=== PATIENT | female | born 1945 | race Caucasian/White ===

== ENCOUNTER 2018-09-18 13:49 | Inpatient (IN) | payer MEDICARE, MEDICAID ==
[2018-09-18 14:53] LABS: Hemoglobin 9.6 g/dL (12.0-16.0); Mean Corpuscular HGB CONC 29.7 g/dL (32.0-36.0); Mean Corpuscular Hemoglobin 28.9 pg (27.0-31.0); Mean Corpuscular Volume 97.3 fL (78.0-98.0); Mean Platelet Volume 7.2 fL (7.4-10.4); Platelet Count 307 thou/uL (130-400); RBC Distribution Width 18.1 % (11.5-14.5); White Blood Cell (WBC) Count 3.8 thou/uL (4.8-10.8)
[2018-09-18 14:58] LABS: Bilirubin Negative (Negative); Blood, Urine Negative (Negative); Clarity CLOUDY (Clear); Glucose, Urine (Dipstick) Negative (Negative); Leukocyte Moderate (Negative); Nitrite Negative (Negative); Protein, Urine (Dipstick) Negative (Neg-Trace); Specific Gravity, Urine 1.012 (1.002-1.036); Urobilinogen 0.2 mg/dL (0.2-1.0)
[2018-09-18 15:03] LABS: Bacteria/HPF 3+ HPF (None Seen); Hyaline Casts/LPF 7-10 HYALINE CAST LPF (0-3 Hyaline); Pathc Cast-AUWi Flag 0.95 (0-2.49); RBC/HPF None Seen HPF (0-3); Squamous Epithelial 0-3 HPF (0-3); WBC/HPF 21-50 HPF (0-3)
[2018-09-18 15:08] LABS: ALT (SGPT) Less than 7 U/L (8-55); AST (SGOT) 11 U/L (5-34); Albumin 3.6 g/dL (3.4-4.8); Alkaline Phosphatase 63 U/L (40-150); Anion Gap 12 mmol/L (10-20); BUN (Urea Nitrogen) 16 mg/dL (9.8-20.1); Bilirubin, Total 0.2 mg/dL (0.2-1.2); Calc. Creatinine Clearance 0 mL/min (70-130); Calcium 8.7 mg/dL (7.8-10.44); Carbon Dioxide 34 mmol/L (23-31); Chloride 101 mmol/L (98-107); Estimated GFR-MDRD 60; Globulin 3.2 g/dL (2.4-3.5); Glucose 93 mg/dL (83-110); Lipase 54 U/L (8-78); Potassium 5.3 mmol/L (3.5-5.1); Protein, Total 6.8 g/dL (6.0-8.3); Sodium 142 mmol/L (136-145)
[2018-09-18 15:10] LABS: Acetaminophen Less than 6.0 mcg/mL (10.0-30.0); Alcohol Less than 10 mg/dL (Less than 10); Salicylate Less than 8.0 mg/dL (15.0-30.0)
[2018-09-18 15:14] LABS: Amphetamine Not Detected (NotDetected); Barbiturates Screen Not Detected (NotDetected); Benzodiazepine Screen Not Detected (NotDetected); Cocaine Metabolite Screen Not Detected (NotDetected); Medtox Control Line Valid? VALID (VALID); Medtox Reader # READER 4; Methadone Not Detected (NotDetected); Methamphetamine Not Detected (NotDetected); Opiate Screen Not Detected (NotDetected); Oxycodone Screen Not Detected (NotDetected); Phencyclidine (PCP) Not Detected (NotDetected); THC/Cannabinoid Screen Not Detected (NotDetected); Tricyclic Screen Not Detected (NotDetected)
[2018-09-18 15:18] LABS: Anisocytosis MODERATE=16-30 cells (100X) (0-5/hpf); Band 5 % (5-11); Elliptocytes SLIGHT = 2-5 cells (100X) (0-1/hpf); Eosinophils 1 % (0-10); Hypochromia SLIGHT = 6-15 cells (100X) (0-5/hpf); Lymphocytes 32 % (21-51); MDiff Complete? YES; Monocytes 14 % (0-10); Neutrophil 47 % (42-75); Ovalocytes SLIGHT = 2-5 cells (100X) (0-1/hpf); Platelet Morphology Comment Appears Adequate; Poikilocytosis SLIGHT = 6-15 cells (100X) (0-5/hpf); Polychromasia SLIGHT = 2-3 cells (100X) (0-2/hpf); Reactive Lymphocytes 1 % (0-10)
--- NOTE | 2018-09-18 15:22 | RAD ---
PORTABLE CHEST: History: Hypoxia. Fatigue. Generalized weakness. Comparison: 01-03-16 FINDINGS: Heart size is enlarged. Increased retrocardiac density is felt to be on the basis of a hiatal hernia as well as what appears to be some increased parenchymal lung changes. There is now some blunting to the left costophrenic angle suggesting some associated effusion. There is also parenchymal change in the left base, probably related to atelectasis or scarring. Right lung is clear. Pulmonary vessels ar e not overtly engorged and no interstitial edema. IMPRESSION: 1. Marked cardiomegaly. 2. Increased retrocardiac density seen which appears to be a combination of some element of left side d effusion and hiatal hernia. POS: [facility]
--- NOTE | 2018-09-18 15:23 | CT ---
CT BRAIN: History: Increasing agitation, fatigue, generalized weakness, hypoxia. Date: 09-18-18 Comparison: 01-03-16 FINDINGS: Noncontrast enhanced CT images of the brain obtained and demonstrate some mild cortical atrophy and d eep white matter ischemic changes. No evidence of acute intracranial masses, hemorrhages, strokes or contusions seen. Ventricles are of normal size. IMPRESSION: No evidence of acute intracranial abnormalities seen. POS: [facility]
[2018-09-18] MEDS ORDERED: cefTRIAXone\\ROCEPHIN 1 GM VIAL ONE (16:14)
[2018-09-18] MEDS ORDERED: Ondansetron PF 4 MG/2 ML Vial IVP PRN ×2 (20:24→20:26)
[2018-09-18] MEDS ORDERED: Ondansetron ODT 4 MG TAB SL PRN (20:24)
[2018-09-18] MEDS ORDERED: Acetaminophen 325 MG TAB PO PRN ×2 (20:24→20:26)
[2018-09-18] MEDS ORDERED: Milk Of Magnesia 30 ML UDCUP PO PRN (20:26)
[2018-09-18] MEDS ORDERED: Ondansetron ODT 4 MG TAB PO PRN (20:26)
[2018-09-18] MEDS ORDERED: Lorazepam 1 MG TAB PO PRN (20:26)
[2018-09-18] MEDS ORDERED: Senokot S 8.6-50 MG TAB PO PRN (20:26)
[2018-09-18] MEDS ORDERED: Guaifenesin DM 100-10/5 ML UDCUP PO PRN (20:26)
[2018-09-18] MEDS ORDERED: Acetaminophen 650 MG Suppository PR PRN (20:26)
[2018-09-18] MEDS: Famotidine 20 MG TAB PO SCH (21:42)
[2018-09-18] MEDS: OLANZapine 5 MG TAB PO SCH (21:42)
[2018-09-18] MEDS: traZODone HCl 50 MG TAB PO SCH (21:43)
[2018-09-18] MEDS: Docusate 100 MG CAP PO SCH (21:43)
[2018-09-18] MEDS: clonazePAM 0.5 MG TAB PO SCH (21:43)
[2018-09-18] MEDS: Sodium Chloride 0.9% 1,000 ML IV SCH (21:47)
--- NOTE | 2018-09-18 23:23 | HP ---
PRIMARY CARE PHYSICIAN: Tracey Queen MD at [facility]. CHIEF COMPLAINT: Altered mental status. HISTORY OF PRESENT ILLNESS: This is a 73-year-old white female with a known history of schizophrenia who is often altered, per mcc report was more altered than normal. As a result, she was sent into the emergency room. She also has reportedly had agitation, fatigue and generalized weakness and some hypoxia per the mcc, though she is normally on 2 L of oxygen and has been saturating well on that in the emergency room. The patient was noted to have a moderate leukocyte esterase, 21-50 white blood cells and 3+ bacteria on her urinalysis and so is being admitted for UTI. Of note, her son and medical power of baccarat manager, Jose Lara reported that she had gained about 14 pounds in 14 days, though he believes it is because the nursing has been giving her some of her money to go buy Cokes and candy whenever she wanted to and so, he thinks that is the source of her weight gain. She has no known history of congestive heart failure as far as I can find from history of the chart. PAST MEDICAL HISTORY: All history taken from the patient's signed mcc chart and previous medical record as the patient is not able to give medical history due to her schizophrenia, as well as her current altered mental status. 1. History of schizophrenia. 2. Hypertension. 3. Dementia. 4. Chronic anemia. 5. Recurrent urinary tract infections with previous E coli sepsis in 2015. 6. Anxiety disorder. PAST SURGICAL HISTORY: Unknown. SOCIAL HISTORY: No known tobacco, alcohol, or illicit drug use. She has been in the [facility] for about 7 years now. Her brother is her medical power of baccarat manager. His name is Jose Lara. He reports that the patient is a do not attempt resuscitation. The patient is listed as full code on mcc chart. We will have Palliative Care confirm this with him to see about if he needs to sign any sort of [id number] DNR. FAMILY HISTORY: Father in his 80s with heart valve problems. Mother in her 80s and had infected bedsore and pulmonary embolism. She has three brothers and three sisters. One brother has of lung cancer. ALLERGIES: 1. PENICILLIN. 2. POPCORN. CURRENT MEDICATIONS: Per mcc chart: 1. Klonopin 0.5 mg at night. 2. Trazodone 50 mg at night. 3. Zyprexa 25 mg at bedtime. 4. Vitamin C 500 mg daily. 5. Colace 100 mg daily. 6. Vitamin B12 of 1000 mcg daily. 7. Depakote delayed release 750 mg twice a day. 8. Furosemide 20 mg daily. 9. Lisinopril 20 mg daily. 10. Norvasc 5 mg daily. 11. Multivitamin 1 tablet twice a day. 12. Synthroid 75 mcg daily. 13. Zantac 150 mg daily. 14. Zyprexa 25 mg at bedtime. 15. Tylenol as needed. 16. Robitussin DM as needed. 17. Maalox as needed. 18. Milk of magnesia as needed. 19. Zofran as needed. REVIEW OF SYSTEMS: Unable to obtain secondary to patient's schizophrenia and altered mental status. She does report pain in the bilateral hips, but was not able to give me any further history. PHYSICAL EXAMINATION: VITAL SIGNS: Blood pressure 128/46, pulse 85, respirations 18, temperature 98.1 , and O2 saturation 94% on 2 L. GENERAL: This is a well-developed obese white female, in no acute distress. Sleepy but arousable, was difficult to get her to stay awake enough to talk to me until I mentioned that we will be moving her to a different room and then, she woke up, was wide awake and was saying that she wanted to stay in the ER room and she did not want to be moved to another hospital and did not want to be moved to another room. HEENT: Pupils are equal, round, and reactive to light. Oropharynx clear without lesions, erythema, or exudate. NECK: Supple. No lymphadenopathy. No thyroid nodules or enlargement. HEART: Regular rate and rhythm. No murmurs, rubs, or gallops. LUNGS: Clear to auscultation bilaterally. No wheezes, crackles, or rhonchi. ABDOMEN: Soft, obese, nontender to palpation. Normoactive bowel sounds. No hepatosplenomegaly or other masses. It was difficult to get exam because when I would be about to start examining her belly, she would curl up into a ball and tense up her tummy. She did deny any pain while pressing on it though. EXTREMITIES: No clubbing, cyanosis, or edema. She did report some pain in bilateral hips with any sort of manipulation of her ankles. SKIN: The patient has some mild erythema of her bilateral legs and ankles, does not look like cellulitis, but does look like secondary to edema. She does have 1+ pitting edema in bilateral lower extremities. NEUROLOGIC: The patient is moving all extremities, has no facial droop. PSYCHIATRIC: She is alert. She was eventually alert once I said we are going to move her to a different room. She was oriented to person. She is in the hospital but does not know which hospital, does not know which town she is in and does not know the year. LABORATORY DATA: White blood cell count 3.8, hemoglobin 9.6, hematocrit 32.2, platelet count 307, normal differential. Complete metabolic panel is notable for potassium of 5.3, carbon dioxide of 34. Rest is normal. Lipase was negative. Ammonia was negative. Urinalysis had moderate leukocyte esterase, 21-50 white blood cells, 3+ bacteria, and some hyaline casts. Urine drug screen was negative. Serum toxicology screen was negative. CT of the brain was without any acute abnormalities. The patient's chest x-ray, we did review the chest x-ray done in the emergency room along with the radiologist's report. There was marked cardiomegaly and effusion in the left base, also may have little bit of a hiatal hernia. IMAGING: EKG: I did review the EKG done in the emergency room, which shows normal sinus rhythm with no ST-segment changes and no peaked T-waves. ASSESSMENT: 1. Altered mental status, uncertain what patient's baseline is, but it sounds that she gets altered easily and last time we had her in for altered mental status, she ended up not having a urinary tract infection or any other medical complaints. Her medical problems this time, it does look like she does have urinary tract infection. It does not look severe. She got a dose of Rocephin in the emergency room. We are culturing and we will continue Rocephin in the hospital. We will also continue patient's psychiatric medications. 2. Cardiomegaly with lower extremity edema and new effusion in the left lung base concerned for possibility of congestive heart failure from her chronic hypertension. She also has weight gain recently. I will check brain natriuretic peptide on her, get an echocardiogram, and we will start her on a low dose of Lasix. This will also help with her mild hyperkalemia. She does not appear to have cellulitis given her lower extremities, just some mild redness, but we will need to keep a close eye on that and treat if she develops anything more severe. We will put her on a low- salt, fluid-restricted diet. 3. Hyperkalemia, mild with no EKG changes. We will give a dose of Lasix and will monitor this closely. 4. Gastrointestinal prophylaxis. Continue patient's acid medication. 5. Deep venous thrombosis prophylaxis. We will put the patient on Lovenox and SCDs while in bed. I would like to keep a close eye on her H and H, because she has had a history of anemia in the past. 6. Hypertension. Resume patient's antihypertensives. 7. Schizophrenia. We will resume patient's psychiatric medications. 8. Code status. I did discuss this with the patient's medical power of baccarat manager , her brother, who stated that she is a do not attempt resuscitation. His name is Jose Lara. Job ID: [id number] MTDD
[2018-09-19 00:25] VITALS: BMI 34.4
[2018-09-19] MEDS: Sodium Chloride 0.9% 1,000 ML IV SCH (04:01)
[2018-09-19] MEDS: Furosemide 40 MG/4 ML VIAL SLOW IVP SCH ×2 (05:24→13:19)
[2018-09-19] MEDS: Levothyroxine Sodium 75 MCG TAB PO SCH (05:24)
[2018-09-19 08:02] LABS: Anion Gap 12 mmol/L (10-20); BUN (Urea Nitrogen) 15 mg/dL (9.8-20.1); Calc. Creatinine Clearance 96 mL/min (70-130); Calcium 8.3 mg/dL (7.8-10.44); Carbon Dioxide 32 mmol/L (23-31); Chloride 101 mmol/L (98-107); Estimated GFR-MDRD 63; Glucose 84 mg/dL (83-110); Potassium 4.9 mmol/L (3.5-5.1); Sodium 140 mmol/L (136-145)
[2018-09-19 08:19] LABS: Anisocytosis SLIGHT = 6-15 cells (100X) (0-5/hpf); Band 10 % (5-11); Eosinophils 2 % (0-10); Hemoglobin 8.9 g/dL (12.0-16.0); Hypochromia SLIGHT = 6-15 cells (100X) (0-5/hpf); Lymphocytes 29 % (21-51); MDiff Complete? YES; Mean Corpuscular HGB CONC 29.6 g/dL (32.0-36.0); Mean Corpuscular Hemoglobin 27.9 pg (27.0-31.0); Mean Corpuscular Volume 94.1 fL (78.0-98.0); Mean Platelet Volume 7.4 fL (7.4-10.4); Monocytes 5 % (0-10); Myelocyte 2 % (0-0); Neutrophil 50 % (42-75); Ovalocytes SLIGHT = 2-5 cells (100X) (0-1/hpf); Platelet Count 285 thou/uL (130-400); Poikilocytosis SLIGHT = 6-15 cells (100X) (0-5/hpf); RBC Distribution Width 17.9 % (11.5-14.5); Reactive Lymphocytes 2 % (0-10); White Blood Cell (WBC) Count 3.9 thou/uL (4.8-10.8)
[2018-09-19] MEDS ORDERED: Prevnar 13-Val Conj/PF 0.5 ML SYRINGE IM ONE (09:00)
[2018-09-19] MEDS: Cyanocobalamin (Vitamin B-12) 1,000 MCG TAB PO SCH (10:09)
[2018-09-19] MEDS: Ascorbic Acid 500 mg Chewable Tablet PO SCH (10:09)
[2018-09-19] MEDS: Multivit, Therapeutic 1 TAB PO SCH (10:09)
[2018-09-19] MEDS: Amlodipine 5 MG TAB PO SCH (10:10)
[2018-09-19] MEDS: Lisinopril 20 MG TAB PO SCH (10:10)
[2018-09-19] MEDS: Docusate 100 MG CAP PO SCH ×2 (10:10→22:06)
[2018-09-19] MEDS: Famotidine 20 MG TAB PO SCH ×2 (10:10→22:06)
[2018-09-19] MEDS: Enoxaparin Sodium 40 MG/0.4 ML SYRINGE SC SCH (10:11)
--- NOTE | 2018-09-19 12:10 | PDOC.PN ---
- Subjective Encounter Start Date: 09/19/18 Encounter Start Time: 08:40 -: old records requested/rev Patient seen and examined. No new complaints. No overnight events - Objective Resuscitation Status - Order Detail: 09/19/18 12:08 Resuscitation Status Routine Resuscitation Status: FULL: Full Resuscitation MAR Reviewed: Yes Vital Signs & Weight: Vital Signs (12 hours) Temp Pulse Pulse Resp BP BP BP 09/19/18 10:10 75 118/74 09/19/18 09:32 79 118/74 09/19/18 08:33 98.7 F 75 20 108/67 09/19/18 08:00 09/19/18 05:16 98.9 F 77 18 109/55 L 09/19/18 00:26 98.1 F 85 21 H 116/73 Pulse Ox Pulse Ox 09/19/18 10:10 09/19/18 09:32 96 09/19/18 08:33 97 09/19/18 08:00 97 09/19/18 05:16 97 09/19/18 00:26 91 L Weight Weight 233 lb I&O: 09/18/18 09/19/18 09/20/18 06:59 06:59 06:59 Intake Total 360 Balance 360 Result Diagrams: 09/19/18 07:25 09/19/18 07:25 Phys Exam - Physical Examination Constitutional: NAD HEENT: PERRLA, moist MMs, sclera anicteric Neck: no JVD, supple Respiratory: no wheezing, no rales, no rhonchi Cardiovascular: RRR, no significant murmur, no rub Gastrointestinal: soft, non-tender, no distention, positive bowel sounds Musculoskeletal: no edema, pulses present Neurological: moves all 4 limbs Lymphatic: no nodes Psychiatric: normal affect Skin: no rash, normal turgor Dx/Plan (1) Acute metabolic encephalopathy Code(s): G93.41 - METABOLIC ENCEPHALOPATHY Status: Acute (2) UTI (urinary tract infection) Status: Acute Comment: (3) Anemia, normocytic normochromic Code(s): D64.9 - ANEMIA, UNSPECIFIED Status: Chronic (4) Hypertension Code(s): I10 - ESSENTIAL (PRIMARY) HYPERTENSION Status: Chronic (5) Hypothyroidism Code(s): E03.9 - HYPOTHYROIDISM, UNSPECIFIED Status: Chronic (6) Obesity (BMI 30.0-34.9) Code(s): E66.9 - OBESITY, UNSPECIFIED Status: Chronic (7) Schizophrenia Code(s): F20.9 - SCHIZOPHRENIA, UNSPECIFIED Status: Chronic - Plan cont current plan of care, continue antibiotics * continue rocephin * home meds reconciled * follow up on culture * medication reviewed as below * symptomatic treatment. Review of Systems - Review of Systems Other: not reliable due to pt's level of cognitive status - Medications/Allergies Allergies/Adverse Reactions: Allergies Allergy/AdvReac Type Severity Reaction Status Date / Time Penicillins Allergy Verified 09/19/18 01:12 popcorn Allergy Uncoded 02/09/15 14:56 Medications: Current Medications Acetaminophen (Tylenol) 650 mg PO Q4H PRN PRN Reason: Headache/Fever/Mild Pain (1-3) Acetaminophen (Tylenol) 650 mg HI Q4H PRN PRN Reason: Headache/Fever/Mild Pain (1-3) Amlodipine Besylate (Norvasc) 5 mg PO DAILY [facility] Last Admin: 09/19/18 10:10 Dose: 5 mg Ascorbic Acid (Vitamin C) 500 mg PO DAILY [facility] Last Admin: 09/19/18 10:09 Dose: 500 mg Clonazepam (Klonopin) 0.5 mg PO [facility] Last Admin: 09/18/18 21:43 Dose: 0.5 mg Cyanocobalamin (Vitamin B-12) 1,000 mcg PO DAILY [facility] Last Admin: 09/19/18 10:09 Dose: 1,000 mcg Divalproex Sodium (Depakote Er) 1,000 mg PO HS [facility] Last Admin: 09/18/18 21:43 Dose: 1,000 mg Divalproex Sodium (Depakote) 750 mg PO BID [facility] Docusate Sodium (Colace) 100 mg PO BID [facility] Last Admin: 09/19/18 10:10 Dose: 100 mg Enoxaparin Sodium (Lovenox) 40 mg SC 0900 [facility] Last Admin: 09/19/18 10:11 Dose: 40 mg Famotidine (Pepcid) 20 mg PO BID [facility] Last Admin: 09/19/18 10:10 Dose: 20 mg Furosemide (Lasix) 40 mg SLOW IVP 0600,1400 [facility] Last Admin: 09/19/18 05:24 Dose: 40 mg Guaifenesin/Dextromethorphan (Robitussin Dm) 15 ml PO Q4H PRN PRN Reason: Cough Ceftriaxone Sodium 1 gm/ (Sodium Chloride) 100 mls @ 200 mls/hr IVPB Q24HR [facility] Levothyroxine Sodium (Synthroid) 75 mcg PO 0600 [facility] Last Admin: 09/19/18 05:24 Dose: 75 mcg Lisinopril (Zestril) 20 mg PO DAILY [facility] Last Admin: 09/19/18 10:10 Dose: 20 mg Lorazepam (Ativan) 2 mg PO Q6HR PRN PRN Reason: Anxiety Magnesium Hydroxide (Milk Of Magnesium) 10 ml PO Q4HR PRN PRN Reason: Constipation Multivitamins (Theragran) 1 tab PO DAILY [facility] Last Admin: 09/19/18 10:09 Dose: 1 tab Olanzapine (Zyprexa) 20 mg PO [facility] Last Admin: 09/18/18 21:42 Dose: 20 mg Ondansetron HCl (Zofran Odt) 4 mg PO Q6H PRN PRN Reason: Nausea/Vomiting Ondansetron HCl (Zofran) 4 mg IVP Q6H PRN PRN Reason: Nausea/Vomiting Pantoprazole Sodium (Protonix) 40 mg PO DAILY [facility] Last Admin: 09/19/18 10:09 Dose: 40 mg Rivastigmine (Exelon) 3 mg PO BID[facility] Senna/Docusate Sodium (Senokot S) 2 tab PO BID PRN PRN Reason: Constipation Trazodone HCl (Desyrel) 50 mg PO HS [facility] Last Admin: 09/18/18 21:43 Dose: 50 mg
[2018-09-19] MEDS: Rivastigmine 1.5 MG CAP PO SCH ×2 (13:16→17:53)
[2018-09-19] MEDS: cefTRIAXone\\ROCEPHIN 1 GM in Sodium Chloride 0.9% 100 ML IVPB SCH (17:39)
[2018-09-19] MEDS: Divalproex Sodium 250 MG (DR) TAB PO SCH (22:05)
[2018-09-19] MEDS: OLANZapine 5 MG TAB PO SCH (22:05)
[2018-09-19] MEDS: clonazePAM 0.5 MG TAB PO SCH (22:05)
[2018-09-19] MEDS: traZODone HCl 50 MG TAB PO SCH (22:06)
[2018-09-20] MEDS: Levothyroxine Sodium 75 MCG TAB PO SCH (05:23)
[2018-09-20] MEDS: Furosemide 40 MG/4 ML VIAL SLOW IVP SCH ×2 (05:24→14:29)
[2018-09-20] MEDS: Amlodipine 5 MG TAB PO SCH (08:17)
[2018-09-20] MEDS: Cyanocobalamin (Vitamin B-12) 1,000 MCG TAB PO SCH (08:18)
[2018-09-20] MEDS: Famotidine 20 MG TAB PO SCH ×2 (08:18→19:59)
[2018-09-20] MEDS: Lisinopril 20 MG TAB PO SCH (08:18)
[2018-09-20] MEDS: Divalproex Sodium 250 MG (DR) TAB PO SCH ×2 (08:18→19:59)
[2018-09-20] MEDS: Rivastigmine 1.5 MG CAP PO SCH ×2 (08:18→17:22)
[2018-09-20] MEDS: Ascorbic Acid 500 mg Chewable Tablet PO SCH (08:18)
[2018-09-20] MEDS: Enoxaparin Sodium 40 MG/0.4 ML SYRINGE SC SCH (08:19)
[2018-09-20] MEDS: Docusate 100 MG CAP PO SCH ×2 (08:19→19:59)
[2018-09-20] MEDS: Multivit, Therapeutic 1 TAB PO SCH (08:19)
[2018-09-20] MEDS ORDERED: Furosemide 20 MG TAB PO SCH (09:00)
--- NOTE | 2018-09-20 10:18 | PDOC.PN ---
- Subjective Encounter Start Date: 09/20/18 Encounter Start Time: 08:45 Patient seen and examined. No new complaints. No overnight events - Objective Resuscitation Status - Order Detail: 09/19/18 12:08 Resuscitation Status Routine Resuscitation Status: FULL: Full Resuscitation MAR Reviewed: Yes Vital Signs & Weight: Vital Signs (12 hours) Temp Pulse Resp BP BP Pulse Ox 09/20/18 08:18 100/69 09/20/18 08:17 78 100/69 09/20/18 08:13 98.9 F 74 20 100/69 96 09/20/18 08:00 96 09/20/18 04:15 98.1 F 78 18 100/51 L 93 L Weight Weight 233 lb I&O: 09/19/18 09/20/18 09/21/18 06:59 06:59 07:59 Intake Total 360 480 Balance 360 480 Result Diagrams: 09/19/18 07:25 09/19/18 07:25 Phys Exam - Physical Examination Constitutional: NAD HEENT: PERRLA, moist MMs, sclera anicteric Neck: no JVD, supple Respiratory: no wheezing, no rales, no rhonchi Cardiovascular: RRR, no significant murmur, no rub Gastrointestinal: soft, non-tender, no distention, positive bowel sounds Musculoskeletal: no edema, pulses present Neurological: moves all 4 limbs Lymphatic: no nodes Psychiatric: normal affect Skin: no rash, normal turgor Dx/Plan (1) Acute metabolic encephalopathy Code(s): G93.41 - METABOLIC ENCEPHALOPATHY Status: Acute (2) UTI (urinary tract infection) Status: Acute Comment: (3) Anemia, normocytic normochromic Code(s): D64.9 - ANEMIA, UNSPECIFIED Status: Chronic (4) Hypertension Code(s): I10 - ESSENTIAL (PRIMARY) HYPERTENSION Status: Chronic (5) Hypothyroidism Code(s): E03.9 - HYPOTHYROIDISM, UNSPECIFIED Status: Chronic (6) Obesity (BMI 30.0-34.9) Code(s): E66.9 - OBESITY, UNSPECIFIED Status: Chronic (7) Schizophrenia Code(s): F20.9 - SCHIZOPHRENIA, UNSPECIFIED Status: Chronic - Plan cont current plan of care, continue antibiotics, PT/OT * continue rocephin * medication reviewed as below * symptomatic treatment * follow culture. Review of Systems - Review of Systems ENT: negative: Ear Pain, Ear Discharge, Nose Pain, Nose Discharge, Nose Congestion, Mouth Pain, Mouth Swelling, Throat Pain, Throat Swelling, Other Respiratory: negative: Cough, Dry, Shortness of Breath, Hemoptysis, SOB with Excertion, Pleuritic Pain, Sputum, Wheezing Cardiovascular: negative: chest pain, palpitations, orthopnea, paroxysmal nocturnal dyspnea, edema, light headedness, other Gastrointestinal: negative: Nausea, Vomiting, Abdominal Pain, Diarrhea, Constipation, Melena, Hematochezia, Other Genitourinary: negative: Dysuria, Frequency, Incontinence, Hematuria, Retention , Other Musculoskeletal: negative: Neck Pain, Shoulder Pain, Arm Pain, Back Pain, Hand Pain, Leg Pain, Foot Pain, Other Skin: negative: Rash, Lesions, Maxime, Bruising, Other Other: not reliable due to level of cognitive status - Medications/Allergies Allergies/Adverse Reactions: Allergies Allergy/AdvReac Type Severity Reaction Status Date / Time Penicillins Allergy Verified 09/19/18 01:12 popcorn Allergy Uncoded 02/09/15 14:56 Medications: Current Medications Acetaminophen (Tylenol) 650 mg PO Q4H PRN PRN Reason: Headache/Fever/Mild Pain (1-3) Acetaminophen (Tylenol) 650 mg UT Q4H PRN PRN Reason: Headache/Fever/Mild Pain (1-3) Amlodipine Besylate (Norvasc) 5 mg PO DAILY [facility] Last Admin: 09/20/18 08:17 Dose: Not Given Ascorbic Acid (Vitamin C) 500 mg PO DAILY [facility] Last Admin: 09/20/18 08:18 Dose: 500 mg Clonazepam (Klonopin) 0.5 mg PO [facility] Last Admin: 09/19/18 22:05 Dose: 0.5 mg Cyanocobalamin (Vitamin B-12) 1,000 mcg PO DAILY [facility] Last Admin: 09/20/18 08:18 Dose: 1,000 mcg Divalproex Sodium (Depakote) 750 mg PO BID [facility] Last Admin: 09/20/18 08:18 Dose: 750 mg Docusate Sodium (Colace) 100 mg PO BID [facility] Last Admin: 09/20/18 08:19 Dose: 100 mg Enoxaparin Sodium (Lovenox) 40 mg SC 0900 [facility] Last Admin: 09/20/18 08:19 Dose: 40 mg Famotidine (Pepcid) 20 mg PO BID [facility] Last Admin: 09/20/18 08:18 Dose: 20 mg Furosemide (Lasix) 40 mg SLOW IVP 0600,1400 [facility] Last Admin: 09/20/18 05:24 Dose: 40 mg Guaifenesin/Dextromethorphan (Robitussin Dm) 15 ml PO Q4H PRN PRN Reason: Cough Ceftriaxone Sodium 1 gm/ (Sodium Chloride) 100 mls @ 200 mls/hr IVPB Q24HR [facility] Last Admin: 09/19/18 17:39 Dose: 100 mls Levothyroxine Sodium (Synthroid) 75 mcg PO 0600 [facility] Last Admin: 09/20/18 05:23 Dose: 75 mcg Lisinopril (Zestril) 20 mg PO DAILY [facility] Last Admin: 09/20/18 08:18 Dose: Not Given Lorazepam (Ativan) 2 mg PO Q6HR PRN PRN Reason: Anxiety Magnesium Hydroxide (Milk Of Magnesium) 10 ml PO Q4HR PRN PRN Reason: Constipation Multivitamins (Theragran) 1 tab PO DAILY [facility] Last Admin: 09/20/18 08:19 Dose: 1 tab Olanzapine (Zyprexa) 20 mg PO [facility] Last Admin: 09/19/18 22:05 Dose: 20 mg Ondansetron HCl (Zofran Odt) 4 mg PO Q6H PRN PRN Reason: Nausea/Vomiting Ondansetron HCl (Zofran) 4 mg IVP Q6H PRN PRN Reason: Nausea/Vomiting Pantoprazole Sodium (Protonix) 40 mg PO DAILY [facility] Last Admin: 09/20/18 08:17 Dose: 40 mg Rivastigmine (Exelon) 3 mg PO BID[facility] Last Admin: 09/20/18 08:18 Dose: 3 mg Senna/Docusate Sodium (Senokot S) 2 tab PO BID PRN PRN Reason: Constipation Trazodone HCl (Desyrel) 50 mg PO [facility] Last Admin: 09/19/18 22:06 Dose: 50 mg
[2018-09-20] MEDS: cefTRIAXone\\ROCEPHIN 1 GM in Sodium Chloride 0.9% 100 ML IVPB SCH (14:29)
--- NOTE | 2018-09-20 19:29 | EKG ---
Test Reason : Blood Pressure : / mmHG Vent. Rate : 084 BPM Atrial Rate : 084 BPM P-R Int : 142 ms QRS Dur : 068 ms QT Int : 376 ms P-R-T Axes : 053 -09 010 degrees QTc Int : 444 ms Normal sinus rhythm Low voltage QRS Borderline ECG Confirmed by MILO RAMSEY D.O. ([id number]), technical editor MOE PRINCE ([id number] on 09/20/2018 7:29:27 PM Referred By: Confirmed By:MILO RAMSEY D.O.
[2018-09-20] MEDS: clonazePAM 0.5 MG TAB PO SCH (19:58)
[2018-09-20] MEDS: traZODone HCl 50 MG TAB PO SCH (19:59)
[2018-09-20] MEDS: OLANZapine 5 MG TAB PO SCH (19:59)
[2018-09-21] MEDS: Furosemide 40 MG/4 ML VIAL SLOW IVP SCH (06:13)
[2018-09-21] MEDS: Levothyroxine Sodium 75 MCG TAB PO SCH (06:13)
[2018-09-21] MEDS: Ascorbic Acid 500 mg Chewable Tablet PO SCH (07:47)
[2018-09-21] MEDS: Cyanocobalamin (Vitamin B-12) 1,000 MCG TAB PO SCH (07:47)
[2018-09-21] MEDS: Multivit, Therapeutic 1 TAB PO SCH (07:47)
[2018-09-21] MEDS: Divalproex Sodium 250 MG (DR) TAB PO SCH ×2 (07:47→19:55)
[2018-09-21] MEDS: Famotidine 20 MG TAB PO SCH ×2 (07:48→19:56)
[2018-09-21] MEDS: Amlodipine 5 MG TAB PO SCH (07:48)
[2018-09-21] MEDS: Docusate 100 MG CAP PO SCH ×2 (07:48→19:55)
[2018-09-21] MEDS: Rivastigmine 1.5 MG CAP PO SCH ×2 (07:48→16:42)
[2018-09-21] MEDS: Enoxaparin Sodium 40 MG/0.4 ML SYRINGE SC SCH (07:48)
[2018-09-21] MEDS: Lisinopril 20 MG TAB PO SCH (07:49)
[2018-09-21 08:01] LABS: Anion Gap 14 mmol/L (10-20); BUN (Urea Nitrogen) 19 mg/dL (9.8-20.1); Calc. Creatinine Clearance 76 mL/min (70-130); Carbon Dioxide 30 mmol/L (23-31); Chloride 99 mmol/L (98-107); Estimated GFR-MDRD 48; Glucose 76 mg/dL (83-110); Potassium 4.6 mmol/L (3.5-5.1); Sodium 138 mmol/L (136-145)
[2018-09-21 08:29] LABS: Hemoglobin 9.1 g/dL (12.0-16.0); Mean Corpuscular HGB CONC 28.5 g/dL (32.0-36.0); Mean Corpuscular Hemoglobin 27.7 pg (27.0-31.0); Mean Corpuscular Volume 97.4 fL (78.0-98.0); Mean Platelet Volume 7.5 fL (7.4-10.4); Platelet Count 253 thou/uL (130-400); RBC Distribution Width 17.7 % (11.5-14.5); Red Blood Cell (RBC) Count 3.29 mill/uL (4.20-5.40); White Blood Cell (WBC) Count 3.5 thou/uL (4.8-10.8)
--- NOTE | 2018-09-21 09:50 | PDOC.PN ---
- Subjective Encounter Start Date: 09/21/18 Encounter Start Time: 08:15 Patient seen and examined. No new complaints. No overnight events pt is subjectively not feeling good, hurting all over - Objective Resuscitation Status - Order Detail: 09/19/18 12:08 Resuscitation Status Routine Resuscitation Status: FULL: Full Resuscitation MAR Reviewed: Yes Vital Signs & Weight: Vital Signs (12 hours) Temp Pulse Resp BP Pulse Ox 09/21/18 07:27 98.8 F 74 20 94/58 L 97 09/21/18 04:30 97.7 F 75 18 118/73 94 L 09/21/18 00:00 93 L 09/20/18 21:31 93 L Weight Weight 233 lb I&O: 09/20/18 09/21/18 09/22/18 05:59 06:59 06:59 Intake Total 270 Balance 270 Result Diagrams: 09/21/18 07:06 09/21/18 07:06 Radiology Reviewed by me: Yes (echo noted) Phys Exam - Physical Examination Constitutional: NAD HEENT: PERRLA, moist MMs, sclera anicteric Neck: no JVD, supple Respiratory: no wheezing, no rales, no rhonchi Cardiovascular: RRR, no significant murmur, no rub Gastrointestinal: soft, non-tender, no distention, positive bowel sounds Musculoskeletal: no edema, pulses present Neurological: non-focal, normal sensation Lymphatic: no nodes Psychiatric: normal affect Skin: no rash, normal turgor Dx/Plan (1) Acute on chronic diastolic ACC/AHA stage C congestive heart failure Code(s): I50.33 - ACUTE ON CHRONIC DIASTOLIC (CONGESTIVE) HEART FAILURE Status : Acute (2) Acute metabolic encephalopathy Code(s): G93.41 - METABOLIC ENCEPHALOPATHY Status: Resolved (3) UTI (urinary tract infection) Status: Acute Comment: (4) Anemia, normocytic normochromic Code(s): D64.9 - ANEMIA, UNSPECIFIED Status: Chronic (5) Hypertension Code(s): I10 - ESSENTIAL (PRIMARY) HYPERTENSION Status: Chronic (6) Hypothyroidism Code(s): E03.9 - HYPOTHYROIDISM, UNSPECIFIED Status: Chronic (7) Obesity (BMI 30.0-34.9) Code(s): E66.9 - OBESITY, UNSPECIFIED Status: Chronic (8) Schizophrenia Code(s): F20.9 - SCHIZOPHRENIA, UNSPECIFIED Status: Chronic - Plan cont current plan of care, continue antibiotics, PT/OT * today will change to PO lasix * medication reviewed as below * symptomatic treatment * continue rocephin * continue PT * expecting discharge tomorrow. * repeat labs tomorrow Review of Systems - Review of Systems Constitutional: malaise. negative: fever, chills, sweats, weakness, other ENT: negative: Ear Pain, Ear Discharge, Nose Pain, Nose Discharge, Nose Congestion, Mouth Pain, Mouth Swelling, Throat Pain, Throat Swelling, Other Respiratory: negative: Cough, Dry, Shortness of Breath, Hemoptysis, SOB with Excertion, Pleuritic Pain, Sputum, Wheezing Cardiovascular: negative: chest pain, palpitations, orthopnea, paroxysmal nocturnal dyspnea, edema, light headedness, other Gastrointestinal: negative: Nausea, Vomiting, Abdominal Pain, Diarrhea, Constipation, Melena, Hematochezia, Other Genitourinary: negative: Dysuria, Frequency, Incontinence, Hematuria, Retention , Other Musculoskeletal: negative: Neck Pain, Shoulder Pain, Arm Pain, Back Pain, Hand Pain, Leg Pain, Foot Pain, Other - Medications/Allergies Allergies/Adverse Reactions: Allergies Allergy/AdvReac Type Severity Reaction Status Date / Time Penicillins Allergy Verified 09/19/18 01:12 popcorn Allergy Uncoded 02/09/15 14:56 Medications: Current Medications Acetaminophen (Tylenol) 650 mg PO Q4H PRN PRN Reason: Headache/Fever/Mild Pain (1-3) Acetaminophen (Tylenol) 650 mg MO Q4H PRN PRN Reason: Headache/Fever/Mild Pain (1-3) Amlodipine Besylate (Norvasc) 5 mg PO DAILY [facility] Last Admin: 09/21/18 07:48 Dose: Not Given Ascorbic Acid (Vitamin C) 500 mg PO DAILY [facility] Last Admin: 09/21/18 07:47 Dose: 500 mg Clonazepam (Klonopin) 0.5 mg PO HS [facility] Last Admin: 09/20/18 19:58 Dose: 0.5 mg Cyanocobalamin (Vitamin B-12) 1,000 mcg PO DAILY [facility] Last Admin: 09/21/18 07:47 Dose: 1,000 mcg Divalproex Sodium (Depakote) 750 mg PO BID [facility] Last Admin: 03/10/19 07:47 Dose: 750 mg Docusate Sodium (Colace) 100 mg PO BID [facility] Last Admin: 09/21/18 07:48 Dose: 100 mg Enoxaparin Sodium (Lovenox) 40 mg SC 0900 [facility] Last Admin: 09/21/18 07:48 Dose: 40 mg Famotidine (Pepcid) 20 mg PO BID [facility] Last Admin: 09/21/18 07:48 Dose: 20 mg Furosemide (Lasix) 20 mg PO DAILY [facility] Guaifenesin/Dextromethorphan (Robitussin Dm) 15 ml PO Q4H PRN PRN Reason: Cough Ceftriaxone Sodium 1 gm/ (Sodium Chloride) 100 mls @ 200 mls/hr IVPB Q24HR [facility] Last Admin: 09/20/18 14:29 Dose: 100 mls Levothyroxine Sodium (Synthroid) 75 mcg PO 0600 [facility] Last Admin: 09/21/18 06:13 Dose: 75 mcg Lisinopril (Zestril) 20 mg PO DAILY [facility] Last Admin: 09/21/18 07:49 Dose: Not Given Lorazepam (Ativan) 2 mg PO Q6HR PRN PRN Reason: Anxiety Last Admin: 09/20/18 11:34 Dose: 2 mg Magnesium Hydroxide (Milk Of Magnesium) 10 ml PO Q4HR PRN PRN Reason: Constipation Multivitamins (Theragran) 1 tab PO DAILY [facility] Last Admin: 09/21/18 07:47 Dose: 1 tab Olanzapine (Zyprexa) 20 mg PO [facility] Last Admin: 09/20/18 19:59 Dose: 20 mg Ondansetron HCl (Zofran Odt) 4 mg PO Q6H PRN PRN Reason: Nausea/Vomiting Ondansetron HCl (Zofran) 4 mg IVP Q6H PRN PRN Reason: Nausea/Vomiting Pantoprazole Sodium (Protonix) 40 mg PO DAILY [facility] Last Admin: 09/21/18 07:48 Dose: 40 mg Rivastigmine (Exelon) 3 mg PO BID[facility] Last Admin: 09/21/18 07:48 Dose: 3 mg Senna/Docusate Sodium (Senokot S) 2 tab PO BID PRN PRN Reason: Constipation Trazodone HCl (Desyrel) 50 mg PO [facility] Last Admin: 09/20/18 19:59 Dose: 50 mg
[2018-09-21 10:08] LABS: Anisocytosis SLIGHT = 6-15 cells (100X) (0-5/hpf); Band 3 % (5-11); Elliptocytes SLIGHT = 2-5 cells (100X) (0-1/hpf); Eosinophils 2 % (0-10); Hypochromia SLIGHT = 6-15 cells (100X) (0-5/hpf); Lymphocytes 12 % (21-51); MDiff Complete? YES; Monocytes 16 % (0-10); Neutrophil 63 % (42-75); Platelet Morphology Comment Appears Adequate; Polychromasia SLIGHT = 2-3 cells (100X) (0-2/hpf); Reactive Lymphocytes 4 % (0-10)
[2018-09-21] MEDS: Furosemide 20 MG TAB PO SCH (10:48)
[2018-09-21] MEDS: cefTRIAXone\\ROCEPHIN 1 GM in Sodium Chloride 0.9% 100 ML IVPB SCH (16:41)
[2018-09-21] MEDS: clonazePAM 0.5 MG TAB PO SCH (19:55)
[2018-09-21] MEDS: traZODone HCl 50 MG TAB PO SCH (19:55)
[2018-09-21] MEDS: OLANZapine 5 MG TAB PO SCH (19:57)
[2018-09-22] MEDS: Levothyroxine Sodium 75 MCG TAB PO SCH (05:29)
[2018-09-22 07:52] LABS: Hemoglobin 8.4 g/dL (12.0-16.0); Mean Corpuscular HGB CONC 29.8 g/dL (32.0-36.0); Mean Corpuscular Hemoglobin 27.9 pg (27.0-31.0); Mean Corpuscular Volume 93.9 fL (78.0-98.0); Mean Platelet Volume 7.5 fL (7.4-10.4); Platelet Count 246 thou/uL (130-400); RBC Distribution Width 17.4 % (11.5-14.5); White Blood Cell (WBC) Count 2.9 thou/uL (4.8-10.8)
[2018-09-22 08:04] LABS: Anion Gap 13 mmol/L (10-20); BUN (Urea Nitrogen) 19 mg/dL (9.8-20.1); Calc. Creatinine Clearance 100 mL/min (70-130); Calcium 7.9 mg/dL (7.8-10.44); Carbon Dioxide 30 mmol/L (23-31); Chloride 101 mmol/L (98-107); Estimated GFR-MDRD 66; Glucose 86 mg/dL (83-110); Potassium 4.8 mmol/L (3.5-5.1); Sodium 139 mmol/L (136-145)
[2018-09-22] MEDS: Famotidine 20 MG TAB PO SCH (08:09)
[2018-09-22] MEDS: Divalproex Sodium 250 MG (DR) TAB PO SCH (08:09)
[2018-09-22] MEDS: Docusate 100 MG CAP PO SCH (08:09)
[2018-09-22] MEDS: Cyanocobalamin (Vitamin B-12) 1,000 MCG TAB PO SCH (08:09)
[2018-09-22] MEDS: Rivastigmine 1.5 MG CAP PO SCH ×2 (08:09→16:57)
[2018-09-22] MEDS: Ascorbic Acid 500 mg Chewable Tablet PO SCH (08:09)
[2018-09-22] MEDS: Furosemide 20 MG TAB PO SCH (08:10)
[2018-09-22] MEDS: Enoxaparin Sodium 40 MG/0.4 ML SYRINGE SC SCH (08:10)
[2018-09-22] MEDS: Multivit, Therapeutic 1 TAB PO SCH (08:10)
[2018-09-22] MEDS: Amlodipine 5 MG TAB PO SCH (08:10)
[2018-09-22] MEDS: Lisinopril 20 MG TAB PO SCH (08:11)
[2018-09-22 09:17] LABS: Band 9 % (5-11); Hypochromia SLIGHT = 6-15 cells (100X) (0-5/hpf); Lymphocytes 27 % (21-51); MDiff Complete? YES; Monocytes 7 % (0-10); Neutrophil 56 % (42-75); Platelet Morphology Comment Appears Adequate; Polychromasia SLIGHT = 2-3 cells (100X) (0-2/hpf); Reactive Lymphocytes 1 % (0-10)
--- NOTE | 2018-09-22 11:18 | DIS ---
DATE OF ADMISSION: 09/18/2018 DATE OF DISCHARGE: 09/22/2018 PRIMARY CARE PHYSICIAN: [facility] Call admission. DISCHARGE DISPOSITION: correction home. PRIMARY DISCHARGE DIAGNOSES: 1. Acute on chronic diastolic congestive heart failure, stage C. 2. Urinary tract infection. 3. Acute metabolic encephalopathy, improved. SECONDARY DISCHARGE DIAGNOSES: Schizophrenia, obesity, hypothyroidism, hypertension, and normocytic normochromic anemia. PRIMARY PROCEDURE/OPERATION: None. RADIOLOGICAL INVESTIGATION: Chest x-ray showed cardiomegaly. CT brain negative for any acute intracranial process. Echocardiography showed diastolic dysfunction. SIGNIFICANT LABORATORY DATA: WBC 2.9, hemoglobin 8.4, and platelet 246. Sodium 139, potassium 4.8, BUN 19, creatinine 0.85, and calcium 7.9. LFT normal. BNP 42.2. Lipase 54. Urinalysis suggestive of UTI. Urine drug screen negative. Serum drug screen negative. Urine culture was not obtained. DISCHARGE MEDICATIONS: 1. Tylenol 650 mg q.4 hourly p.r.n. 2. Maalox 30 mL p.o. q.4 hourly p.r.n. 3. Milk of magnesia 10 mL q.4 hourly p.r.n. 4. Norvasc 5 mg daily. 5. Vitamin C 500 mg daily. 6. Vitamin B12 of 1000 mcg p.o. daily. 7. Depakote 750 mg p.o. b.i.d. 8. Colace 100 mg daily. 9. Lasix 20 mg p.o. daily. 10. Robitussin with DM 10 mL q.4 hourly p.r.n. 11. Levothyroxine 75 mcg p.o. daily. 12. Lisinopril 20 mg daily. 13. Zyprexa 25 mg p.o. at bedtime. 14. Trazodone 50 mg p.o. at bedtime. 15. Ocuvite 1 capsule p.o. b.i.d. 16. Zantac 150 mg p.o. daily. 17. Omnicef 300 mg p.o. b.i.d. for 5 more days. CONTRAINDICATION: None. CODE STATUS: Full code. INPATIENT BAR GAUGER AND LUBRICATOR TENDER: None. ALLERGIES: PENICILLIN. DISCHARGE PLAN: Posthospital, the patient will follow up with primary care physician at [facility]. HOSPITAL COURSE: A 73-year-old female with above-mentioned medical problem, who lives at [facility], who was admitted by Dr. Flavio Acosta, please see his H and P for further details. On admission, the patient was confused. She was having metabolic encephalopathy. Her CT brain was negative for any acute intracranial process. She was also having congestion as well as lower extremity edema. Her BNP was normal because of morbid obesity, but clinically, she was having congestive heart failure. We obtain echocardiography, which showed diastolic dysfunction. The patient was treated with Lasix while in hospital to euvolemic status. Her urinary tract infection was treated with Rocephin while in hospital. On discharge, we changed to Omnicef. The patient has full code status as per the patient and family member. The patient will be discharged to half-way home with the help of disease case manager rn. The patient is seen and examined at bedside today. All review of systems reviewed with her are negative. Please see my progress note from today for further detail. Paperwork for discharge done and discharge medication reconciliation done. Total time spent on discharge day, 31 minutes. Job ID: [id number]
[2018-09-22 12:48] VITALS: BP 120/71; TEMP 98.2
[2018-09-22] MEDS: cefTRIAXone\\ROCEPHIN 1 GM in Sodium Chloride 0.9% 100 ML IVPB SCH (16:56)
== END 2018-09-22 18:10 | DRG 291 ==
LOC: ERS 13:49 → ERHOLD 16:58 → T4-A 20:17
PROVIDERS: ADMIT Emergency Medicine; ATTEND Emergency Medicine
DX: I11.0 Hypertensive heart disease with heart failure (principal); G93.41 Metabolic encephalopathy; N39.0 Urinary tract infection, site not specified; I50.33 Acute on chronic diastolic (congestive) heart failure; E87.5 Hyperkalemia; F20.9 Schizophrenia, unspecified; E03.9 Hypothyroidism, unspecified; E66.9 Obesity, unspecified; Z68.34 Body mass index [BMI] 34.0-34.9, adult; D64.9 Anemia, unspecified
CPT/HCPCS: 36415; 51701; 70450; 71045; 80048; 80053; 80306; 80307; 81003; 81015; 82140; 83690; 83880; 85025; 90471; 90670; 93005; 93306; 96365; G0009; J0696; J1650; J1940; J7050

== ENCOUNTER 2019-08-27 09:44 | Inpatient (IN) | payer MEDICARE, MEDICAID ==
[2019-08-27 10:28] LABS: Actual Bicarbonate (HCO3a) 32.6 mEq/L (22-28); Analyzer IN Cardio ER; Base Excess (BEa) 4.5 mEq/L (-2.0 to +3.0); Calcium, Ionized 1.13 mmol/L (1.12-1.30); Carboxyhemoglobin (COHb) 0.2 gm% (0.0-3.0); Hemoglobin (Hb) 8.9 g/dL (12.0-16.0); O2 Tension (PaO2) 75.8 mmHg (> 70.0); Potassium - ABG Lab 4.99 mmol/L (3.70-5.30); pH, Arterial 7.27 (7.35-7.45)
[2019-08-27] MEDS ORDERED: Azithromycin 500 MG VIAL ONE (10:38)
[2019-08-27 10:43] LABS: Band 19 % (5-11); Hemoglobin 8.1 g/dL (12.0-16.0); Lymphocytes 12 % (21-51); MDiff Complete? YES; Mean Corpuscular HGB CONC 29.5 g/dL (32.0-36.0); Mean Corpuscular Hemoglobin 28.9 pg (27.0-31.0); Mean Corpuscular Volume 97.8 fL (78.0-98.0); Mean Platelet Volume 6.7 fL (7.4-10.4); Metamyelocyte 2 % (0-0); Monocytes 13 % (0-10); Myelocyte 8 % (0-0); Neutrophil 45 % (42-75); Platelet Count 425 thou/uL (130-400); Platelet Morphology Comment Appears Increased; RBC Distribution Width 14.8 % (11.5-14.5); RBC Morphology 1; Toxic Granulation SLIGHT; White Blood Cell (WBC) Count 11.6 thou/uL (4.8-10.8)
[2019-08-27 10:49] LABS: CO2 Tension 72.2 mmHg (35.0-45.0); Puncture Site LRA
[2019-08-27 10:52] LABS: ALT (SGPT) 58 U/L (8-55); AST (SGOT) 70 U/L (5-34); Albumin 3.5 g/dL (3.4-4.8); Alkaline Phosphatase 109 U/L (40-110); Anion Gap 11 mmol/L (10-20); BUN (Urea Nitrogen) 18 mg/dL (9.8-20.1); Bilirubin, Total 0.3 mg/dL (0.2-1.2); Calc. Creatinine Clearance 0 mL/min (70-130); Calcium 8.3 mg/dL (7.8-10.44); Carbon Dioxide 33 mmol/L (23-31); Chloride 101 mmol/L (98-107); Estimated GFR-MDRD 58; Globulin 3.2 g/dL (2.4-3.5); Glucose 138 mg/dL (83-110); Potassium 5.2 mmol/L (3.5-5.1); Protein, Total 6.7 g/dL (6.0-8.3); Sodium 140 mmol/L (136-145)
--- NOTE | 2019-08-27 10:59 | RAD ---
PORTABLE CHEST 1 VIEW: Date: 08/27/2019 Time: 1039 hours HISTORY: Cough. FINDINGS/IMPRESSION: Comparison made with exam of 09/18/2018. The heart size is borderline. There are infiltrates in the right infrahilar, left mid, and left basil ar lung regions. No pneumothoraces or large pleural effusions are seen. Findings are suspicious for p neumonia. POS: OFF
[2019-08-27 11:05] LABS: Bacteria/HPF 4+ HPF (None Seen); Bilirubin Negative (Negative); Blood, Urine Negative (Negative); Clarity Turbid (Clear); Glucose, Urine (Dipstick) Normal (Negative); Leukocyte 75 Leu/uL (Negative); Nitrite Negative (Negative); Protein, Urine (Dipstick) 70 mg/dL (Neg-Trace); RBC/HPF 0-3 HPF (0-3); Squamous Epithelial 0-3 HPF (0-3)
[2019-08-27 11:32] LABS: Analyzer IN Cardio ER; Base Excess (BEa) 1.2 mEq/L (-2.0 to +3.0); Calcium, Ionized 1.12 mmol/L (1.12-1.30); Carboxyhemoglobin (COHb) 0.4 gm% (0.0-3.0); Hemoglobin (Hb) 8.5 g/dL (12.0-16.0); O2 Tension (PaO2) 107.2 mmHg (> 70.0); Potassium - ABG Lab 4.91 mmol/L (3.70-5.30)
[2019-08-27] MEDS ORDERED: cefTRIAXone\\ROCEPHIN 2 GM VIAL ONE (11:35)
[2019-08-27] MEDS ORDERED: Rocuronium Bromide 10 MG/ML (10ML VIAL) ONE (11:36)
[2019-08-27] MEDS ORDERED: Ketamine 50 MG/ML (10ML VIAL) ONE (11:36)
--- NOTE | 2019-08-27 12:04 | RAD ---
Exam: Chest one view HISTORY:Cough. Respiratory distress. Status post intubation Comparison: 08/27/2019 at 10:39 AM FINDINGS: Cardiac silhouette:Upper normal cardiac silhouette Aorta: Unremarkable Pulmonary vessels: Normal Costophrenic angles: Clear Lines and tubes: Interval placement of endotracheal tube. Distal tip is 3.9 cm above the uzair. LUNGS: Scattered interstitial opacities, unchanged. Pneumothorax: None Osseous abnormalities: None IMPRESSION: Interval placement of endotracheal tube. Otherwise, no significant interval change.
[2019-08-27] MEDS ORDERED: Guaifenesin DM 100-10/5 ML UDCUP PO PRN (12:11)
--- NOTE | 2019-08-27 13:38 | CT ---
CT PULMONARY ANGIOGRAM WITH IV CONTRAST AND 3D POSTPROCESSING: HISTORY: Respiratory failure, dyspnea. FINDINGS: There is good contrast opacification of the pulmonary arterial vasculature without filling defects to suggest pulmonary embolism. No thoracic aortic aneurysm is seen and no pericardial or right pleural effusion is identified. There is trace left pleural effusion. There are bibasilar infiltrates, left greater than right. Infiltrates are also seen in the left perihilar region of the perihilar region of the left upper lobe and the superior segment of the right lower lobe. A hiatal hernia is present. There are degenerative changes in the spine. Endotracheal and nasogastric tubes are present. IMPRESSION: No CT evidence of pulmonary embolism. POS: OFF
[2019-08-27 13:55] LABS: CO2 Tension 77.4 mmHg (35.0-45.0); Puncture Site RRA; pH, Arterial 7.21 (7.35-7.45)
[2019-08-27 15:11] LABS: Base Excess (BEa) -0.3 mEq/L (-2.0 to +3.0); CO2 Tension 43.5 mmHg (35.0-45.0); Calcium, Ionized 1.05 mmol/L (1.12-1.30); O2 Tension (PaO2) 69.9 mmHg (> 70.0); Potassium - ABG Lab 3.87 mmol/L (3.70-5.30); Puncture Site RB; pH, Arterial 7.38 (7.35-7.45)
[2019-08-27 15:12] LABS: ALV-art Gradient 160.925 (0-20)
--- NOTE | 2019-08-27 15:25 | CON ---
DATE OF CONSULTATION: HISTORY OF PRESENT ILLNESS: Noy Lara is a 74-year-old female from a [facility], who is intubated on the vent. I spoke to her brother from [place], Jose Lara, says he is power of patent attorney. They have discussed before with the siblings that they wanted to make her a full code. However, I told him that she was on a breathing machine and apparently, the patient has very poor quality of life. She has schizophrenia and bipolar disorder, wheelchair for most of her life, bedridden, did not walk much. She was brought into the hospital with mental status change. She is now intubated. It is unclear whether she was able to give any history, but medical records revealed the past medical history, 1. CHF. 2. Hypothyroidism. 3. Anemia. 4. Hypertension. 5. Bipolar. 6. COPD, though she has never smoked. 7. Schizophrenia and dementia, wheelchair ridden. SOCIAL HISTORY: Tobacco, none. Alcohol, none. MEDICATIONS: As outlined; 1. Trazodone 50. 2. Zantac. 3. Synthroid 75. 4. Lisinopril 20. 5. Lasix 20. 6. Omnicef 300. 7. Ascorbic acid 500. 8. Amlodipine 5. ALLERGIES: PENICILLIN. REVIEW OF SYSTEMS: Unobtainable on the vent. PHYSICAL EXAMINATION: GENERAL: Morbidly obese. VITAL SIGNS: Pulse 92, blood pressure 120/80, saturations are 95%, respiratory rate 17. CHEST: Bilateral wheezing or rhonchi. CARDIAC: Normal S1 and S2. No gallops. ABDOMEN: Massive. NEUROLOGIC: Sedated. EXTREMITIES: No edema. LABORATORY DATA: White count 11,000, H and H of 8 and 26, platelet count 425, 45 segs, 13 monocytes, 19 bands, 2 metamyelocytes. PO2 was 75, pCO2 was 72%, pH of 7.25 on BiPAP on 40%. PO2 post intubation showed 107, pCO2 of 77, pH of 7.21. Repeat blood gas showed much better oxygenation. Lytes are normal. Potassium is 5.2, bicarb is 33. Urine is negative. Influenza titer was negative. IMAGING DATA: Chest x-ray shows cardiomegaly. CT shows nonspecific bilateral chronic scarring. I doubt she got significant pneumonia. ASSESSMENT: 1. Chronic obstructive pulmonary disease, respiratory failure, superimposed pneumonia. 2. Bipolar disorder. 3. Hypothyroidism. 4. Severe deconditioning. PLAN: As discussed with the brother, she has little quality of life. We will try and get an additional information from rest of the brother and sisters when they arrive, see what the plan is. She had an echocardiogram done several months ago, which showed that she had normal EF of 50% to 55%. I will start on aggressive neb treatments and continue antibiotics, DVT prophylaxis and proton pump inhibitors. This is a 45 minutes of critical care time. Job ID: [id number]
[2019-08-27] MEDS ORDERED: Propofol BOLUS 1,000 MG/100 ML VIAL IV PRN (16:06)
[2019-08-27] MEDS ORDERED: Lorazepam 2 MG/ML VIAL SLOW IVP PRN (16:06)
[2019-08-27] MEDS ORDERED: DISCONTINUE PREVIOUS NARCOTIC PAIN MEDICATIONS AND BENZODIAZEPINES FS SCH (16:06)
[2019-08-27] MEDS ORDERED: Morphine 2 MG/ML SYRINGE SLOW IVP PRN (16:06)
[2019-08-27] MEDS ORDERED: Fentanyl BOLUS 250 ML IVPB PRN (16:06)
[2019-08-27] MEDS ORDERED: fentaNYL Citrate/PF 2,000 MCG in Sodium Chloride 0.9% 60 ML IV SCH (16:06)
[2019-08-27] MEDS: Sodium Chloride 0.9% 1,000 ML IV SCH (16:15)
[2019-08-27] MEDS ORDERED: Iopamidol-370 76% 500 ML 1 ML ONE (16:28)
[2019-08-27] MEDS: methylPREDNISolone Sod Succ 40 MG VIAL IVP SCH ×2 (17:33→23:44)
[2019-08-27] MEDS: Propofol 1,000 MG/100 ML VIAL IV PRN ×2 (17:33→23:44)
[2019-08-27] MEDS: Famotidine/PF 20 mg/2ml Vial SLOW IVP SCH (20:51)
[2019-08-27] MEDS: Enoxaparin Sodium 40 MG/0.4 ML SYRINGE SC SCH (20:51)
[2019-08-27] MEDS: Cefepime 2 GM in Sodium Chloride 0.9% 100 ML IVPB SCH (20:51)
[2019-08-27] MEDS: Divalproex Sodium DR 500 MG TAB PO SCH (20:57)
--- NOTE | 2019-08-27 23:37 | HP ---
CHIEF COMPLAINT: Hypoxic respiratory failure. HISTORY OF PRESENT ILLNESS: A 74-year-old female with a history of schizophrenia, bipolar disorder, and failure to thrive, mostly wheelchair and bedridden, presenting with hypoxia and multilobar pneumonia. Her sats varied in the 80s and temp of 99.5. Sepsis alert initiated in the ER. After a trial of BiPAP, she did not improve. She was intubated. Had mild hyperkalemia of 5.2. CT chest, no evidence of pulmonary embolism. No family member at bedside to gather further information. However, it has been noted that she is mostly wheelchair bound and failure to thrive. In the ER, blood cultures and urine cultures have been done. Flu test was negative. She was given ceftriaxone and Zithromax and then 30 mL/kg IV fluid resuscitation. REVIEW OF SYSTEMS: Not obtainable. ALLERGIES: SHE IS ALLERGIC TO PENICILLIN. MEDICAL HISTORY: Schizophrenia, bipolar disorder, hypothyroidism, wheelchair ambulation and bedridden. SOCIAL HISTORY: Not able to be obtained. FAMILY HISTORY: Not obtainable. PHYSICAL EXAMINATION: VITAL SIGNS: Her temp is 98.4, pulse is 86, blood pressure 114/85. She is intubated. HEENT: Pupils equal, round, and reactive to light. GENERAL: She is on the obese side. CARDIOVASCULAR: Regular rate and rhythm without murmurs, rubs, or gallops. LUNGS: Anterior auscultation. No adventitious lung sounds. ABDOMEN: Quite benign with bowel sounds positive. Nontender. EXTREMITIES: No obvious pitting edema or rash. There is a small macular papular soft tissue on her right leg. No ecchymosis or rash. No pitting edema. LABORATORY STUDIES: WBC 11.6, platelets 425, hemoglobin 8.1. Potassium 5.2. BNP 200. Her creatinine is 0.95. Rest of the panel are in the normal range. CT chest negative for pulmonary embolism. Chest x-ray infiltrate in the right, infrahilar in the left, as well as left basilar lung regions. IMPRESSION AND PLAN: This is a 74-year-old female with history of schizophrenia and bipolar hypothyroidism, presenting with: 1. Sepsis secondary to community-acquired pneumonia causing acute respiratory failure requiring intubation 2. Multilobar pneumonia. 3. Schizophrenia. 4. Bipolar disorder. 5. Hypothyroidism. 6. Failure to thrive with limited ambulation with a wheelchair and bedridden. 7. Mild hyperkalemia with K of 5.2. The patient will be in the ICU. Her blood pressure is holding up. she got 2.5 liters of fluid based on 30ml/kg sepsis protocol. Due to her significant comorbidities, I am starting her on cefepime, as well as Levaquin. I will follow up with the culture results. Code status has to be discussed with the family and/or brothers. Until then, she will be a full code. Rest of the management based on the clinical course. Job ID: [id number] MTDD
[2019-08-28 04:31] LABS: Anion Gap 15 mmol/L (10-20); BUN (Urea Nitrogen) 19 mg/dL (9.8-20.1); Calc. Creatinine Clearance 94 mL/min (70-130); Calcium 7.9 mg/dL (7.8-10.44); Carbon Dioxide 19 mmol/L (23-31); Chloride 107 mmol/L (98-107); Estimated GFR-MDRD 67; Glucose 172 mg/dL (83-110); Potassium 5.3 mmol/L (3.5-5.1); Sodium 136 mmol/L (136-145)
[2019-08-28] MEDS: Sodium Chloride 0.9% 1,000 ML IV SCH ×2 (04:41→13:57)
[2019-08-28] MEDS: Propofol 1,000 MG/100 ML VIAL IV PRN (04:42)
[2019-08-28 05:34] LABS: Band 30 % (5-11); Hemoglobin 8.9 g/dL (12.0-16.0); Lymphocytes 12 % (21-51); MDiff Complete? YES; Mean Corpuscular Hemoglobin 30.4 pg (27.0-31.0); Mean Platelet Volume 7.3 fL (7.4-10.4); Monocytes 3 % (0-10); Myelocyte 4 % (0-0); Neutrophil 51 % (42-75); Platelet Count 367 thou/uL (130-400); RBC Distribution Width 14.8 % (11.5-14.5); Red Blood Cell (RBC) Count 2.94 mill/uL (4.20-5.40); White Blood Cell (WBC) Count 12.5 thou/uL (4.8-10.8)
[2019-08-28] MEDS: Levothyroxine Sodium 75 MCG TAB PO SCH (05:42)
[2019-08-28] MEDS: methylPREDNISolone Sod Succ 40 MG VIAL IVP SCH ×3 (05:42→16:57)
[2019-08-28 06:43] LABS: Actual Bicarbonate (HCO3a) 25.4 mEq/L (22-28); Base Excess (BEa) -0.1 mEq/L (-2.0 to +3.0); Calcium, Ionized 1.11 mmol/L (1.12-1.30); Carboxyhemoglobin (COHb) 0.3 gm% (0.0-3.0); Hemoglobin (Hb) 11.4 g/dL (12.0-16.0); Potassium - ABG Lab 4.66 mmol/L (3.70-5.30); pH, Arterial 7.37 (7.35-7.45)
[2019-08-28 06:45] LABS: Puncture Site RRAD
[2019-08-28] MEDS ORDERED: FLU VACC TS2019-20(65YR UP)/PF 180 MCG/0.5 ML SYRINGE IM ONE (09:00)
[2019-08-28] MEDS ORDERED: Furosemide 20 MG TAB PO SCH (09:00)
--- NOTE | 2019-08-28 09:22 | PRG ---
DATE OF SERVICE: 08/28/2019 SUBJECTIVE: Noy Lara this morning remains intubated in the vent and sedated. We are going to withhold sedation to see whether she has waken up . I discussed with the son at length. He thinks they should make her DNR, but his other brothers and sisters have not decided to do comfort care. OBJECTIVE: VITAL SIGNS: Otherwise, this morning, pulse 54, respiratory rate is 10, saturations 90%, blood pressure 140/79. I's and O's positive. CHEST: Decreased breath sounds. Bilateral rhonchi. CARDIAC: Normal S1 and S2. No gallops. No masses. LABORATORY DATA: White count 12,000, H and H of 9 and 28, platelet count is normal. PO2 is 98, pCO2 is 45, pH 7.37. Renal function is improved. ASSESSMENT: Morbid obesity, pneumonia, bipolar schizophrenia, hypothyroidism. PLAN: We will start nutrition. Hold all sedation. Hopefully, we can try and wean her off in the next 12 to 48 hours. Continue steroids and PT. One-half hour of critical time. Job ID: [id number]
[2019-08-28] MEDS ORDERED: DC Sedation Protocol FS ONE (09:37)
--- NOTE | 2019-08-28 09:47 | RAD ---
PORTABLE CHEST: History: Respiratory distress. Comparison: Prior day's exam. FINDINGS: The endotracheal tube is in satisfactory position. It is difficult to see the tip of the NG tube on t his examination. It may just be within the distal esophagus. Heart size appears enlarged. Parenchymal lung changes are similar to the prior exam. IMPRESSION: Interval placement of an NG tube. It is difficult to see the tip of the NG tube on this examination b ut the tube appears to be within the distal esophagus. Repeat film is recommended as the technique ma y be causing this not to be visualized more distally. POS: [facility]
[2019-08-28] MEDS: Cefepime 2 GM in Sodium Chloride 0.9% 100 ML IVPB SCH ×2 (10:39→21:31)
[2019-08-28] MEDS: Famotidine/PF 20 mg/2ml Vial SLOW IVP SCH ×2 (10:39→21:31)
[2019-08-28] MEDS: Lisinopril 20 MG TAB PO SCH (10:40)
[2019-08-28] MEDS: Divalproex Sodium DR 500 MG TAB PO SCH ×2 (10:40→21:32)
--- NOTE | 2019-08-28 13:11 | PDOC.HOSPP ---
- Subjective Encounter Date: 08/28/19 Encounter Time: 12:30 - Objective Vital Signs & Weight: Vital Signs (12 hours) Temp Pulse Resp BP Pulse Ox 08/28/19 10:40 135/70 08/28/19 10:13 75 23 H 96 08/28/19 08:00 97.6 F 18 100 08/28/19 07:22 54 L 10 L 95 08/28/19 07:00 97.6 F 08/28/19 06:00 19 08/28/19 04:00 97.8 F 10 L 08/28/19 02:35 55 L 135/70 08/28/19 02:00 10 L Weight Weight 218 lb 4.122 oz Most Recent Monitor Data Heart Rate from ECG 80 NIBP 134/60 NIBP BP-Mean 84 Respiration from ECG 25 SpO2 97 I&O: 08/27/19 08/28/19 08/29/19 06:59 06:59 06:59 Intake Total 2757 157.1 Output Total 539 132 Balance 2218 25.1 Result Diagrams: 08/28/19 03:52 08/28/19 03:52 Hospitalist ROS - Medication Medications: Active Medications Generic Name Dose Route Start Last Admin Trade Name Freq PRN Reason Stop Dose Admin Albuterol/Ipratropium 3 ml 08/27/19 18:30 08/28/19 10:13 Duoneb NEB 3 ml [id number] TONY Administration Divalproex Sodium 750 mg 08/27/19 21:00 08/28/19 10:40 Depakote PO 750 mg BID TONY Administration Enoxaparin Sodium 40 mg 08/27/19 21:00 08/27/19 20:51 Lovenox SC 40 mg 2100 TONY Administration Famotidine 20 mg 08/27/19 21:00 08/28/19 10:39 Pepcid SLOW IVP 20 mg BID TONY Administration Cefepime HCl 2 gm/ Sodium 100 mls @ 200 mls/hr 08/27/19 21:00 08/28/19 10:39 Chloride IVPB 100 mls Q12HR TONY Administration Levofloxacin 750 mg/ Device 150 mls @ 100 mls/hr 08/27/19 13:00 08/27/19 13: 31 IVPB 150 mls Q24HR TONY Administration Sodium Chloride 1,000 mls @ 100 mls/hr 08/27/19 16:15 08/28/19 04:41 Normal Saline 0.9% IV 1,000 mls .Q10H TONY Administration Levothyroxine Sodium 75 mcg 08/28/19 06:00 08/28/19 05:42 Synthroid PO 75 mcg 0600 TONY Administration Lisinopril 20 mg 08/28/19 09:00 08/28/19 10:40 Zestril PO 20 mg DAILY TONY Administration Methylprednisolone Sodium Succinate 40 mg 08/27/19 18:00 08/28/19 12:04 Solu-Medrol IVP 40 mg Q6HR TONY Administration - Exam General Appearance: ill appearing General - other findings: sig right hand tremor ENT: normocephalic atraumatic Neck: supple, symmetric Heart: RRR, no murmur Respiratory: normal chest expansion, no tachypnea, rales Gastrointestinal: soft, normal bowel sounds Extremities: no cyanosis Neurological: cranial nerve grossly intact, no focal deficits Hosp A/P - Plan Sepsis 2/2 Comm acq pneumonia b/l multilobar pneumonia Acute resp failure, requiring intubation -s/p extubation -on IV steroid --taper off Hypothyroidism --on suppl't. Elevated BNP with nl cr --echo ordered -fw on that hyperkalemia, mild, 5.3 - as not going down, will give a dose of kayexalate -am K level Bipoloar d/o Schizophrenia. cw cefepime and LQ wait another 24hrs and if bernard cont'd to be neg., deescalate the abx today [facility] count slightly higher than y'day Full code.
[2019-08-28] MEDS: Enoxaparin Sodium 40 MG/0.4 ML SYRINGE SC SCH (21:33)
[2019-08-28] MEDS ORDERED: Racepinephrine 2.25% 0.5 ML NEB NEB SCH (22:45)
[2019-08-28 22:59] LABS: Actual Bicarbonate (HCO3a) 26.7 mEq/L (22-28); Base Excess (BEa) -4.9 mEq/L (-2.0 to +3.0); Calcium, Ionized 1.21 mmol/L (1.12-1.30); Carboxyhemoglobin (COHb) 0.5 gm% (0.0-3.0); Hemoglobin (Hb) 9.3 g/dL (12.0-16.0); O2 Tension (PaO2) 77.7 mmHg (> 70.0)
[2019-08-28 23:06] LABS: ALV-art Gradient 510.675 (0-20); CO2 Tension 99.7 mmHg (35.0-45.0); pH, Arterial 7.05 (7.35-7.45)
[2019-08-28] MEDS ORDERED: Midazolam HCl 2 mg/2 ml Vial ONE (23:07)
[2019-08-28] MEDS ORDERED: Propofol 1,000 MG/100 ML VIAL IV ONE (23:21)
[2019-08-28] MEDS ORDERED: DISCONTINUE PREVIOUS NARCOTIC PAIN MEDICATIONS AND BENZODIAZEPINES FS SCH (23:22)
[2019-08-28] MEDS ORDERED: Propofol BOLUS 1,000 MG/100 ML VIAL IV PRN (23:22)
[2019-08-28] MEDS ORDERED: Fentanyl BOLUS 250 ML IVPB PRN (23:22)
[2019-08-28] MEDS ORDERED: Ventilator Sedation Protocol 1 EACH FS ONE (23:32)
[2019-08-29] MEDS: fentaNYL Citrate/PF 2,000 MCG in Sodium Chloride 0.9% 60 ML IV SCH ×2 (00:11→16:55)
[2019-08-29] MEDS: methylPREDNISolone Sod Succ 40 MG VIAL IVP SCH ×4 (00:25→17:27)
[2019-08-29 01:10] LABS: Actual Bicarbonate (HCO3a) 26.8 mEq/L (22-28); Base Excess (BEa) 0.9 mEq/L (-2.0 to +3.0); Calcium, Ionized 1.12 mmol/L (1.12-1.30); Carboxyhemoglobin (COHb) 0.6 gm% (0.0-3.0); Hemoglobin (Hb) 8.3 g/dL (12.0-16.0); Potassium - ABG Lab 4.59 mmol/L (3.70-5.30); pH, Arterial 7.36 (7.35-7.45)
[2019-08-29 01:16] LABS: O2 Tension (PaO2) 56.5 mmHg (> 70.0)
[2019-08-29 01:17] LABS: Puncture Site RR
[2019-08-29 04:43] LABS: Anion Gap 17 mmol/L (10-20); BUN (Urea Nitrogen) 27 mg/dL (9.8-20.1); Calc. Creatinine Clearance 99 mL/min (70-130); Carbon Dioxide 21 mmol/L (23-31); Chloride 110 mmol/L (98-107); Estimated GFR-MDRD 71; Potassium 4.4 mmol/L (3.5-5.1); Sodium 144 mmol/L (136-145)
[2019-08-29 04:44] LABS: Calcium 7.9 mg/dL (7.8-10.44); Glucose 158 mg/dL (83-110)
[2019-08-29 06:05] LABS: Hemoglobin 8.1 g/dL (12.0-16.0); Mean Corpuscular Hemoglobin 29.8 pg (27.0-31.0); Mean Corpuscular Volume 95.9 fL (78.0-98.0); Mean Platelet Volume 7.9 fL (7.4-10.4); Platelet Count 384 thou/uL (130-400); RBC Distribution Width 14.9 % (11.5-14.5); Red Blood Cell (RBC) Count 2.73 mill/uL (4.20-5.40); White Blood Cell (WBC) Count 14.2 thou/uL (4.8-10.8)
[2019-08-29 06:14] LABS: Band 28 % (5-11); Lymphocytes 8 % (21-51); MDiff Complete? YES; Metamyelocyte 1 % (0-0); Monocytes 7 % (0-10); Myelocyte 6 % (0-0); Neutrophil 50 % (42-75); Nucleated RBC 1 % (0); Platelet Morphology Comment Appears Adequate; Polychromasia SLIGHT = 2-3 cells (100X) (0-2/hpf); Toxic Granulation SLIGHT
[2019-08-29] MEDS: Levothyroxine Sodium 75 MCG TAB PO SCH (06:40)
[2019-08-29] MEDS: Sodium Chloride 0.9% 1,000 ML IV SCH ×3 (06:40→17:27)
[2019-08-29 07:12] LABS: Actual Bicarbonate (HCO3a) 24.5 mEq/L (22-28); Base Excess (BEa) 0.2 mEq/L (-2.0 to +3.0); CO2 Tension 37.7 mmHg (35.0-45.0); Calcium, Ionized 1.12 mmol/L (1.12-1.30); Carboxyhemoglobin (COHb) 1.3 gm% (0.0-3.0); Hemoglobin (Hb) 8.4 g/dL (12.0-16.0); Potassium - ABG Lab 3.99 mmol/L (3.70-5.30); pH, Arterial 7.43 (7.35-7.45)
[2019-08-29 07:14] LABS: ALV-art Gradient 274.675 (0-20); Puncture Site RRAD
[2019-08-29] MEDS: Lisinopril 20 MG TAB PO SCH (09:36)
[2019-08-29] MEDS: Divalproex Sodium DR 500 MG TAB PO SCH ×2 (09:36→22:32)
[2019-08-29] MEDS: Cefepime 2 GM in Sodium Chloride 0.9% 100 ML IVPB SCH ×2 (09:37→22:28)
[2019-08-29] MEDS: Propofol 1,000 MG/100 ML VIAL IV PRN ×5 (09:37→23:42)
[2019-08-29] MEDS: Famotidine/PF 20 mg/2ml Vial SLOW IVP SCH ×2 (09:38→22:34)
--- NOTE | 2019-08-29 10:48 | RAD ---
FRONTAL RADIOGRAPH CHEST: 08/29/2019 HISTORY: Ventilated patient. COMPARISON: 08/28/2019 FINDINGS: Stable endotracheal tube and nasogastric tube. The distal aspect of the nasogastric tube overlies the cardiac silhouette, likely within a hiatal hernia. There is pulmonary vascular congestion with hazy increased bibasilar pleural and parenchymal opacity. No pneumothorax is seen. IMPRESSION: There is significant bibasilar pleural and parenchymal opacity, which has worsened when compared to 0 08/28/2019 and 08/27/2019. Findings suggest interval development of interstitial and alveolar pulmonar y edema. Aspiration or bibasilar infectious pneumonitis cannot be excluded. Followup to resolution ad vised. POS: [facility]
--- NOTE | 2019-08-29 11:44 | PDOC.HOSPP ---
- Subjective Subjective: Intubated. Sedated. - Objective Vital Signs & Weight: Vital Signs (12 hours) Temp Pulse Resp BP Pulse Ox 08/29/19 11:00 98.4 F 08/29/19 10:50 52 L 08/29/19 10:49 49 L 14 96 08/29/19 10:00 14 08/29/19 09:36 135/70 08/29/19 08:03 45 L 14 97 08/29/19 08:00 98.6 F 14 98 08/29/19 06:00 14 08/29/19 04:00 14 08/29/19 03:54 58 L 08/29/19 02:22 53 L 08/29/19 02:20 54 L 14 100 08/29/19 02:00 14 08/29/19 00:00 24 H 98 Weight Weight 218 lb 4.122 oz Most Recent Monitor Data Heart Rate from ECG 58 NIBP 165/80 NIBP BP-Mean 108 Respiration from ECG 8 SpO2 99 I&O: 08/28/19 08/29/19 08/30/19 06:59 06:59 06:59 Intake Total 2757 1477.1 Output Total 539 1007 165 Balance 2218 470.1 -165 Result Diagrams: 08/29/19 04:05 08/29/19 04:05 Radiology Reviewed by me: Yes Hospitalist ROS - Review of Systems ROS unobtainable: due to endotracheal tube - Medication Medications: Active Medications Generic Name Dose Route Start Last Admin Trade Name Freq PRN Reason Stop Dose Admin Albuterol/Ipratropium 3 ml 08/27/19 18:30 08/29/19 10:49 Duoneb NEB 3 ml [id number] TONY Administration Divalproex Sodium 750 mg 08/27/19 21:00 08/29/19 09:36 Depakote PO 750 mg BID TONY Administration Enoxaparin Sodium 40 mg 08/27/19 21:00 08/28/19 21:33 Lovenox SC 40 mg 2100 TONY Administration Famotidine 20 mg 08/27/19 21:00 08/29/19 09:38 Pepcid SLOW IVP 20 mg BID TONY Administration Cefepime HCl 2 gm/ Sodium 100 mls @ 200 mls/hr 08/27/19 21:00 08/29/19 09:37 Chloride IVPB 100 mls Q12HR TONY Administration Levofloxacin 750 mg/ Device 150 mls @ 100 mls/hr 08/27/19 13:00 08/28/19 13: 56 IVPB 150 mls Q24HR TONY Administration Sodium Chloride 1,000 mls @ 100 mls/hr 08/27/19 16:15 08/29/19 09:37 Normal Saline 0.9% IV 1,000 mls .Q10H TONY Administration Fentanyl Citrate 2,000 mcg/ 100 mls @ 0 mls/hr 08/28/19 23:22 08/29/19 00:11 Sodium Chloride IV 09/27/19 23:22 100 mls INF TONY Administration Protocol Per Protocol Levothyroxine Sodium 75 mcg 08/28/19 06:00 08/29/19 06:40 Synthroid PO 75 mcg 0600 TONY Administration Lisinopril 20 mg 08/28/19 09:00 08/29/19 09:36 Zestril PO 20 mg DAILY TONY Administration Methylprednisolone Sodium Succinate 40 mg 08/27/19 18:00 08/29/19 11:40 Solu-Medrol IVP 40 mg Q6HR TONY Administration Propofol 1,000 mg 08/28/19 23:22 08/29/19 09:37 Diprivan IV 09/27/19 23:22 1,000 mg INF PRN Administration TO ACHIEVE GOAL RASS Protocol - Exam General Appearance: NAD Eye: PERRL, anicteric sclera ENT: normocephalic atraumatic, moist mucosa Neck: supple, symmetric, no lymphadenopathy Heart: no murmur, no gallops, no rubs Respiratory: no rales, normal chest expansion, no tachypnea, rhonchi, wheezes Gastrointestinal: soft, non-tender, non-distended, no guarding, no rigidity Extremities: no edema Skin: no lesions, no rashes Neurological: no focal deficits Musculoskeletal: normal tone Psychiatric: not oriented Hosp A/P (1) PNA (pneumonia) Code(s): J18.9 - PNEUMONIA, UNSPECIFIED ORGANISM Status: Acute (2) Acute respiratory failure Code(s): J96.00 - ACUTE RESPIRATORY FAILURE, UNSP W HYPOXIA OR HYPERCAPNIA Status: Acute (3) Acute on chronic diastolic ACC/AHA stage C congestive heart failure Code(s): I50.33 - ACUTE ON CHRONIC DIASTOLIC (CONGESTIVE) HEART FAILURE Status : Acute (4) Anemia, normocytic normochromic Code(s): D64.9 - ANEMIA, UNSPECIFIED Status: Chronic (5) Hypertension Code(s): I10 - ESSENTIAL (PRIMARY) HYPERTENSION Status: Chronic (6) Obesity (BMI 30.0-34.9) Code(s): E66.9 - OBESITY, UNSPECIFIED Status: Chronic (7) Acute metabolic encephalopathy Code(s): G93.41 - METABOLIC ENCEPHALOPATHY Status: Resolved - Plan Plan: Intensive care unit ventilator management breathing trial when able antibiotics steroids BNP normal continue other home medications is able blood pressure control blood sugar control pain control/sedation G.I. prophylaxis DVT prophylaxis
[2019-08-29] MEDS: Lorazepam 2 MG/ML VIAL SLOW IVP PRN (15:29)
--- NOTE | 2019-08-29 18:51 | PRG ---
DATE OF SERVICE: 08/29/2019 SUBJECTIVE: Noy Lara remains mechanically ventilated. For some reason, my dictation from right around midnight of my critical care note and my intubation/bronchoscopy are not in the medical records/computer system. At this point in time, she is stable. OBJECTIVE: VITAL SIGNS: This afternoon, blood pressure 169/70, heart rates in the 50s, respiratory rates in the teens. LUNGS: Clear. HEART: Regular rhythm. ABDOMEN: Soft. EXTREMITIES: Without asymmetry. LABORATORY DATA: White count 14.2, hemoglobin 8.1, platelets 384. Sodium 144, potassium 4.4, chloride 110, bicarb 21, BUN 27, creatinine 0.79. PH 7.43, pCO2 is 37, pO2 is 106. DIAGNOSTIC DATA: Chest radiograph shows bilateral pneumonias. IMPRESSION AND PLAN: 1. Respiratory failure. 2. Probable sleep apnea. 3. Obesity. 4. Mental illness, schizophrenia, and bipolar reportedly. 5. Status post emergent intubation last night. She will be ventilated for several days, if not several weeks, given her size and severity of her clinical condition. There is no family available today when I rounded on her. CRITICAL CARE TIME: 30 minutes. Job ID: [id number]
[2019-08-29] MEDS: Enoxaparin Sodium 40 MG/0.4 ML SYRINGE SC SCH (22:33)
[2019-08-30] MEDS: methylPREDNISolone Sod Succ 40 MG VIAL IVP SCH ×4 (00:06→17:39)
[2019-08-30] MEDS: Propofol 1,000 MG/100 ML VIAL IV PRN ×3 (04:00→17:35)
[2019-08-30 04:38] LABS: Band 19 % (5-11); Hemoglobin 8.8 g/dL (12.0-16.0); Lymphocytes 8 % (21-51); MDiff Complete? YES; Mean Corpuscular HGB CONC 33.2 g/dL (32.0-36.0); Mean Corpuscular Hemoglobin 30.7 pg (27.0-31.0); Mean Corpuscular Volume 92.4 fL (78.0-98.0); Mean Platelet Volume 7.2 fL (7.4-10.4); Metamyelocyte 2 % (0-0); Monocytes 6 % (0-10); Myelocyte 8 % (0-0); Neutrophil 57 % (42-75); Platelet Count 475 thou/uL (130-400); Platelet Morphology Comment Appears Increased; Polychromasia SLIGHT = 2-3 cells (100X) (0-2/hpf); Red Blood Cell (RBC) Count 2.87 mill/uL (4.20-5.40); Toxic Granulation SLIGHT; White Blood Cell (WBC) Count 14.9 thou/uL (4.8-10.8)
[2019-08-30] MEDS: Levothyroxine Sodium 75 MCG TAB PO SCH (06:02)
[2019-08-30 06:53] LABS: Actual Bicarbonate (HCO3a) 21.9 mEq/L (22-28); CO2 Tension 29.6 mmHg (35.0-45.0); Calcium, Ionized 1.13 mmol/L (1.12-1.30); Carboxyhemoglobin (COHb) 1.3 gm% (0.0-3.0); Hemoglobin (Hb) 8.7 g/dL (12.0-16.0); Potassium - ABG Lab 3.52 mmol/L (3.70-5.30); pH, Arterial 7.49 (7.35-7.45)
[2019-08-30 06:59] LABS: Puncture Site RRAD
[2019-08-30] MEDS: Famotidine/PF 20 mg/2ml Vial SLOW IVP SCH ×2 (07:38→20:15)
[2019-08-30] MEDS: Cefepime 2 GM in Sodium Chloride 0.9% 100 ML IVPB SCH ×2 (07:39→20:16)
[2019-08-30] MEDS: Lisinopril 20 MG TAB PO SCH (07:39)
--- NOTE | 2019-08-30 09:29 | RAD ---
SEMIUPRIGHT FRONTAL CHEST RADIOGRAPH: 08/30/2019 HISTORY: Ventilated patient. COMPARISON: 08/29/2019 FINDINGS: Stable endotracheal tube and nasogastric tube. The distal tip of the endotracheal tube is probably wi thin 1.6 cm of the uzair. There is stable bilateral lower lobe air space disease with bilateral pleu ral effusions, not significantly changed. IMPRESSION: No significant interval change. POS: [facility]
--- NOTE | 2019-08-30 10:41 | PDOC.HOSPP ---
- Subjective Encounter Date: 08/30/19 Encounter Time: 10:30 Subjective: f/u for acute resp failure with bilat PNA on Cefepime/Levaquin and Solumedrol. [facility] Propofol. - Objective Vital Signs & Weight: Vital Signs (12 hours) Temp Pulse Resp Pulse Ox 08/30/19 08:30 58 L 14 08/30/19 08:00 10 L 08/30/19 07:00 98.4 F 08/30/19 02:36 54 L 08/30/19 02:35 57 L 14 94 L 08/30/19 00:32 61 08/30/19 00:00 98.2 F Weight Weight 231 lb 4.238 oz Most Recent Monitor Data Heart Rate from ECG 66 NIBP 158/73 NIBP BP-Mean 101 Respiration from ECG 10 SpO2 94 I&O: 08/29/19 08/30/19 08/31/19 06:59 06:59 06:59 Intake Total 1477.1 3314 Output Total 1007 836 125 Balance 470.1 2478 -125 Result Diagrams: 08/30/19 03:39 08/29/19 04:05 Additional Labs: Microbiology 08/27/19 10:24 Urine canela catheter Urine Culture - Final Escherichia coli 08/27/19 09:53 Nasal swab Influenza Types A,B Direct EIA - Final 08/28/19 02:32 Sputum Respiratory Culture - Preliminary 08/27/19 10:14 Venous blood - Right Hand Blood Culture - Preliminary NO GROWTH AT 48 HOURS 08/27/19 10:14 Venous blood - Right Arm Blood Culture - Preliminary NO GROWTH AT 48 HOURS Laboratory Tests 09/18/18 08/27/19 08/27/19 14:40 09:56 09:56 WBC 11.6 H Hgb 8.1 L Band Neuts % (Manual) 19 H Potassium 5.2 H B-Natriuretic Peptide 42.2 08/27/19 08/28/19 08/28/19 09:56 03:52 03:52 WBC 12.5 H Hgb 8.9 L Band Neuts % (Manual) 30 H Potassium 5.3 H B-Natriuretic Peptide 200.1 H 08/29/19 08/30/19 04:05 03:39 WBC 14.2 H Hgb 8.1 L Band Neuts % (Manual) 28 H 19 H Potassium B-Natriuretic Peptide Radiology Reviewed by me: Yes (PCXR - bibasilar infiltrates with effusions, ETT in place) EKG Reviewed by me: Yes (Tele - SR) Hospitalist ROS - Medication Medications: Active Medications Generic Name Dose Route Start Last Admin Trade Name Freq PRN Reason Stop Dose Admin Albuterol/Ipratropium 3 ml 08/27/19 18:30 08/30/19 08:30 Duoneb NEB 3 ml [id number] TONY Administration Enoxaparin Sodium 40 mg 08/27/19 21:00 08/29/19 22:33 Lovenox SC 40 mg 2100 TONY Administration Famotidine 20 mg 08/27/19 21:00 08/30/19 07:38 Pepcid SLOW IVP 20 mg BID TONY Administration Cefepime HCl 2 gm/ Sodium 100 mls @ 200 mls/hr 08/27/19 21:00 08/30/19 07:39 Chloride IVPB 100 mls Q12HR TONY Administration Levofloxacin 750 mg/ Device 150 mls @ 100 mls/hr 08/27/19 13:00 08/29/19 12: 02 IVPB 150 mls Q24HR TONY Administration Sodium Chloride 1,000 mls @ 100 mls/hr 08/27/19 16:15 08/29/19 17:27 Normal Saline 0.9% IV 1,000 mls .Q10H TONY Administration Fentanyl Citrate 2,000 mcg/ 100 mls @ 0 mls/hr 08/28/19 23:22 08/29/19 16:55 Sodium Chloride IV 09/27/19 23:22 100 mls INF TONY Administration Protocol Per Protocol Levothyroxine Sodium 75 mcg 08/28/19 06:00 08/30/19 06:02 Synthroid PO 75 mcg 0600 TONY Administration Lisinopril 20 mg 08/28/19 09:00 08/30/19 07:39 Zestril PO 20 mg DAILY TONY Administration Lorazepam 2 mg 08/28/19 23:22 08/29/19 15:29 Ativan SLOW IVP 09/27/19 23:22 2 mg Q1H PRN Administration Breakthrough agitation Methylprednisolone Sodium Succinate 40 mg 08/27/19 18:00 08/30/19 06:02 Solu-Medrol IVP 40 mg Q6HR TONY Administration Propofol 1,000 mg 08/28/19 23:22 08/30/19 07:38 Diprivan IV 09/27/19 23:22 1,000 mg INF PRN Administration TO ACHIEVE GOAL RASS Protocol - Exam General - other findings: sedate on mech vent ENT: normocephalic atraumatic, no oropharyngeal lesions ENT - other findings: ETT in place, NGT in L nares Neck: supple, symmetric, no JVD, no thyromegaly Heart: RRR, no murmur, no gallops, no rubs, normal peripheral pulses Respiratory - other findings: diminished in bases, few scattered rhonchi Gastrointestinal: soft, non-tender, non-distended, normal bowel sounds Extremities: no cyanosis Extremities - other findings: mild edema peripherally Skin: normal turgor, no lesions Psychiatric: somnolent Psychiatric - other findings: sedate on mech ventilation Hosp A/P (1) Acute hypercapnic respiratory failure Code(s): J96.02 - ACUTE RESPIRATORY FAILURE WITH HYPERCAPNIA Status: Acute Plan: Continue SIMV, not weanable currently, FIO2 50% (2) PNA (pneumonia) Code(s): J18.9 - PNEUMONIA, UNSPECIFIED ORGANISM Status: Acute Plan: Suspected with bilateral infiltrates, likely gm + cocci, continue Cefepime/ Levaquin (3) UTI (urinary tract infection) Status: Acute Plan: E.coli isolated, continue Cefepime given sensitivities on cx (4) Acute on chronic diastolic ACC/AHA stage C congestive heart failure Code(s): I50.33 - ACUTE ON CHRONIC DIASTOLIC (CONGESTIVE) HEART FAILURE Status : Acute (5) Obesity (BMI 30.0-34.9) Code(s): E66.9 - OBESITY, UNSPECIFIED Status: Chronic (6) Schizophrenia Code(s): F20.9 - SCHIZOPHRENIA, UNSPECIFIED Status: Chronic Plan: Continue Zyprexa daily - Plan continue antibiotics, respiratory therapy, DVT proph w/SCDs Continue critical support with SIMV Sedation with Propofol Continue Cefepime/Levaquin Continue Solumedrol IV AM lab: BMP, CBC, ABG PCXR in am
[2019-08-30] MEDS: Sodium Chloride 0.9% 1,000 ML IV SCH (10:46)
[2019-08-30] MEDS: Divalproex Sodium 125 mg Sprinkle Capsule PO SCH ×2 (10:47→20:15)
[2019-08-30] MEDS: Divalproex Sodium DR 500 MG TAB PO SCH (10:47)
[2019-08-30] MEDS: Lorazepam 2 MG/ML VIAL SLOW IVP PRN (11:17)
[2019-08-30] MEDS ORDERED: Sodium Bicarbonate Tab 325 MG TAB PER TUBE PRN (12:08)
--- NOTE | 2019-08-30 16:16 | OP ---
DATE OF PROCEDURE: 08/28/2019 INDICATIONS FOR PROCEDURE: Ms. Lara was noted to have progressive respiratory distress throughout the day. BiPAP did not help. Racemic epinephrine did not help for what was felt to be stridor. Blood gas showed a severe respiratory acidosis with a pH of 7.05, CO2 of 99, PO2 of 77. DESCRIPTION OF OPERATION: Elected to reintubate her. A bronchoscope was brought to the bedside. We were able to place a bite block in her mouth. She was obtunded. The scope was passed in her posterior pharyngeal space. She did have some mild vocal cord edema. I was able to pass the scope through her cords and intubate her with a 7.5 tube. The tube was above the uzair at 23 cm. Clear secretions were suctioned out of her throat and her tracheobronchial tree. The remainder of her exam was unremarkable. She has been connected to mechanical ventilation. She is currently being sedated. This is a 45-minute critical care note, independent of procedure. Job ID: [id number]
--- NOTE | 2019-08-30 17:27 | PRG ---
DATE OF SERVICE: 08/30/2019 SUBJECTIVE: Ms. Lara remains mechanically ventilated. OBJECTIVE: VITAL SIGNS: She is afebrile. Respiratory rates in the teens. FiO2 is at 40%. Heart rate in the 60s, blood pressure 116/77. LUNGS: Remarkable for coarse equal breath sounds. HEART: Regular rhythm. ABDOMEN: Soft and nontender. EXTREMITIES: Without asymmetry or edema. Chest radiograph is reviewed and is unchanged. She still has patchy lower lobe infiltrates. LABORATORY DATA: White count 14.9, hemoglobin 8.8, platelets 475. There were no electrolytes today. Renal function was normal yesterday. IMPRESSION: 1. Respiratory failure. 2. Pneumonia. 3. Probable obesity hypoventilation. 4. Bipolar illness with schizophrenia reportedly. 5. She was emergently intubated just before midnight Saturday night and probably need to continue to be mechanically ventilated for several days unless some dramatic improvement. Critical care time is 35 minutes. Job ID: [id number] MTDD
[2019-08-30] MEDS: fentaNYL Citrate/PF 2,000 MCG in Sodium Chloride 0.9% 60 ML IV SCH (18:07)
[2019-08-30] MEDS: Enoxaparin Sodium 40 MG/0.4 ML SYRINGE SC SCH (20:15)
[2019-08-31] MEDS: methylPREDNISolone Sod Succ 40 MG VIAL IVP SCH ×4 (00:10→20:06)
[2019-08-31] MEDS: Sodium Chloride 0.9% 1,000 ML IV SCH ×3 (00:56→15:49)
[2019-08-31 04:42] LABS: Anion Gap 13 mmol/L (10-20); BUN (Urea Nitrogen) 30 mg/dL (9.8-20.1); Calc. Creatinine Clearance 98 mL/min (70-130); Carbon Dioxide 21 mmol/L (23-31); Chloride 109 mmol/L (98-107); Estimated GFR-MDRD 66; Glucose 167 mg/dL (83-110); Sodium 139 mmol/L (136-145)
[2019-08-31 05:36] LABS: Hemoglobin 8.7 g/dL (12.0-16.0); Mean Corpuscular HGB CONC 31.4 g/dL (32.0-36.0); Mean Corpuscular Hemoglobin 29.4 pg (27.0-31.0); Mean Corpuscular Volume 93.7 fL (78.0-98.0); Mean Platelet Volume 7.5 fL (7.4-10.4); Platelet Count 469 thou/uL (130-400); RBC Distribution Width 15.4 % (11.5-14.5); Red Blood Cell (RBC) Count 2.96 mill/uL (4.20-5.40)
[2019-08-31 05:55] LABS: Band 19 % (5-11); Lymphocytes 2 % (21-51); MDiff Complete? YES; Metamyelocyte 5 % (0-0); Myelocyte 20 % (0-0); Neutrophil 54 % (42-75); Platelet Morphology Comment Appears Increased
[2019-08-31] MEDS: Levothyroxine Sodium 75 MCG TAB PO SCH (06:18)
[2019-08-31 07:13] LABS: Actual Bicarbonate (HCO3a) 24.1 mEq/L (22-28); Base Excess (BEa) -0.8 mEq/L (-2.0 to +3.0); CO2 Tension 40.9 mmHg (35.0-45.0); Calcium, Ionized 1.15 mmol/L (1.12-1.30); Carboxyhemoglobin (COHb) 0.7 gm% (0.0-3.0); Hemoglobin (Hb) 8.8 g/dL (12.0-16.0); O2 Tension (PaO2) 91.7 mmHg (> 70.0); pH, Arterial 7.39 (7.35-7.45)
[2019-08-31 07:24] LABS: ALV-art Gradient 142.375 (0-20); Puncture Site L.R.
[2019-08-31] MEDS: Lisinopril 20 MG TAB PO SCH (08:46)
[2019-08-31] MEDS: Famotidine/PF 20 mg/2ml Vial SLOW IVP SCH ×2 (08:46→20:06)
[2019-08-31] MEDS: Propofol 1,000 MG/100 ML VIAL IV PRN ×2 (08:46→15:28)
[2019-08-31] MEDS: Cefepime 2 GM in Sodium Chloride 0.9% 100 ML IVPB SCH ×2 (09:05→20:05)
--- NOTE | 2019-08-31 09:16 | PRG ---
DATE OF SERVICE: 08/31/2019 SUBJECTIVE: This morning, she is intubated, vented and sedated. She was re-intubated with progressive respiratory failure. Now, x-ray shows bilateral diffuse infiltrates which is new. OBJECTIVE: VITAL SIGNS: Blood pressure 175/87, pulse 80, respiratory rate 18, sats afebrile. CHEST: Decreased breath sounds. No wheezing. CARDIAC: Normal S1 and S2. No gallops. ABDOMEN: Soft, massive. EXTREMITIES: Trace edema. LABORATORY DATA: White count 14,000, H and H 8 and 27, platelet count 469. PO2 is 91, pCO2 Lytes are normal. IMPRESSION: Respiratory failure, pneumonia, bipolar, severe deconditioning, severe hypothyroidism. PLAN: Start nutrition, PT. We will discuss with family on day care. Trach/PEG versus comfort care. One-half hour of critical time. Job ID: [id number]
[2019-08-31] MEDS: Divalproex Sodium 125 mg Sprinkle Capsule PO SCH ×2 (09:56→21:26)
[2019-08-31] MEDS: Furosemide 40 MG/4 ML VIAL SLOW IVP SCH (09:56)
--- NOTE | 2019-08-31 09:57 | RAD ---
AP CHEST: HISTORY: Ventilator. CCU followup. COMPARISON: 08/30/2019. FINDINGS: ET tube and NG tube remain in place. Bilateral perihilar infiltrates. Bilateral effusions and bibasilar atelectasis. IMPRESSION: No significant interval change. POS: [facility]
[2019-08-31] MEDS: hydrALAZINE 20 MG/ML VIAL SLOW IVP PRN (15:31)
[2019-08-31] MEDS: Lorazepam 2 MG/ML VIAL SLOW IVP PRN (16:12)
--- NOTE | 2019-08-31 17:57 | PDOC.HOSPP ---
- Subjective Encounter Date: 08/31/19 Encounter Time: 17:15 Subjective: [facility] not [facility] currently. BP trending upward per nursing. - Objective Vital Signs & Weight: Vital Signs (12 hours) Temp Pulse Resp BP Pulse Ox 08/31/19 16:00 16 08/31/19 15:31 79 185/94 H 08/31/19 14:49 65 192/94 H 08/31/19 14:47 62 10 L 99 08/31/19 14:00 13 08/31/19 12:00 10 L 08/31/19 10:57 76 10 L 188/85 H 99 08/31/19 10:00 10 L 08/31/19 08:46 175/89 H 08/31/19 08:00 13 08/31/19 07:50 99 08/31/19 07:00 98.5 F 08/31/19 06:33 68 175/89 H 08/31/19 06:31 68 17 100 08/31/19 06:00 14 Weight Admit Weight 218 lb Weight 231 lb 4.238 oz Most Recent Monitor Data Heart Rate from ECG 86 NIBP 158/65 NIBP BP-Mean 96 Respiration from ECG 24 SpO2 95 I&O: 08/30/19 08/31/19 09/01/19 06:59 06:59 06:59 Intake Total 3314 3141.1 2198.1 Output Total 836 1080 2090 Balance 2478 2061.1 108.1 Result Diagrams: 08/31/19 03:36 08/31/19 03:55 Radiology Reviewed by me: Yes (PCXR - bilat pulm edema/infiltrates) EKG Reviewed by me: Yes (Tele - SR) Hospitalist ROS - Medication Medications: Active Medications Generic Name Dose Route Start Last Admin Trade Name Freq PRN Reason Stop Dose Admin Albuterol/Ipratropium 3 ml 08/27/19 18:30 08/31/19 14:47 Duoneb NEB 3 ml [id number] TONY Administration Divalproex Sodium 750 mg 08/30/19 21:00 08/31/19 09:56 Depakote Sprinkle PO 750 mg BID TONY Administration Enoxaparin Sodium 40 mg 08/27/19 21:00 08/30/19 20:15 Lovenox SC 40 mg 2100 TONY Administration Famotidine 20 mg 02/13/20 21:00 08/31/19 08:46 Pepcid SLOW IVP 20 mg BID TONY Administration Furosemide 40 mg 08/31/19 09:00 08/31/19 09:56 Lasix SLOW IVP 40 mg DAILY TONY Administration Hydralazine HCl 20 mg 08/31/19 14:23 08/31/19 15:31 Apresoline SLOW IVP 20 mg Q4H PRN Administration SBP >170 Cefepime HCl 2 gm/ Sodium 100 mls @ 200 mls/hr 08/27/19 21:00 08/31/19 09:05 Chloride IVPB 100 mls Q12HR TONY Administration Levofloxacin 750 mg/ Device 150 mls @ 100 mls/hr 08/27/19 13:00 08/31/19 15: 29 IVPB 150 mls Q24HR TONY Administration Sodium Chloride 1,000 mls @ 100 mls/hr 08/27/19 16:15 08/31/19 15:49 Normal Saline 0.9% IV Not Given .Q10H TONY Fentanyl Citrate 2,000 mcg/ 100 mls @ 0 mls/hr 08/28/19 23:22 08/30/19 18:07 Sodium Chloride IV 09/27/19 23:22 100 mls INF TONY Administration Protocol Per Protocol Levothyroxine Sodium 75 mcg 08/28/19 06:00 08/31/19 06:18 Synthroid PO 75 mcg 0600 TONY Administration Lisinopril 20 mg 08/28/19 09:00 08/31/19 08:46 Zestril PO 20 mg DAILY TONY Administration Lorazepam 2 mg 08/28/19 23:22 08/31/19 16:12 Ativan SLOW IVP 09/27/19 23:22 2 mg Q1H PRN Administration Breakthrough agitation Methylprednisolone Sodium Succinate 40 mg 08/31/19 09:00 08/31/19 09:56 Solu-Medrol IVP 40 mg BID TONY Administration Propofol 1,000 mg 08/28/19 23:22 08/31/19 15:28 Diprivan IV 09/27/19 23:22 1,000 mg INF PRN Administration TO ACHIEVE GOAL RASS Protocol Sodium Bicarbonate 650 mg 08/30/19 12:08 08/30/19 12:14 Bicarbonate, Sodium PER TUBE 650 mg PRN PRN Administration TUBE OCCLUSION TX Sodium Chloride 10 ml 08/30/19 21:00 08/31/19 09:57 Flush - Normal Saline IVF 10 ml Q12HR TONY Administration - Exam General - other findings: sedate on mech vent ENT: normocephalic atraumatic, no oropharyngeal lesions ENT - other findings: ETT in place Neck: supple, symmetric Heart: RRR, no gallops, no rubs, normal peripheral pulses Respiratory - other findings: diminished in bases bilat Gastrointestinal: soft, non-tender, non-distended, normal bowel sounds Gastrointestinal - other findings: obese Extremities: no cyanosis, 1+ LE edema Skin: normal turgor Neurological - other findings: sedate on mech vent Psychiatric: somnolent, lethargic Hosp A/P (1) Acute hypercapnic respiratory failure Code(s): J96.02 - ACUTE RESPIRATORY FAILURE WITH HYPERCAPNIA Status: Acute Plan: Continue SIMV, not weanable currently (2) PNA (pneumonia) Code(s): J18.9 - PNEUMONIA, UNSPECIFIED ORGANISM Status: Acute Plan: Continue Cefepime/Levaquin, pulm support, mech ventilation (3) UTI (urinary tract infection) Status: Acute Plan: E. coli spp, continue Cefepime IV (4) Acute on chronic diastolic ACC/AHA stage C congestive heart failure Code(s): I50.33 - ACUTE ON CHRONIC DIASTOLIC (CONGESTIVE) HEART FAILURE Status : Acute Plan: Lasix 20mg IV BID, serial I/O's, daily weight (5) Obesity (BMI 30.0-34.9) Code(s): E66.9 - OBESITY, UNSPECIFIED Status: Chronic (6) Schizophrenia Code(s): F20.9 - SCHIZOPHRENIA, UNSPECIFIED Status: Chronic - Plan continue antibiotics, social services analyst, respiratory therapy, DVT proph w/SCDs Continue critical support with SIMV Sedation with Propofol Continue Cefepime/Levaquin Continue Solumedrol IV Lasix 40mg IV daily AM lab: BMP, CBC, ABG PCXR in am
[2019-08-31] MEDS: Enoxaparin Sodium 40 MG/0.4 ML SYRINGE SC SCH (20:06)
[2019-08-31] MEDS: fentaNYL Citrate/PF 2,000 MCG in Sodium Chloride 0.9% 60 ML IV SCH (20:07)
[2019-09-01] MEDS: Propofol 1,000 MG/100 ML VIAL IV PRN ×4 (00:16→20:07)
[2019-09-01] MEDS: Sodium Chloride 0.9% 1,000 ML IV SCH ×2 (01:40→13:13)
[2019-09-01 05:25] LABS: Anisocytosis SLIGHT = 6-15 cells (100X) (0-5/hpf); Band 19 % (5-11); Hemoglobin 8.8 g/dL (12.0-16.0); Lymphocytes 8 % (21-51); MDiff Complete? YES; Mean Corpuscular HGB CONC 32.1 g/dL (32.0-36.0); Mean Corpuscular Hemoglobin 29.8 pg (27.0-31.0); Mean Platelet Volume 7.3 fL (7.4-10.4); Metamyelocyte 1 % (0-0); Monocytes 1 % (0-10); Myelocyte 10 % (0-0); Neutrophil 61 % (42-75); Platelet Count 421 thou/uL (130-400); RBC Distribution Width 15.4 % (11.5-14.5); Red Blood Cell (RBC) Count 2.93 mill/uL (4.20-5.40); White Blood Cell (WBC) Count 14.2 thou/uL (4.8-10.8)
[2019-09-01] MEDS: Levothyroxine Sodium 75 MCG TAB PO SCH (05:29)
[2019-09-01 06:55] LABS: Actual Bicarbonate (HCO3a) 23.3 mEq/L (22-28); Base Excess (BEa) -2.2 mEq/L (-2.0 to +3.0); CO2 Tension 42.8 mmHg (35.0-45.0); Calcium, Ionized 1.18 mmol/L (1.12-1.30); Carboxyhemoglobin (COHb) 0.4 gm% (0.0-3.0); Potassium - ABG Lab 4.09 mmol/L (3.70-5.30); pH, Arterial 7.35 (7.35-7.45)
[2019-09-01 06:56] LABS: Puncture Site RRA
--- NOTE | 2019-09-01 08:50 | PRG ---
DATE OF SERVICE: 09/01/2019 SUBJECTIVE: This morning, the patient remains in the ICU on the vent, still is very agitated, biting the ET tube in spite of being on sedation. We started pretty much on her home medication. X-ray shows improvement in the bilateral pleural effusion. OBJECTIVE: VITAL SIGNS: Temperature 97, pulse 80, blood pressure 140/69, respirations 18. CHEST: Decreased breath sounds. No wheezing. CARDIAC: Normal S1 and S2. No gallops. ABDOMEN: No masses. LABORATORY DATA: White count 14,000, H and H 8 and 27, and platelet count is normal. PO2 is 108, pCO2 of 42, pH 7.35, on 40% of FiO2, rate of 10. X-ray showed improvement in the pleural effusion. IMPRESSION: Respiratory failure, morbid obesity, baseline underlying bipolar disorder, probably sleep apnea. PLAN: She is still not weanable. Hopefully, if encephalopathy improves, we will then able to wean. In the meantime, nutrition, PT. One-half hour of critical time. We will follow. Job ID: [id number]
[2019-09-01] MEDS ORDERED: Furosemide 40 MG TAB PO SCH (09:15)
[2019-09-01] MEDS: Famotidine 20 MG TAB PO SCH ×2 (09:51→20:07)
[2019-09-01] MEDS: Cefepime 2 GM in Sodium Chloride 0.9% 100 ML IVPB SCH ×2 (09:51→20:07)
[2019-09-01] MEDS: methylPREDNISolone Sod Succ 40 MG VIAL IVP SCH ×2 (09:51→20:07)
[2019-09-01] MEDS: Lisinopril 20 MG TAB PO SCH (09:52)
[2019-09-01] MEDS: Divalproex Sodium 125 mg Sprinkle Capsule PO SCH ×2 (09:53→20:06)
--- NOTE | 2019-09-01 10:26 | RAD ---
PORTABLE CHEST: Date: 09/01/2019 INDICATION: Ventilator and CCU follow-up. COMPARISON: 08/31/2019. FINDINGS/IMPRESSION: ET tube and NG tube are unchanged. Bilateral effusions and bibasilar atelectasis again noted. Perihil ar congestive changes appear improved. No other interval change. POS: [facility]
[2019-09-01] MEDS: Famotidine/PF 20 mg/2ml Vial SLOW IVP SCH (10:34)
[2019-09-01] MEDS: Furosemide 40 MG/4 ML VIAL SLOW IVP SCH (10:37)
[2019-09-01] MEDS: OLANZapine 5 MG TAB PO SCH ×4 (17:06→20:34)
[2019-09-01] MEDS: hydrALAZINE 20 MG/ML VIAL SLOW IVP PRN (17:07)
--- NOTE | 2019-09-01 18:16 | PDOC.HOSPP ---
- Subjective Encounter Date: 09/01/19 Encounter Time: 18:00 Subjective: f/u for resp failure on mech vent and unweanable currently. Intermittent agitation noted. - Objective Vital Signs & Weight: Vital Signs (12 hours) Temp Pulse Pulse Pulse Resp BP BP 09/01/19 18:00 21 H 09/01/19 17:07 87 183/72 H 09/01/19 16:00 98.9 F 22 H 09/01/19 15:00 98.9 F 09/01/19 14:57 87 09/01/19 14:56 88 09/01/19 14:00 12 09/01/19 12:40 96 09/01/19 12:00 19 09/01/19 11:34 91 90 160/67 H 09/01/19 10:30 87 09/01/19 10:00 21 H 09/01/19 09:52 145/67 H 09/01/19 08:00 19 09/01/19 07:44 09/01/19 07:00 97.9 F 09/01/19 06:43 70 BP Pulse Ox Pulse Ox Pulse Ox 09/01/19 18:00 09/01/19 17:07 09/01/19 16:00 09/01/19 15:00 09/01/19 14:57 09/01/19 14:56 09/01/19 14:00 09/01/19 12:40 09/01/19 12:00 09/01/19 11:34 155/75 H 97 95 09/01/19 10:30 09/01/19 10:00 09/01/19 09:52 09/01/19 08:00 09/01/19 07:44 98 09/01/19 07:00 09/01/19 06:43 Weight Admit Weight 218 lb Weight 231 lb 4.238 oz Most Recent Monitor Data Heart Rate from ECG 99 NIBP 124/48 NIBP BP-Mean 73 Respiration from ECG 0 SpO2 93 I&O: 08/31/19 09/01/19 09/02/19 06:59 06:59 06:59 Intake Total 3141.1 4196.2 1177 Output Total 1080 3110 2235 Balance 2061.1 1086.2 -2392 Result Diagrams: 09/01/19 03:30 02/17/20 03:55 Radiology Reviewed by me: Yes (PCXR - perihilar edema improved, lines/tubes in appropriate position) EKG Reviewed by me: Yes (Tele - SR) Hospitalist ROS - Medication Medications: Active Medications Generic Name Dose Route Start Last Admin Trade Name Freq PRN Reason Stop Dose Admin Albuterol/Ipratropium 3 ml 08/27/19 18:30 09/01/19 14:56 Duoneb NEB 3 ml [id number] TONY Administration Divalproex Sodium 750 mg 08/30/19 21:00 09/01/19 09:53 Depakote Sprinkle PO 750 mg BID TONY Administration Enoxaparin Sodium 40 mg 08/27/19 21:00 08/31/19 20:06 Lovenox SC 40 mg 2100 TONY Administration Famotidine 20 mg 09/01/19 09:00 09/01/19 09:51 Pepcid PO 20 mg BID TONY Administration Hydralazine HCl 20 mg 08/31/19 14:23 09/01/19 17:07 Apresoline SLOW IVP 20 mg Q4H PRN Administration SBP >170 Cefepime HCl 2 gm/ Sodium 100 mls @ 200 mls/hr 08/27/19 21:00 09/01/19 09:51 Chloride IVPB 100 mls Q12HR TONY Administration Levofloxacin 750 mg/ Device 150 mls @ 100 mls/hr 08/27/19 13:00 09/01/19 13: 12 IVPB 150 mls Q24HR TONY Administration Sodium Chloride 1,000 mls @ 0 mls/hr 08/27/19 16:15 09/01/19 13:13 Normal Saline 0.9% IV Not Given .Q0M TONY KVO Fentanyl Citrate 2,000 mcg/ 100 mls @ 0 mls/hr 08/28/19 23:22 08/31/19 20:07 Sodium Chloride IV 09/27/19 23:22 100 mls INF TONY Administration Protocol Per Protocol Levothyroxine Sodium 75 mcg 08/28/19 06:00 09/01/19 05:29 Synthroid PO 75 mcg 0600 TONY Administration Lisinopril 20 mg 08/28/19 09:00 09/01/19 09:52 Zestril PO 20 mg DAILY TONY Administration Lorazepam 2 mg 08/28/19 23:22 08/31/19 16:12 Ativan SLOW IVP 09/27/19 23:22 2 mg Q1H PRN Administration Breakthrough agitation Methylprednisolone Sodium Succinate 40 mg 08/31/19 09:00 09/01/19 09:51 Solu-Medrol IVP 40 mg BID TONY Administration Olanzapine 25 mg 08/27/19 21:00 09/01/19 17:07 Zyprexa PO Not Given HS TONY Propofol 1,000 mg 08/28/19 23:22 09/01/19 17:55 Diprivan IV 09/27/19 23:22 1,000 mg INF PRN Administration TO ACHIEVE GOAL RASS Protocol Sodium Bicarbonate 650 mg 08/30/19 12:08 08/30/19 12:14 Bicarbonate, Sodium PER TUBE 650 mg PRN PRN Administration TUBE OCCLUSION TX Sodium Chloride 10 ml 08/30/19 21:00 09/01/19 10:20 Flush - Normal Saline IVF Not Given Q12HR TONY - Exam General - other findings: sedate on mech ventilation ENT: normocephalic atraumatic, no oropharyngeal lesions Neck: supple, symmetric, no JVD, no thyromegaly Heart: RRR, no gallops, no rubs, normal peripheral pulses Respiratory - other findings: diminished bilat, basilar rhonchi Gastrointestinal: soft, non-tender, non-distended, normal bowel sounds Gastrointestinal - other findings: obese Extremities: 2+ LE edema Skin: normal turgor, no lesions Musculoskeletal: generalized weakness Psychiatric: somnolent, lethargic Hosp A/P (1) Acute hypercapnic respiratory failure Code(s): J96.02 - ACUTE RESPIRATORY FAILURE WITH HYPERCAPNIA Status: Acute Plan: Continue SIMV, not weanable currently, ? shelter mgmt with trach vs palliative measures (2) PNA (pneumonia) Code(s): J18.9 - PNEUMONIA, UNSPECIFIED ORGANISM Status: Acute Plan: Continue Cefepime/Levaquin/Solumedrol (3) UTI (urinary tract infection) Status: Acute (4) Acute on chronic diastolic ACC/AHA stage C congestive heart failure Code(s): I50.33 - ACUTE ON CHRONIC DIASTOLIC (CONGESTIVE) HEART FAILURE Status : Acute Plan: Continue Lasix 40mg daily (5) Obesity (BMI 30.0-34.9) Code(s): E66.9 - OBESITY, UNSPECIFIED Status: Chronic (6) Schizophrenia Code(s): F20.9 - SCHIZOPHRENIA, UNSPECIFIED Status: Chronic - Plan continue antibiotics, social professionals, respiratory therapy, DVT proph w/SCDs Continue critical support with SIMV Sedation with Propofol Continue Cefepime/Levaquin Continue Solumedrol IV Lasix 40mg IV daily AM lab: CBC, ABG PCXR in am
[2019-09-01] MEDS: traZODone HCl 50 MG TAB PO SCH (20:07)
[2019-09-01] MEDS: Enoxaparin Sodium 40 MG/0.4 ML SYRINGE SC SCH (20:07)
[2019-09-01] MEDS ORDERED: Famotidine 20 MG TAB PO SCH (21:00)
[2019-09-01] MEDS: Budesonide 0.5 MG/2 ML NEB NEB SCH (22:34)
[2019-09-02 04:42] LABS: Band 11 % (5-11); Hemoglobin 8.6 g/dL (12.0-16.0); Lymphocytes 7 % (21-51); MDiff Complete? YES; Mean Corpuscular HGB CONC 32.7 g/dL (32.0-36.0); Mean Corpuscular Hemoglobin 30.4 pg (27.0-31.0); Mean Corpuscular Volume 92.9 fL (78.0-98.0); Mean Platelet Volume 7.5 fL (7.4-10.4); Metamyelocyte 2 % (0-0); Monocytes 2 % (0-10); Myelocyte 8 % (0-0); Neutrophil 70 % (42-75); Nucleated RBC 1 % (0); Platelet Count 402 thou/uL (130-400); RBC Distribution Width 15.9 % (11.5-14.5); Red Blood Cell (RBC) Count 2.81 mill/uL (4.20-5.40)
[2019-09-02] MEDS: Levothyroxine Sodium 75 MCG TAB PO SCH (04:49)
[2019-09-02] MEDS: Budesonide 0.5 MG/2 ML NEB NEB SCH ×2 (06:55→18:23)
[2019-09-02 07:19] LABS: Actual Bicarbonate (HCO3a) 25.7 mEq/L (22-28); Base Excess (BEa) 1.4 mEq/L (-2.0 to +3.0); CO2 Tension 39.1 mmHg (35.0-45.0); Calcium, Ionized 1.17 mmol/L (1.12-1.30); Carboxyhemoglobin (COHb) 0.7 gm% (0.0-3.0); Hemoglobin (Hb) 8.6 g/dL (12.0-16.0); O2 Tension (PaO2) 91.3 mmHg (> 70.0); Potassium - ABG Lab 3.69 mmol/L (3.70-5.30); pH, Arterial 7.44 (7.35-7.45)
[2019-09-02 08:04] LABS: ALV-art Gradient 73.725 (0-20); Puncture Site L.R.
--- NOTE | 2019-09-02 08:14 | RAD ---
EXAM: CHEST ONE VIEW HISTORY: On ventilator. Follow-up evaluation. COMPARISON: 09/01/2019 FINDINGS: Endotracheal tube and nasogastric tubes remain in place. Bilateral pleural effusions are again seen g reater on the left. Pleural fluid on the left does appear mildly increased from prior study, but this may be related to positioning. Cardiac silhouette is stable in size. Prominent vasculature is mi ldly increased. No other interval change. IMPRESSION: Persistent bilateral pleural effusions and associated atelectasis greater on the left. Left pleural e ffusion does appear mildly increased from prior exam.
[2019-09-02] MEDS: Famotidine 20 MG TAB PO SCH ×2 (08:29→22:34)
[2019-09-02] MEDS: Lisinopril 20 MG TAB PO SCH (08:30)
[2019-09-02] MEDS: methylPREDNISolone Sod Succ 40 MG VIAL IVP SCH ×2 (08:30→22:30)
[2019-09-02] MEDS: Furosemide 40 MG TAB PO SCH (08:30)
[2019-09-02] MEDS: Cefepime 2 GM in Sodium Chloride 0.9% 100 ML IVPB SCH ×2 (08:31→22:27)
[2019-09-02] MEDS: Divalproex Sodium 125 mg Sprinkle Capsule PO SCH ×2 (08:55→22:39)
--- NOTE | 2019-09-02 09:23 | PRG ---
DATE OF SERVICE: 09/02/2019 SUBJECTIVE: Noy Lara is a 74-year-old female, remains intubated in the vent. She is very encephalopathic, according to the nursing staff, the minimal decrease in sedation caused her to become bradycardic, dropping her blood pressure. She is now on Diprivan. OBJECTIVE: VITAL SIGNS: Pulse 72, blood pressure 140/66, saturations 97%, respirations 16. I and O is ahead. CHEST: Bilateral rhonchi and crackles. CARDIAC: Normal S1 and S2. No gallops. ABDOMEN: No masses. LABORATORY DATA: White count 16,000, H and H 8 and 26, platelet count is 42. PO2 is 91, pCO2 is 39, pH 7.44, 30%, rate 8. Chest x-ray showed bilateral effusion. IMPRESSION: 1. Respiratory failure, morbid obesity, sleep apnea. 2. Bilateral pleural effusion. 3. Baseline bipolar. 4. Discussed with family members multiple times. They are unwilling to make any decision. Palliative care is involved extensively. The patient is sedated and on the vent. 5. If she is not weanable, she may need trach and a PEG long-term placement. 6. Once again today we are going to make a meaningful attempt to talk to the family members. 7. Can make long-term decision. PLAN: Otherwise, we will continue steroids, neb treatment, antibiotics. CRITICAL CARE TIME: One-half hour. Job ID: [id number] MTDD
[2019-09-02] MEDS: Propofol 1,000 MG/100 ML VIAL IV PRN ×2 (11:00→18:32)
--- NOTE | 2019-09-02 14:38 | PDOC.PALCO ---
Palliative Care Consult - Consult Details Requesting Physician: Dr Kelsey Reason for Consult: goals of care, family support, complex decision-making Family Members Present: None - Pertinent HPI 74 year old female who reportedly resides at a snf secondary to multiple morbidities including Schizophrenia, bi-polar disorder, dementia, deconditioning and requiring assistance for all ADL's. 08/27/2019 presented to the Emergency room for and subsequently admitted for hypoxic respiratory failure , failing a trail with BiPap and required subsequent intubation. Prior to this hospitalization family reports patient has had decline, primarily wheelchair bound. Continued decline through hospital stay, most recently records indicate that a trial to decrease sedation caused an episode of bradycardia. Patient siblings act as collaborative decision makers. - Pertinent PMH Schizophrenia, bipolar disorder, hypothyroid, physical deconditioning, obesity - Social History Living Situation: snf resident - Medications MAR Reviewed: Yes - Allergies Allergies/Adverse Reactions: Allergies Allergy/AdvReac Type Severity Reaction Status Date / Time Penicillins Allergy Verified 09/19/18 01:12 popcorn Allergy Uncoded 02/09/15 14:56 - Subjective Sedated, mechanical intubation. Opens eyes with stimulation - ROS Non Response: due to endotracheal tube, due to mental status - Objective Vital Signs: Vital Signs - Most Recent Temp Pulse Resp BP Pulse Ox 99.0 F 58 L 24 H 172/91 H 97 09/02/19 12:00 09/02/19 10:53 09/02/19 12:00 09/02/19 10:53 09/02/19 10:52 Palliative Performance Scale: 20 - Physical Exam Constitutional: encephalitic, ill appearing HEENT: moist MMs, sclera anicteric Deviation from normal: mechanical ventilation Cardiovascular: RRR Gastrointestinal: soft, non-tender, incontinent Genitourinary: canela catheter Musculoskeletal: no cyanosis, no clubbing, muscle wasting Skin: cap refill <2 seconds Deviation from normal: sedated - Problem List (1) Palliative care encounter Code(s): Z51.5 - ENCOUNTER FOR PALLIATIVE CARE Current Visit: Yes Status: Acute (2) Physical deconditioning Code(s): R53.81 - OTHER MALAISE Current Visit: Yes Status: Acute (3) Acute hypercapnic respiratory failure Code(s): J96.02 - ACUTE RESPIRATORY FAILURE WITH HYPERCAPNIA Current Visit: Yes Status: Acute (4) Acute on chronic diastolic ACC/AHA stage C congestive heart failure Code(s): I50.33 - ACUTE ON CHRONIC DIASTOLIC (CONGESTIVE) HEART FAILURE Current Visit: No Status: Acute (5) Obesity (BMI 30.0-34.9) Code(s): E66.9 - OBESITY, UNSPECIFIED Current Visit: No Status: Chronic (6) Schizophrenia Code(s): F20.9 - SCHIZOPHRENIA, UNSPECIFIED Current Visit: No Status: Chronic (7) Acute metabolic encephalopathy Code(s): G93.41 - METABOLIC ENCEPHALOPATHY Current Visit: No Status: Resolved - Plan/Recommendations Plan: Palliative care has had communication with patient family. Currently deciding if transition to comfort measures or Trach/PEG and LTAC. Dr Kelsey and Sherrie Crenshaw RN pallative care visited with family at length, family requesting to converse amongst themselves this evening and offer a decision tomorrow. Discussed option of follow up meeting 09/03/19 with family to discuss meaningful recovery in light of decline prior to admission. Please also refer to Palliative Care RN notes in note section. [40] minutes spent on this encounter with >50% of the time in counseling and coordination of care. Thank you for this very appropriate consult.
--- NOTE | 2019-09-02 15:22 | PDOC.HOSPP ---
- Subjective Encounter Date: 09/02/19 Encounter Time: 15:25 Subjective: f/u resp failure/PNA and [facility] Unsuccessful weaning and plan for family meeting to discuss goals of care 09/03/19. - Objective Vital Signs & Weight: Vital Signs (12 hours) Temp Pulse Resp BP Pulse Ox 09/02/19 14:58 71 157/78 H 09/02/19 14:57 72 16 99 09/02/19 14:00 11 L 09/02/19 12:00 99.0 F 24 H 09/02/19 10:53 58 L 172/91 H 09/02/19 10:52 67 16 97 09/02/19 10:00 13 09/02/19 08:00 28 H 98 09/02/19 07:00 99.0 F 09/02/19 06:55 67 13 119/56 L 98 09/02/19 06:54 66 13 98 09/02/19 06:00 16 09/02/19 04:00 13 Weight Admit Weight 218 lb Weight 231 lb 4.238 oz Most Recent Monitor Data Heart Rate from ECG 71 NIBP 157/78 NIBP BP-Mean 104 Respiration from ECG 2 SpO2 100 I&O: 09/01/19 09/02/19 09/03/19 06:59 06:59 06:59 Intake Total 4196.2 1397 Output Total 3110 3245 2090 Balance 1086.2 -1848 -2090 Result Diagrams: 09/02/19 03:30 08/31/19 03:55 Additional Labs: Microbiology 08/28/19 02:32 Sputum Respiratory Culture - Final 08/27/19 10:24 Urine canela catheter Urine Culture - Final Escherichia coli 08/27/19 10:14 Venous blood - Right Hand Blood Culture - Final NO GROWTH IN 5 DAYS 08/27/19 10:14 Venous blood - Right Arm Blood Culture - Final NO GROWTH IN 5 DAYS 08/27/19 09:53 Nasal swab Influenza Types A,B Direct EIA - Final Laboratory Tests 08/29/19 08/30/19 08/31/19 04:05 03:39 03:36 WBC 14.2 H 14.9 H 14.0 H Hgb 8.1 L 8.8 L 8.7 L Plt Count 384 475 H 469 H Band Neuts % (Manual) 28 H 19 H 19 H 09/01/19 03:30 WBC 14.2 H Hgb 8.8 L Plt Count 421 H Band Neuts % (Manual) 19 H Radiology Reviewed by me: Yes (PCXR - bilat effusions, parenchymal changes L>R) EKG Reviewed by me: Yes (Tele - SR) Hospitalist ROS - Medication Medications: Active Medications Generic Name Dose Route Start Last Admin Trade Name Freq PRN Reason Stop Dose Admin Albuterol/Ipratropium 3 ml 08/27/19 18:30 09/02/19 14:57 Duoneb NEB 3 ml [id number] TONY Administration Budesonide 0.5 mg 09/01/19 18:30 09/02/19 06:55 Pulmicort Neb Solution NEB 0.5 mg BID-RT TONY Administration Divalproex Sodium 750 mg 08/30/19 21:00 09/02/19 08:55 Depakote Sprinkle PO 750 mg BID TONY Administration Enoxaparin Sodium 40 mg 08/27/19 21:00 09/01/19 20:07 Lovenox SC 40 mg 2100 TONY Administration Famotidine 20 mg 09/01/19 09:00 09/02/19 08:29 Pepcid PO 20 mg BID TONY Administration Furosemide 40 mg 09/02/19 07:30 09/02/19 08:30 Lasix PO 40 mg DAILY-AC TONY Administration Hydralazine HCl 20 mg 08/31/19 14:23 09/01/19 17:07 Apresoline SLOW IVP 20 mg Q4H PRN Administration SBP >170 Cefepime HCl 2 gm/ Sodium 100 mls @ 200 mls/hr 08/27/19 21:00 09/02/19 08:31 Chloride IVPB 100 mls Q12HR TONY Administration Levofloxacin 750 mg/ Device 150 mls @ 100 mls/hr 08/27/19 13:00 09/02/19 13: 30 IVPB 150 mls Q24HR TONY Administration Sodium Chloride 1,000 mls @ 0 mls/hr 08/27/19 16:15 09/01/19 13:13 Normal Saline 0.9% IV Not Given .Q0M TONY KVO Fentanyl Citrate 2,000 mcg/ 100 mls @ 0 mls/hr 08/28/19 23:22 08/31/19 20:07 Sodium Chloride IV 09/27/19 23:22 100 mls INF TONY Administration Protocol Per Protocol Levothyroxine Sodium 75 mcg 08/28/19 06:00 09/02/19 04:49 Synthroid PO 75 mcg 0600 TONY Administration Lisinopril 20 mg 08/28/19 09:00 09/02/19 08:30 Zestril PO 20 mg DAILY TONY Administration Lorazepam 2 mg 08/28/19 23:22 08/31/19 16:12 Ativan SLOW IVP 09/27/19 23:22 2 mg Q1H PRN Administration Breakthrough agitation Methylprednisolone Sodium Succinate 40 mg 08/31/19 09:00 09/02/19 08:30 Solu-Medrol IVP 40 mg BID TONY Administration Olanzapine 25 mg 08/27/19 21:00 09/01/19 20:34 Zyprexa PO Not Given HS TONY Propofol 1,000 mg 08/28/19 23:22 09/02/19 11:00 Diprivan IV 09/27/19 23:22 1,000 mg INF PRN Administration TO ACHIEVE GOAL RASS Protocol Sodium Bicarbonate 650 mg 08/30/19 12:08 08/30/19 12:14 Bicarbonate, Sodium PER TUBE 650 mg PRN PRN Administration TUBE OCCLUSION TX Sodium Chloride 10 ml 08/30/19 21:00 09/02/19 08:30 Flush - Normal Saline IVF 10 ml Q12HR TONY Administration Trazodone HCl 50 mg 09/01/19 21:00 09/01/19 20:07 Desyrel PO 50 mg HS TONY Administration - Exam General - other findings: sedate on mech ventilation ENT: normocephalic atraumatic, no oropharyngeal lesions ENT - other findings: ETT in place Neck: supple, symmetric, no JVD, no thyromegaly Heart: RRR, no murmur, no gallops, no rubs, normal peripheral pulses Heart - other findings: diminished heart sounds Respiratory: no ronchi, no tachypnea Respiratory - other findings: diminished in bilat [place] Gastrointestinal: soft, non-distended, normal bowel sounds, no palpable masses Gastrointestinal - other findings: obese Extremities: no cyanosis, 1+ LE edema Skin: normal turgor, no lesions Psychiatric: somnolent, lethargic Psychiatric - other findings: sedate on mech ventilation Hosp A/P (1) Acute hypercapnic respiratory failure Code(s): J96.02 - ACUTE RESPIRATORY FAILURE WITH HYPERCAPNIA Status: Acute Plan: Persistent [facility], may not be weanable (2) PNA (pneumonia) Code(s): J18.9 - PNEUMONIA, UNSPECIFIED ORGANISM Status: Acute Plan: Bilateral involvement, continue Cefepime/Levaquin, Duonebs/Solumedrol (3) UTI (urinary tract infection) Status: Acute Plan: Continue Cefepime (4) Acute on chronic diastolic ACC/AHA stage C congestive heart failure Code(s): I50.33 - ACUTE ON CHRONIC DIASTOLIC (CONGESTIVE) HEART FAILURE Status : Acute Plan: Continue Lasix 40mg daily, daily weights, I/O's (5) Obesity (BMI 30.0-34.9) Code(s): E66.9 - OBESITY, UNSPECIFIED Status: Chronic (6) Schizophrenia Code(s): F20.9 - SCHIZOPHRENIA, UNSPECIFIED Status: Chronic - Plan continue antibiotics, social work job titles, respiratory therapy, DVT proph w/SCDs Continue critical support with SIMV Sedation with Propofol Continue Cefepime/Levaquin Continue Solumedrol IV Lasix 40mg po daily AM lab: BMP, CBC, ABG PCXR in am Plan for family meeting to discuss goals of care in am
[2019-09-02] MEDS ORDERED: Bisacodyl 10 MG SUPP PR PRN (15:38)
[2019-09-02] MEDS ORDERED: Metoclopramide 10 MG/10 ML UDCUP PER TUBE SCH (17:00)
[2019-09-02] MEDS: Enoxaparin Sodium 40 MG/0.4 ML SYRINGE SC SCH (22:31)
[2019-09-02] MEDS: OLANZapine 5 MG TAB PO SCH (22:35)
[2019-09-02] MEDS: traZODone HCl 50 MG TAB PO SCH (22:35)
[2019-09-02] MEDS: fentaNYL Citrate/PF 2,000 MCG in Sodium Chloride 0.9% 60 ML IV SCH (23:35)
[2019-09-03] MEDS: Propofol 1,000 MG/100 ML VIAL IV PRN (02:44)
[2019-09-03 05:27] LABS: Anion Gap 11 mmol/L (10-20); BUN (Urea Nitrogen) 32 mg/dL (9.8-20.1); Calc. Creatinine Clearance 112 mL/min (70-130); Carbon Dioxide 29 mmol/L (23-31); Chloride 105 mmol/L (98-107); Estimated GFR-MDRD 77; Glucose 210 mg/dL (83-110); Potassium 4.6 mmol/L (3.5-5.1); Sodium 140 mmol/L (136-145)
[2019-09-03] MEDS: Levothyroxine Sodium 75 MCG TAB PO SCH (05:55)
[2019-09-03 06:47] LABS: Hemoglobin 7.8 g/dL (12.0-16.0); Mean Corpuscular HGB CONC 32.1 g/dL (32.0-36.0); Mean Corpuscular Hemoglobin 30.1 pg (27.0-31.0); Mean Corpuscular Volume 93.7 fL (78.0-98.0); Mean Platelet Volume 7.7 fL (7.4-10.4); Platelet Count 305 thou/uL (130-400); RBC Distribution Width 16.1 % (11.5-14.5); Red Blood Cell (RBC) Count 2.59 mill/uL (4.20-5.40); White Blood Cell (WBC) Count 12.4 thou/uL (4.8-10.8)
[2019-09-03 06:53] LABS: Band 18 % (5-11); Lymphocytes 8 % (21-51); MDiff Complete? YES; Monocytes 1 % (0-10); Myelocyte 3 % (0-0); Neutrophil 70 % (42-75)
[2019-09-03] MEDS: Budesonide 0.5 MG/2 ML NEB NEB SCH ×2 (07:42→18:15)
[2019-09-03 07:51] LABS: Actual Bicarbonate (HCO3a) 28.4 mEq/L (22-28); Base Excess (BEa) 4.3 mEq/L (-2.0 to +3.0); CO2 Tension 40.5 mmHg (35.0-45.0); Calcium, Ionized 1.14 mmol/L (1.12-1.30); Carboxyhemoglobin (COHb) 0.8 gm% (0.0-3.0); Hemoglobin (Hb) 8.8 g/dL (12.0-16.0); Potassium - ABG Lab 4.57 mmol/L (3.70-5.30); pH, Arterial 7.46 (7.35-7.45)
[2019-09-03 07:52] LABS: ALV-art Gradient 81.275 (0-20); Puncture Site RRA
--- NOTE | 2019-09-03 09:00 | RAD ---
CHEST 1 VIEW PORTABLE: Date: 09/03/2019 HISTORY: Respiratory insufficiency. Ventilated patient. COMPARISON: 09/02/2019. FINDINGS: NG tube remains in place. Endotracheal tube is in place but appears to be in a somewhat more caudal l ocation than on the most recent prior study, now within 1.0 cm of the uzair. Bilateral pleural effus ions. Stable vascular congestion. IMPRESSION: Endotracheal tube has descended slightly and now is within 1.0 cm of the uzair. Stable vascular haritha estion and small pleural effusions. Continue short-term follow-up. POS: [facility]
--- NOTE | 2019-09-03 09:09 | PRG ---
DATE OF SERVICE: 09/03/2019 SUBJECTIVE: Noy Lara this morning, remains intubated in the vent, minimized sedation. She is still quite encephalopathic. OBJECTIVE: VITAL SIGNS: Pulse 68, blood pressure 173/79, saturations 100%, respiratory rate 18, and afebrile. CHEST: Bilateral rhonchi. CARDIAC: Normal S1 and S2. No gallops. ABDOMEN: No masses. LABORATORY DATA: White count 12,000, H and H are 7 and 24, platelet count is normal. P02 is 82, pCO2 is 40, pH 7.46. Lytes are normal. IMPRESSION: Respiratory failure, bipolar, schizophrenic, morbid obesity, probably sleep apnea, baseline chronic obstructive pulmonary disease, hypoventilation syndrome, probably diastolic dysfunction. PLAN: Hold sedation. Continue aggressive PT, supportive care, and nutrition. We had a very lengthy discussion with the patient's several family members yesterday. There is no uniform consensus, but for the time being, they want everything to be done including trach and a PEG if it needs to. Once again, we will try minimize sedation. Hopefully, we can try and wean if possible. Otherwise, she is going to need a trach and PEG and long-term placement. One-half hour critical care time. Job ID: [id number]
[2019-09-03] MEDS: Furosemide 40 MG TAB PO SCH (09:10)
[2019-09-03] MEDS: Cefepime 2 GM in Sodium Chloride 0.9% 100 ML IVPB SCH ×2 (09:11→20:57)
[2019-09-03] MEDS: Lisinopril 20 MG TAB PO SCH (09:11)
[2019-09-03] MEDS: Famotidine 20 MG TAB PO SCH ×2 (09:11→20:57)
[2019-09-03] MEDS: Divalproex Sodium 125 mg Sprinkle Capsule PO SCH ×2 (09:42→20:57)
[2019-09-03] MEDS: methylPREDNISolone Sod Succ 40 MG VIAL IVP SCH (09:44)
[2019-09-03] MEDS: hydrALAZINE 20 MG/ML VIAL SLOW IVP PRN ×2 (11:43→15:10)
--- NOTE | 2019-09-03 15:17 | PDOC.PALPN ---
Palliative Progress Note - Subjective Remains intubated. Attempts to decrease sedation and hopefully extubate eventually. Weakness and encephalopathy. - Objective Vital Signs: Vital Signs - Most Recent Temp Pulse Resp BP Pulse Ox 98.8 F 99 14 192/73 H 97 09/03/19 11:00 09/03/19 15:10 09/03/19 14:00 09/03/19 15:10 09/03/19 08:00 - Physical Exam Constitutional: encephalitic, ill appearing, mild distress HEENT: sclera anicteric Respiratory: diminished lung sound Deviation from normal: Intubated, adventicious lung sounds. Cardiovascular: RRR Gastrointestinal: non-tender Genitourinary: canela catheter Musculoskeletal: diffuse muscle atrophy Skin: bruising, fragile Deviation from normal: encephalopathy - Assessment (1) Palliative care encounter Code(s): Z51.5 - ENCOUNTER FOR PALLIATIVE CARE Current Visit: Yes Status: Acute (2) Physical deconditioning Code(s): R53.81 - OTHER MALAISE Current Visit: Yes Status: Acute (3) Acute hypercapnic respiratory failure Code(s): J96.02 - ACUTE RESPIRATORY FAILURE WITH HYPERCAPNIA Current Visit: Yes Status: Acute (4) Acute on chronic diastolic ACC/AHA stage C congestive heart failure Code(s): I50.33 - ACUTE ON CHRONIC DIASTOLIC (CONGESTIVE) HEART FAILURE Current Visit: No Status: Acute (5) Obesity (BMI 30.0-34.9) Code(s): E66.9 - OBESITY, UNSPECIFIED Current Visit: No Status: Chronic (6) Schizophrenia Code(s): F20.9 - SCHIZOPHRENIA, UNSPECIFIED Current Visit: No Status: Chronic - Plan Plan: Lengthy conversation with patient two sisters and one brother via phone conference, Sherrie Crenshaw RNfieldwork coordinator facilitated. Family revisited options and talked through decisions. Therapeutic listening and emotional support. Discussed poor meaningful recovery and revisited patient decline prior to hospital stay. *Family continues to be unable to make a decision in relation to Trach/PEG or comfort *Family will come to the hospital Saturday to see Ms Lara and hope to make a decision then. *Palliative care will continue to support patient and family [60] minutes spent on this encounter with >50% of the time in counseling and coordination of care. - ROS Non Response: due to endotracheal tube, due to mental status
[2019-09-03] MEDS ORDERED: Amlodipine 5 MG TAB PER TUBE SCH (15:30)
[2019-09-03] MEDS ORDERED: hydrALAZINE 20 MG/ML VIAL SLOW IVP SCH (15:45)
[2019-09-03] MEDS: Guaifenesin DM 100-10/5 ML UDCUP PO PRN ×2 (18:02→23:38)
--- NOTE | 2019-09-03 20:32 | PDOC.HOSPP ---
- Subjective Encounter Date: 09/03/19 Encounter Time: 21:00 Subjective: f/u for resp failure on current SIMV with FIO2 30%. Sedation held but BP trending upward. Family undecided on retirement care but pt may need trach/PEG in interim. - Objective Vital Signs & Weight: Vital Signs (12 hours) Temp Pulse Pulse Pulse Resp BP BP 09/03/19 18:17 90 126/64 09/03/19 18:00 18 09/03/19 16:26 108 H 147/62 H 09/03/19 16:25 108 H 147/62 H 09/03/19 16:00 99.3 F 22 H 09/03/19 15:14 102 H 192/73 H 09/03/19 15:10 99 192/73 H 09/03/19 14:00 14 09/03/19 13:58 91 91 176/91 H 09/03/19 13:19 77 09/03/19 12:00 22 H 09/03/19 11:43 84 185/79 H 09/03/19 11:08 64 09/03/19 11:00 98.8 F 09/03/19 10:00 10 L 09/03/19 09:11 179/82 H BP Pulse Ox Pulse Ox 09/03/19 18:17 09/03/19 18:00 09/03/19 16:26 09/03/19 16:25 09/03/19 16:00 09/03/19 15:14 09/03/19 15:10 09/03/19 14:00 09/03/19 13:58 189/81 H 92 L 95 09/03/19 13:19 09/03/19 12:00 09/03/19 11:43 09/03/19 11:08 09/03/19 11:00 09/03/19 10:00 09/03/19 09:11 Weight Admit Weight 218 lb Weight 222 lb 10.67 oz Most Recent Monitor Data Heart Rate from ECG 80 NIBP 130/58 NIBP BP-Mean 82 Respiration from ECG 7 SpO2 98 I&O: 09/02/19 09/03/19 09/04/19 06:59 06:59 06:59 Intake Total 1397 3991 839 Output Total 8777 9320 8870 Balance -3467 -614 -2611 Result Diagrams: 09/04/19 03:35 09/04/19 03:35 Additional Labs: Microbiology 08/28/19 02:32 Sputum Respiratory Culture - Final 08/27/19 10:24 Urine canela catheter Urine Culture - Final Escherichia coli 08/27/19 10:14 Venous blood - Right Hand Blood Culture - Final NO GROWTH IN 5 DAYS 08/27/19 10:14 Venous blood - Right Arm Blood Culture - Final NO GROWTH IN 5 DAYS 08/27/19 09:53 Nasal swab Influenza Types A,B Direct EIA - Final Laboratory Tests 08/29/19 08/30/19 08/31/19 04:05 03:39 03:36 WBC 14.2 H 14.9 H 14.0 H Hgb 8.1 L 8.8 L 8.7 L Plt Count 384 475 H 469 H Band Neuts % (Manual) 28 H 19 H 19 H 09/01/19 09/02/19 03:30 03:30 WBC 14.2 H 16.0 H Hgb 8.8 L 8.6 L Plt Count 421 H 402 H Band Neuts % (Manual) 19 H Radiology Reviewed by me: Yes (PCXR - ETT in place, vasc congestion noted) EKG Reviewed by me: Yes (Tele - SR) Hospitalist ROS - Medication Medications: Active Medications Generic Name Dose Route Start Last Admin Trade Name Freq PRN Reason Stop Dose Admin Albuterol/Ipratropium 3 ml 08/27/19 18:30 09/03/19 18:15 Duoneb NEB 3 ml [id number] TONY Administration Budesonide 0.5 mg 09/01/19 18:30 09/03/19 18:15 Pulmicort Neb Solution NEB 0.5 mg BID-RT TONY Administration Divalproex Sodium 750 mg 08/30/19 21:00 09/03/19 09:42 Depakote Sprinkle PO 750 mg BID TONY Administration Enoxaparin Sodium 40 mg 08/27/19 21:00 09/02/19 22:31 Lovenox SC 40 mg 2100 TONY Administration Famotidine 20 mg 09/01/19 09:00 09/03/19 09:11 Pepcid PO 20 mg BID TONY Administration Furosemide 40 mg 09/02/19 07:30 09/03/19 09:10 Lasix PO 40 mg DAILY-AC TONY Administration Guaifenesin/Dextromethorphan 10 ml 09/03/19 15:31 09/03/19 18:02 Robitussin Dm PO 10 ml Q4H PRN Administration Cough Hydralazine HCl 20 mg 08/31/19 14:23 09/03/19 15:10 Apresoline SLOW IVP 20 mg Q4H PRN Administration SBP >160 Cefepime HCl 2 gm/ Sodium 100 mls @ 200 mls/hr 08/27/19 21:00 09/03/19 09:11 Chloride IVPB 100 mls Q12HR TONY Administration Levofloxacin 750 mg/ Device 150 mls @ 100 mls/hr 08/27/19 13:00 09/03/19 13: 50 IVPB 150 mls Q24HR TONY Administration Sodium Chloride 1,000 mls @ 0 mls/hr 08/27/19 16:15 09/01/19 13:13 Normal Saline 0.9% IV Not Given .Q0M TONY KVO Fentanyl Citrate 2,000 mcg/ 100 mls @ 0 mls/hr 08/28/19 23:22 09/02/19 23:35 Sodium Chloride IV 09/27/19 23:22 100 mls INF TONY Administration Protocol Per Protocol Levothyroxine Sodium 75 mcg 08/28/19 06:00 09/03/19 05:55 Synthroid PO 75 mcg 0600 TONY Administration Lisinopril 20 mg 08/28/19 09:00 09/03/19 09:11 Zestril PO 20 mg DAILY TONY Administration Lorazepam 2 mg 08/28/19 23:22 08/31/19 16:12 Ativan SLOW IVP 09/27/19 23:22 2 mg Q1H PRN Administration Breakthrough agitation Olanzapine 25 mg 08/27/19 21:00 09/02/19 22:35 Zyprexa PO 25 mg HS TONY Administration Propofol 1,000 mg 08/28/19 23:22 09/03/19 02:44 Diprivan IV 09/27/19 23:22 1,000 mg INF PRN Administration TO ACHIEVE GOAL RASS Protocol Sodium Bicarbonate 650 mg 08/30/19 12:08 08/30/19 12:14 Bicarbonate, Sodium PER TUBE 650 mg PRN PRN Administration TUBE OCCLUSION TX Sodium Chloride 10 ml 08/30/19 21:00 09/03/19 09:45 Flush - Normal Saline IVF 10 ml Q12HR TONY Administration Trazodone HCl 50 mg 09/01/19 21:00 09/02/19 22:35 Desyrel PO 50 mg HS TONY Administration - Exam General - other findings: sedate on mech ventilation ENT: normocephalic atraumatic, no oropharyngeal lesions Neck: supple, symmetric, no JVD, no thyromegaly, no lymphadenopathy Heart: RRR, no murmur, no gallops, no rubs, normal peripheral pulses Heart - other findings: distant hear sounds Respiratory: no ronchi, rales, tachypneic Respiratory - other findings: diminished in bases Gastrointestinal: soft, non-tender, non-distended, normal bowel sounds Gastrointestinal - other findings: obese Extremities: no cyanosis, 1+ LE edema Skin: normal turgor, no lesions Neurological: no new deficit Musculoskeletal: generalized weakness Psychiatric: somnolent, lethargic Hosp A/P (1) Acute hypercapnic respiratory failure Code(s): J96.02 - ACUTE RESPIRATORY FAILURE WITH HYPERCAPNIA Status: Acute Plan: Remains on mech ventilation with FIO2 30%, remains unweanable and may need trach (2) PNA (pneumonia) Code(s): J18.9 - PNEUMONIA, UNSPECIFIED ORGANISM Status: Acute Plan: Continue Cefepime/Levaquin/Solumedrol (3) UTI (urinary tract infection) Status: Acute Plan: E. coli isolated, completing tx course (4) Acute on chronic diastolic ACC/AHA stage C congestive heart failure Code(s): I50.33 - ACUTE ON CHRONIC DIASTOLIC (CONGESTIVE) HEART FAILURE Status : Acute Plan: Continue Lasix 40mg daily (5) Obesity (BMI 30.0-34.9) Code(s): E66.9 - OBESITY, UNSPECIFIED Status: Chronic (6) Schizophrenia Code(s): F20.9 - SCHIZOPHRENIA, UNSPECIFIED Status: Chronic - Plan continue antibiotics, aids social worker, respiratory therapy, DVT proph w/SCDs Continue critical support with SIMV Weaning sedation Continue Cefepime/Levaquin Continue Solumedrol IV Lasix 40mg PT daily AM lab: BMP, CBC, ABG PCXR in am Plan for family meeting to discuss goals of care 09/05/19
[2019-09-03] MEDS: Enoxaparin Sodium 40 MG/0.4 ML SYRINGE SC SCH (20:57)
[2019-09-03] MEDS: traZODone HCl 50 MG TAB PO SCH (20:57)
[2019-09-03] MEDS: OLANZapine 5 MG TAB PO SCH (21:00)
[2019-09-04] MEDS: Morphine 2 MG/ML SYRINGE SLOW IVP PRN (01:40)
[2019-09-04 04:10] LABS: Hemoglobin 8.9 g/dL (12.0-16.0); Mean Corpuscular HGB CONC 31.4 g/dL (32.0-36.0); Mean Corpuscular Hemoglobin 29.6 pg (27.0-31.0); Mean Corpuscular Volume 94.2 fL (78.0-98.0); Mean Platelet Volume 7.6 fL (7.4-10.4); Platelet Count 353 thou/uL (130-400); RBC Distribution Width 16.2 % (11.5-14.5); White Blood Cell (WBC) Count 19.3 thou/uL (4.8-10.8)
[2019-09-04 04:16] LABS: Band 4 % (5-11); Lymphocytes 10 % (21-51); MDiff Complete? YES; Metamyelocyte 4 % (0-0); Monocytes 10 % (0-10); Myelocyte 2 % (0-0); Neutrophil 70 % (42-75); Nucleated RBC 1 % (0); Platelet Morphology Comment Appears Adequate
[2019-09-04 04:20] LABS: Anion Gap 10 mmol/L (10-20); BUN (Urea Nitrogen) 32 mg/dL (9.8-20.1); Calc. Creatinine Clearance 107 mL/min (70-130); Calcium 8.9 mg/dL (7.8-10.44); Carbon Dioxide 34 mmol/L (23-31); Chloride 101 mmol/L (98-107); Estimated GFR-MDRD 76; Glucose 146 mg/dL (83-110); Potassium 3.9 mmol/L (3.5-5.1); Sodium 141 mmol/L (136-145)
[2019-09-04] MEDS: Levothyroxine Sodium 75 MCG TAB PO SCH (06:29)
[2019-09-04] MEDS: cloNIDine 0.1 MG TAB PO PRN ×2 (06:29→11:18)
[2019-09-04] MEDS: Guaifenesin DM 100-10/5 ML UDCUP PO PRN ×2 (06:30→11:26)
[2019-09-04] MEDS: Budesonide 0.5 MG/2 ML NEB NEB SCH ×2 (07:06→19:01)
[2019-09-04 07:16] LABS: Base Excess (BEa) 9.8 mEq/L (-2.0 to +3.0); CO2 Tension 44.8 mmHg (35.0-45.0); Calcium, Ionized 1.14 mmol/L (1.12-1.30); Carboxyhemoglobin (COHb) 1.8 gm% (0.0-3.0); Hemoglobin (Hb) 8.3 g/dL (12.0-16.0); O2 Tension (PaO2) 75.2 mmHg (> 70.0); Potassium - ABG Lab 3.61 mmol/L (3.70-5.30)
[2019-09-04 07:30] LABS: Puncture Site RRA
[2019-09-04] MEDS: Furosemide 40 MG TAB PO SCH (08:26)
[2019-09-04] MEDS: Lisinopril 20 MG TAB PO SCH (08:26)
[2019-09-04] MEDS: Amlodipine 5 MG TAB PER TUBE SCH (08:27)
[2019-09-04] MEDS: methylPREDNISolone Sod Succ 40 MG VIAL IVP SCH (08:27)
[2019-09-04] MEDS: Cefepime 2 GM in Sodium Chloride 0.9% 100 ML IVPB SCH ×2 (08:27→21:53)
--- NOTE | 2019-09-04 08:47 | RAD ---
CHEST 1 VIEW: HISTORY: Ventilated patient. COMPARISON: Chest radiograph of prior day. FINDINGS: The patient is intubated with endotracheal tube tip in unchanged position just above the uzair appro ximately a centimeter. Enteric tube tip below the diaphragm out of the field of view. Moderate left and small right effusion. Compressive atelectasis of both lung bases. No pneumothorax . IMPRESSION: Similar exam of the chest. POS: CET
[2019-09-04] MEDS ORDERED: methylPREDNISolone Sod Succ 40 MG VIAL IVP SCH (09:00)
--- NOTE | 2019-09-04 09:36 | PRG ---
DATE OF SERVICE: 09/04/2019 SUBJECTIVE: This morning, she is off all sedation. OBJECTIVE: VITAL SIGNS: Pulse 52, blood pressure 130/80, saturations 95%, respiratory rate 13. GENERAL: Opens eyes. Still encephalopathic. CHEST: Decreased breath sounds. No wheezing. CARDIAC: Normal S1 and S2. No gallops. ABDOMEN: No masses. LABORATORY DATA: White count 19,000, H and H 8 and 28, platelet count 253. PO2 of 75, pCO2 of 44, pH 7.50, and lytes are normal. ASSESSMENT: 1. Congestive heart failure. 2. Morbid obesity. 3. Sleep apnea. 4. Respiratory failure. 5. Bipolar. Discontinue Levaquin. Continue Maxipime. 6. Urinary tract infection. PLAN: Await input from family regarding ongoing issues. If they want trach and a PEG, we will consider weaning and extubation. If she fails, she is going to need a trach and PEG. In the meantime, PT and supportive care. Prognosis is guarded. One-half hour of critical care time. Job ID: [id number]
[2019-09-04] MEDS: Divalproex Sodium 125 mg Sprinkle Capsule PO SCH ×2 (09:40→21:54)
[2019-09-04] MEDS: Famotidine 20 MG TAB PO SCH ×2 (09:40→21:54)
[2019-09-04] MEDS: Amlodipine 5 MG TAB PO SCH (11:18)
--- NOTE | 2019-09-04 15:07 | PDOC.HOSPP ---
- Subjective Encounter Date: 09/04/19 Encounter Time: 08:15 Subjective: [facility] sedation off and followed a few commands per nursing. Family meeting planned 09/05/19 for goals of care and terminal carman planning. - Objective Vital Signs & Weight: Vital Signs (12 hours) Temp Pulse Resp BP Pulse Ox 09/04/19 14:00 17 09/04/19 13:38 69 09/04/19 12:00 13 09/04/19 11:18 75 171/65 H 09/04/19 11:00 99.3 F 09/04/19 10:18 75 09/04/19 10:00 12 09/04/19 08:27 70 133/65 09/04/19 08:26 133/65 09/04/19 08:00 13 96 09/04/19 07:28 73 09/04/19 07:00 99.7 F H 09/04/19 06:29 184/72 H 09/04/19 06:00 27 H 09/04/19 04:00 99 F 21 H Weight Admit Weight 218 lb Weight 222 lb 10.672 oz Most Recent Monitor Data Heart Rate from ECG 75 NIBP 152/114 NIBP BP-Mean 126 Respiration from ECG 17 SpO2 96 I&O: 09/03/19 09/04/19 09/05/19 06:59 06:59 06:59 Intake Total 2097 1977 240 Output Total 1015 0011 1826 [facility]257 -2412 -2982 Result Diagrams: 09/04/19 03:35 09/04/19 03:35 Additional Labs: Microbiology 08/28/19 02:32 Sputum Respiratory Culture - Final 08/27/19 10:24 Urine canela catheter Urine Culture - Final Escherichia coli 08/27/19 10:14 Venous blood - Right Hand Blood Culture - Final NO GROWTH IN 5 DAYS 08/27/19 10:14 Venous blood - Right Arm Blood Culture - Final NO GROWTH IN 5 DAYS 08/27/19 09:53 Nasal swab Influenza Types A,B Direct EIA - Final Laboratory Tests 08/29/19 08/30/19 08/31/19 04:05 03:39 03:36 WBC 14.2 H 14.9 H 14.0 H Hgb 8.1 L 8.8 L 8.7 L Plt Count 384 475 H 469 H Band Neuts % (Manual) 28 H 19 H 19 H 09/01/19 09/02/19 03:30 03:30 WBC 14.2 H 16.0 H Hgb 8.8 L 8.6 L Plt Count 421 H 402 H Band Neuts % (Manual) 19 H Radiology Reviewed by me: Yes (PCXR - lines/tubes in place, atelectasis bilat) EKG Reviewed by me: Yes (Tele - SR) Hospitalist ROS - Medication Medications: Active Medications Generic Name Dose Route Start Last Admin Trade Name Freq PRN Reason Stop Dose Admin Albuterol/Ipratropium 3 ml 08/27/19 18:30 09/04/19 14:08 Duoneb NEB 3 ml [id number] TONY Administration Amlodipine Besylate 5 mg 09/04/19 09:00 09/04/19 08:27 Norvasc PER TUBE 5 mg DAILY TONY Administration Amlodipine Besylate 5 mg 09/04/19 09:00 09/04/19 11:18 Norvasc PO Not Given DAILY TONY Budesonide 0.5 mg 09/01/19 18:30 09/04/19 07:06 Pulmicort Neb Solution NEB 0.5 mg BID-RT TONY Administration Clonidine 0.1 mg 09/03/19 15:33 09/04/19 11:18 Catapres PO 0.1 mg Q4H PRN Administration SBP GREATER THAN 160 Divalproex Sodium 750 mg 08/30/19 21:00 09/04/19 09:40 Depakote Sprinkle PO 750 mg BID TONY Administration Enoxaparin Sodium 40 mg 08/27/19 21:00 09/03/19 20:57 Lovenox SC 40 mg 2100 TONY Administration Famotidine 20 mg 09/01/19 09:00 09/04/19 09:40 Pepcid PO 20 mg BID TONY Administration Furosemide 40 mg 09/02/19 07:30 09/04/19 08:26 Lasix PO 40 mg DAILY-AC TONY Administration Guaifenesin/Dextromethorphan 10 ml 09/03/19 15:31 09/04/19 11:26 Robitussin Dm PO 10 ml Q4H PRN Administration Cough Hydralazine HCl 20 mg 08/31/19 14:23 09/03/19 15:10 Apresoline SLOW IVP 20 mg Q4H PRN Administration SBP >160 Cefepime HCl 2 gm/ Sodium 100 mls @ 200 mls/hr 08/27/19 21:00 09/04/19 08:27 Chloride IVPB 100 mls Q12HR TONY Administration Sodium Chloride 1,000 mls @ 0 mls/hr 08/27/19 16:15 09/01/19 13:13 Normal Saline 0.9% IV Not Given .Q0M TONY KVO Fentanyl Citrate 2,000 mcg/ 100 mls @ 0 mls/hr 08/28/19 23:22 09/02/19 23:35 Sodium Chloride IV 09/27/19 23:22 100 mls INF TONY Administration Protocol Per Protocol Levothyroxine Sodium 75 mcg 08/28/19 06:00 09/04/19 06:29 Synthroid PO 75 mcg 0600 TONY Administration Lisinopril 20 mg 08/28/19 09:00 09/04/19 08:26 Zestril PO 20 mg DAILY TONY Administration Lorazepam 2 mg 08/28/19 23:22 08/31/19 16:12 Ativan SLOW IVP 09/27/19 23:22 2 mg Q1H PRN Administration Breakthrough agitation Methylprednisolone Sodium Succinate 40 mg 09/04/19 09:00 09/04/19 08:27 Solu-Medrol IVP 40 mg DAILY TONY Administration Morphine Sulfate 2 mg 08/28/19 23:22 09/04/19 01:40 Morphine SLOW IVP 09/27/19 23:22 2 mg Q1H PRN Administration BREAKTHROUGH PAIN/Agitation Olanzapine 25 mg 08/27/19 21:00 09/03/19 21:00 Zyprexa PO 25 mg HS TONY Administration Propofol 1,000 mg 08/28/19 23:22 09/03/19 02:44 Diprivan IV 09/27/19 23:22 1,000 mg INF PRN Administration TO ACHIEVE GOAL RASS Protocol Sodium Bicarbonate 650 mg 08/30/19 12:08 08/30/19 12:14 Bicarbonate, Sodium PER TUBE 650 mg PRN PRN Administration TUBE OCCLUSION TX Sodium Chloride 10 ml 08/30/19 21:00 09/03/19 23:38 Flush - Normal Saline IVF 10 ml Q12HR TONY Administration Trazodone HCl 50 mg 09/01/19 21:00 02/20/20 20:57 Desyrel PO 50 mg HS TONY Administration - Exam General - other findings: somnolent, mech ventilation ENT: normocephalic atraumatic, no oropharyngeal lesions Neck: supple, symmetric, no JVD, no thyromegaly, no lymphadenopathy Heart: RRR, no murmur, no gallops, no rubs, normal peripheral pulses Heart - other findings: S1, S2 Respiratory: no wheezes, no ronchi, no tachypnea Respiratory - other findings: diminished in bases bilat Gastrointestinal: soft, non-tender, non-distended, normal bowel sounds, no palpable masses Gastrointestinal - other findings: obese Extremities: no cyanosis, 1+ LE edema Skin: normal turgor, no lesions Hosp A/P (1) Acute hypercapnic respiratory failure Code(s): J96.02 - ACUTE RESPIRATORY FAILURE WITH HYPERCAPNIA Status: Acute Plan: Continue SIMV with current FIO2 30% (2) PNA (pneumonia) Code(s): J18.9 - PNEUMONIA, UNSPECIFIED ORGANISM Status: Acute Plan: Continue Cefepime/Solumedrol (3) UTI (urinary tract infection) Status: Acute Plan: Improved, continue Cefepime, Canela catheter (4) Acute on chronic diastolic ACC/AHA stage C congestive heart failure Code(s): I50.33 - ACUTE ON CHRONIC DIASTOLIC (CONGESTIVE) HEART FAILURE Status : Acute (5) Obesity (BMI 30.0-34.9) Code(s): E66.9 - OBESITY, UNSPECIFIED Status: Chronic (6) Schizophrenia Code(s): F20.9 - SCHIZOPHRENIA, UNSPECIFIED Status: Chronic - Plan continue antibiotics, social psychologist, respiratory therapy, DVT proph w/SCDs Continue critical support with SIMV Weaning sedation Continue Cefepime Levaquin d/c'd Continue Solumedrol IV Lasix 40mg PT daily AM lab: BMP, CBC, ABG PCXR in am Plan for family meeting to discuss goals of care 09/05/19
[2019-09-04] MEDS: traZODone HCl 50 MG TAB PO SCH (21:54)
[2019-09-04] MEDS: OLANZapine 5 MG TAB PO SCH (21:54)
[2019-09-04] MEDS: Enoxaparin Sodium 40 MG/0.4 ML SYRINGE SC SCH (21:55)
[2019-09-05 04:13] LABS: #Eosinphils 0.1 thou/uL (0.0-0.7); #Lymphocytes 1.4 thou/uL (1.20-3.40); #Monocytes 1.4 thou/uL (0.11-0.59); %Basophils 0.1 % (0.0-1.0); %Eosinophils 0.7 % (0.0-10.0); %Lymphocytes 13.3 % (21.0-51.0); %Monocytes 12.5 % (0.0-10.0); %Neutrophils 73.4 % (42.0-75.0); Hemoglobin 7.6 g/dL (12.0-16.0); Mean Corpuscular HGB CONC 31.9 g/dL (32.0-36.0); Mean Corpuscular Hemoglobin 30.1 pg (27.0-31.0); Mean Corpuscular Volume 94.4 fL (78.0-98.0); Mean Platelet Volume 7.6 fL (7.4-10.4); Platelet Count 271 thou/uL (130-400); RBC Distribution Width 15.9 % (11.5-14.5); Red Blood Cell (RBC) Count 2.53 mill/uL (4.20-5.40); White Blood Cell (WBC) Count 10.9 thou/uL (4.8-10.8)
[2019-09-05 04:32] LABS: Anion Gap 10 mmol/L (10-20); BUN (Urea Nitrogen) 33 mg/dL (9.8-20.1); Calc. Creatinine Clearance 111 mL/min (70-130); Calcium 8.5 mg/dL (7.8-10.44); Carbon Dioxide 36 mmol/L (23-31); Chloride 100 mmol/L (98-107); Estimated GFR-MDRD 79; Glucose 161 mg/dL (83-110); Potassium 3.6 mmol/L (3.5-5.1); Sodium 142 mmol/L (136-145)
[2019-09-05] MEDS: Budesonide 0.5 MG/2 ML NEB NEB SCH ×2 (06:52→19:11)
[2019-09-05 07:34] LABS: Actual Bicarbonate (HCO3a) 34.2 mEq/L (22-28); Base Excess (BEa) 10.2 mEq/L (-2.0 to +3.0); CO2 Tension 44.6 mmHg (35.0-45.0); Calcium, Ionized 1.09 mmol/L (1.12-1.30); Carboxyhemoglobin (COHb) 1.2 gm% (0.0-3.0); Hemoglobin (Hb) 7.1 g/dL (12.0-16.0); O2 Tension (PaO2) 77.9 mmHg (> 70.0); Potassium - ABG Lab 3.57 mmol/L (3.70-5.30)
[2019-09-05 07:35] LABS: Puncture Site RR
[2019-09-05] MEDS: Furosemide 40 MG TAB PO SCH (07:57)
[2019-09-05] MEDS: Levothyroxine Sodium 75 MCG TAB PO SCH (07:57)
[2019-09-05] MEDS: Famotidine 20 MG TAB PO SCH ×2 (08:31→20:53)
[2019-09-05] MEDS: Lisinopril 20 MG TAB PO SCH (08:31)
[2019-09-05] MEDS: Amlodipine 5 MG TAB PER TUBE SCH (08:32)
[2019-09-05] MEDS: Divalproex Sodium 125 mg Sprinkle Capsule PO SCH ×2 (08:33→20:52)
[2019-09-05] MEDS: Cefepime 2 GM in Sodium Chloride 0.9% 100 ML IVPB SCH ×2 (08:33→20:52)
[2019-09-05] MEDS: methylPREDNISolone Sod Succ 40 MG VIAL IVP SCH (08:36)
[2019-09-05] MEDS: Amlodipine 5 MG TAB PO SCH (08:40)
--- NOTE | 2019-09-05 09:56 | PRG ---
DATE OF SERVICE: 09/05/2019 Thirty five minutes critical time. SUBJECTIVE: This patient remains intubated on mechanical ventilation. There have been no acute changes overnight. She is not on any continuous sedation, but does receive antipsychotic medication through her NG tube. OBJECTIVE: VITAL SIGNS: Her temperature is 99.9, pulse 87, blood pressure 126/53, O2 saturation 96%. 24-hour intake 1965, output 3010. HEENT: Unremarkable. NECK: No adenopathy or JVD. CHEST: Fairly clear anteriorly. CARDIAC: S1 and S2, regular. ABDOMEN: Soft. EXTREMITIES: No edema. LABORATORY DATA: Chest x-ray shows bilateral small effusions, left greater than right. White blood cell count 10, hematocrit 23.9, and platelet count 271. PH of 7.5, pCO2 of 44, pO2 of 77, on SIMV rate 5, tidal volume 500, PEEP 8, pressure support 10, FiO2 40%. Sodium 142, potassium 3.6, chloride 100, CO2 36, BUN 33, creatinine 0.7, glucose 161. ASSESSMENT: 1. Acute respiratory failure requiring mechanical ventilation. 2. Bipolar disorder. 3. Schizophrenia. 4. Morbid obesity. 5. HOLLI. 6. Metabolic alkalosis with compensatory respiratory acidosis. PLAN: I will go ahead and put her on some Diamox and stop the furosemide. She is not a candidate for weaning and extubation at this time based on her mental status. I will reduce her steroid dose. Job ID: [id number]
--- NOTE | 2019-09-05 11:56 | RAD ---
EXAM: CHEST ONE VIEW HISTORY: Pneumonia COMPARISON: 09/04/2019 FINDINGS: Endotracheal tube and nasogastric tubes are stable in position. Cardiac silhouette is within normal l imits. Bilateral pleural effusions are again seen larger in size on the left. Associated increased density each lung base is likely related to passive atelectasis. No other interval change. IMPRESSION: Overall stable chest with bilateral pleural effusions and passive atelectasis.
[2019-09-05] MEDS: Acetaminophen 325 MG TAB PO PRN (13:40)
--- NOTE | 2019-09-05 15:20 | PDOC.HOSPP ---
- Subjective Encounter Date: 09/05/19 Encounter Time: 11:55 Subjective: pt on vent; d/w RN - Objective Vital Signs & Weight: Vital Signs (12 hours) Temp Pulse Resp BP Pulse Ox 09/05/19 14:51 75 139/57 L 09/05/19 14:50 77 24 H 100 09/05/19 14:00 100.0 F H 17 09/05/19 12:00 101.0 F H 19 09/05/19 10:50 89 143/62 H 09/05/19 10:43 81 20 97 09/05/19 10:00 16 09/05/19 08:40 77 126/53 L 09/05/19 08:32 77 126/53 L 09/05/19 08:31 126/53 L 09/05/19 08:00 23 H 09/05/19 07:50 94 L 09/05/19 07:25 99.9 F H 09/05/19 06:56 80 123/56 L 09/05/19 06:49 73 15 94 L 09/05/19 06:00 18 09/05/19 04:10 82 09/05/19 04:00 99.1 F Weight Admit Weight 218 lb Weight 222 lb 10.672 oz Most Recent Monitor Data Heart Rate from ECG 89 NIBP 139/57 NIBP BP-Mean 84 Respiration from ECG 18 SpO2 98 I&O: 09/04/19 09/05/19 09/06/19 06:59 06:59 06:59 Intake Total 1977 1965.4 450 Output Total 4448 3010 2200 [facility] -2458 -1044.6 -1750 Result Diagrams: 09/05/19 03:13 09/05/19 03:13 Hospitalist ROS - Medication Medications: Active Medications Generic Name Dose Route Start Last Admin Trade Name Freq PRN Reason Stop Dose Admin Acetaminophen 650 mg 08/27/19 12:11 09/05/19 13:40 Tylenol PO 650 mg Q4H PRN Administration Headache/Fever/Mild Pain (1-3) Albuterol/Ipratropium 3 ml 08/27/19 18:30 09/05/19 14:50 Duoneb NEB 3 ml [id number] TONY Administration Amlodipine Besylate 5 mg 09/04/19 09:00 09/05/19 08:32 Norvasc PER TUBE 5 mg DAILY TONY Administration Amlodipine Besylate 5 mg 09/04/19 09:00 09/05/19 08:40 Norvasc PO Not Given DAILY TONY Budesonide 0.5 mg 09/01/19 18:30 09/05/19 06:52 Pulmicort Neb Solution NEB 0.5 mg BID-RT TONY Administration Clonidine 0.1 mg 09/03/19 15:33 09/04/19 11:18 Catapres PO 0.1 mg Q4H PRN Administration SBP GREATER THAN 160 Divalproex Sodium 750 mg 08/30/19 21:00 09/05/19 08:33 Depakote Sprinkle PO 750 mg BID TONY Administration Enoxaparin Sodium 40 mg 08/27/19 21:00 09/04/19 21:55 Lovenox SC 40 mg 2100 TONY Administration Famotidine 20 mg 09/01/19 09:00 09/05/19 08:31 Pepcid PO 20 mg BID TONY Administration Guaifenesin/Dextromethorphan 10 ml 09/03/19 15:31 09/04/19 11:26 Robitussin Dm PO 10 ml Q4H PRN Administration Cough Hydralazine HCl 20 mg 08/31/19 14:23 09/03/19 15:10 Apresoline SLOW IVP 20 mg Q4H PRN Administration SBP >160 Cefepime HCl 2 gm/ Sodium 100 mls @ 200 mls/hr 08/27/19 21:00 09/05/19 08:33 Chloride IVPB 100 mls Q12HR TONY Administration Sodium Chloride 1,000 mls @ 0 mls/hr 08/27/19 16:15 09/01/19 13:13 Normal Saline 0.9% IV Not Given .Q0M TONY KVO Fentanyl Citrate 2,000 mcg/ 100 mls @ 0 mls/hr 08/28/19 23:22 09/02/19 23:35 Sodium Chloride IV 09/27/19 23:22 100 mls INF TONY Administration Protocol Per Protocol Levothyroxine Sodium 75 mcg 08/28/19 06:00 09/05/19 07:57 Synthroid PO 75 mcg 0600 TONY Administration Lisinopril 20 mg 08/28/19 09:00 09/05/19 08:31 Zestril PO 20 mg DAILY TONY Administration Lorazepam 2 mg 08/28/19 23:22 08/31/19 16:12 Ativan SLOW IVP 09/27/19 23:22 2 mg Q1H PRN Administration Breakthrough agitation Morphine Sulfate 2 mg 08/28/19 23:22 09/04/19 01:40 Morphine SLOW IVP 09/27/19 23:22 2 mg Q1H PRN Administration BREAKTHROUGH PAIN/Agitation Olanzapine 25 mg 08/27/19 21:00 09/04/19 21:54 Zyprexa PO 25 mg HS TONY Administration Propofol 1,000 mg 08/28/19 23:22 09/03/19 02:44 Diprivan IV 09/27/19 23:22 1,000 mg INF PRN Administration TO ACHIEVE GOAL RASS Protocol Sodium Bicarbonate 650 mg 08/30/19 12:08 08/30/19 12:14 Bicarbonate, Sodium PER TUBE 650 mg PRN PRN Administration TUBE OCCLUSION TX Sodium Chloride 10 ml 08/30/19 21:00 09/05/19 08:36 Flush - Normal Saline IVF 10 ml Q12HR TONY Administration Trazodone HCl 50 mg 09/01/19 21:00 09/04/19 21:54 Desyrel PO 50 mg HS TONY Administration - Exam General Appearance: ill appearing General - other findings: vent Eye: PERRL ENT: normocephalic atraumatic Neck: supple Heart: RRR Respiratory: CTAB Gastrointestinal: normal bowel sounds Extremities: no cyanosis Neurological: no new deficit Hosp A/P - Plan Sepsis 2/2 Comm acq pneumonia b/l multilobar pneumonia Acute resp failure, requiring intubation (1) Acute hypercapnic respiratory failure Code(s): J96.02 - ACUTE RESPIRATORY FAILURE WITH HYPERCAPNIA Status: Acute Plan: Continue SIMV with current FIO2 30% (2) PNA (pneumonia) Code(s): J18.9 - PNEUMONIA, UNSPECIFIED ORGANISM Status: Acute Plan: Continue Cefepime/Solumedrol (3) UTI (urinary tract infection) Status: Acute Plan: Improved, continue Cefepime, Ziegler catheter (4) Acute on chronic diastolic ACC/AHA stage C congestive heart failure Code(s): I50.33 - ACUTE ON CHRONIC DIASTOLIC (CONGESTIVE) HEART FAILURE Status : Acute (5) Obesity (BMI 30.0-34.9) Code(s): E66.9 - OBESITY, UNSPECIFIED Status: Chronic (6) Schizophrenia Code(s): F20.9 - SCHIZOPHRENIA, UNSPECIFIED Status: Chronic - Plan continue antibiotics, social worker palliative care, respiratory therapy, DVT proph w/SCDs Continue critical support with SIMV Weaning sedation Continue Cefepime Levaquin d/c'd Continue Solumedrol IV Lasix 40mg PT daily AM lab: BMP, CBC, ABG PCXR in am Plan for family meeting to discuss goals of care 09/05/19 family is here and i am going to d/w them plan of care.
[2019-09-05] MEDS: acetaZOLAMIDE Sodium 500 mg Vial IVP SCH (20:50)
[2019-09-05] MEDS: traZODone HCl 50 MG TAB PO SCH (20:53)
[2019-09-05] MEDS: OLANZapine 5 MG TAB PO SCH (20:53)
[2019-09-05] MEDS: Enoxaparin Sodium 40 MG/0.4 ML SYRINGE SC SCH (20:53)
[2019-09-06 04:59] LABS: #Eosinphils 0.1 thou/uL (0.0-0.7); #Lymphocytes 1.4 thou/uL (1.20-3.40); #Monocytes 2.1 thou/uL (0.11-0.59); #Neutrophils 13.2 thou/uL (1.40-6.50); %Basophils 0.2 % (0.0-1.0); %Eosinophils 0.3 % (0.0-10.0); %Lymphocytes 8.1 % (21.0-51.0); %Monocytes 12.3 % (0.0-10.0); %Neutrophils 79.1 % (42.0-75.0); Hemoglobin 7.6 g/dL (12.0-16.0); Mean Corpuscular HGB CONC 31.5 g/dL (32.0-36.0); Mean Corpuscular Hemoglobin 29.9 pg (27.0-31.0); Mean Corpuscular Volume 94.7 fL (78.0-98.0); Mean Platelet Volume 7.8 fL (7.4-10.4); Platelet Count 285 thou/uL (130-400); RBC Distribution Width 15.7 % (11.5-14.5); Red Blood Cell (RBC) Count 2.53 mill/uL (4.20-5.40); White Blood Cell (WBC) Count 16.7 thou/uL (4.8-10.8)
[2019-09-06] MEDS: Levothyroxine Sodium 75 MCG TAB PO SCH (05:20)
[2019-09-06 05:22] LABS: Anion Gap 11 mmol/L (10-20); BUN (Urea Nitrogen) 31 mg/dL (9.8-20.1); Calc. Creatinine Clearance 111 mL/min (70-130); Calcium 8.8 mg/dL (7.8-10.44); Carbon Dioxide 34 mmol/L (23-31); Chloride 100 mmol/L (98-107); Estimated GFR-MDRD 79; Glucose 130 mg/dL (83-110); Potassium 3.5 mmol/L (3.5-5.1); Sodium 141 mmol/L (136-145)
[2019-09-06] MEDS: Budesonide 0.5 MG/2 ML NEB NEB SCH ×2 (06:55→18:41)
[2019-09-06 07:49] LABS: Actual Bicarbonate (HCO3a) 32.3 mEq/L (22-28); Base Excess (BEa) 7.2 mEq/L (-2.0 to +3.0); CO2 Tension 49.4 mmHg (35.0-45.0); Calcium, Ionized 1.14 mmol/L (1.12-1.30); Carboxyhemoglobin (COHb) 1.5 gm% (0.0-3.0); Hemoglobin (Hb) 8.2 g/dL (12.0-16.0); O2 Tension (PaO2) 80.6 mmHg (> 70.0); Potassium - ABG Lab 3.68 mmol/L (3.70-5.30); pH, Arterial 7.43 (7.35-7.45)
[2019-09-06 07:57] LABS: Puncture Site RR
[2019-09-06] MEDS: Lisinopril 20 MG TAB PO SCH (08:18)
[2019-09-06] MEDS: Amlodipine 5 MG TAB PER TUBE SCH (08:19)
[2019-09-06] MEDS: Famotidine 20 MG TAB PO SCH ×2 (08:19→21:20)
[2019-09-06] MEDS: Divalproex Sodium 125 mg Sprinkle Capsule PO SCH ×2 (08:20→21:20)
[2019-09-06] MEDS: Guaifenesin DM 100-10/5 ML UDCUP PO PRN (08:20)
[2019-09-06] MEDS: Cefepime 2 GM in Sodium Chloride 0.9% 100 ML IVPB SCH (08:26)
[2019-09-06] MEDS: acetaZOLAMIDE Sodium 500 mg Vial IVP SCH ×2 (08:28→21:16)
[2019-09-06] MEDS: Amlodipine 5 MG TAB PO SCH (08:28)
[2019-09-06] MEDS: methylPREDNISolone Sod Succ 40 MG VIAL IVP SCH (08:31)
--- NOTE | 2019-09-06 10:48 | PRG ---
DATE OF SERVICE: 09/06/2019 This is 35 minutes critical care time. SUBJECTIVE: The patient remains intubated on mechanical ventilation. She is struggling today. OBJECTIVE: VITAL SIGNS: Temperature is 100.7, pulse 96, blood pressure 162/92. 24-hour intake 1935, output 3860. HEENT: Unremarkable. NECK: No adenopathy or JVD. LUNGS: Coarse rhonchi. CARDIOVASCULAR: S1, S2 regular. ABDOMEN: Soft. EXTREMITIES: Edematous. LABORATORY DATA: White blood cell count 16.7 up from 10.9, hematocrit 24, platelet count 285. PH of 7.43, pCO2 of 49, PO2 of 80, that is on SIMV rate 10, tidal volume 500, PEEP 5, pressure support 10, FiO2 45%. Sodium 141, potassium 3.5, chloride 100, CO2 of 34, BUN 31, creatinine 0.7, glucose 130. X-ray was not done today. Most recent cultures from yesterday show some gram-positive cocci in pairs and clusters on the Gram stain. ASSESSMENT: 1. Acute respiratory failure requiring mechanical ventilation. 2. Bipolar disorder. 3. Schizophrenia. 4. Morbid obesity. 5. Obstructive sleep apnea. 6. Metabolic alkalosis, which is slightly improved after starting Diamox yesterday. PLAN: 1. I do not think she is weanable at this time secondary to her neuromuscular weakness. 2. She is still having breakthrough fevers despite treatment with the cefepime. I will go ahead and stop the cefepime and start her on vancomycin and meropenem pending the results of cultures. 3. I spoke with the family yesterday at bedside. I told them that I did not think she will be weanable without tracheostomy. Job ID: [id number]
[2019-09-06] MEDS: Vancomycin HCl 1 GM in Premix Bag 1 BAG IVPB SCH ×2 (11:18→23:52)
[2019-09-06] MEDS: Acetaminophen 325 MG TAB PO PRN (11:54)
[2019-09-06] MEDS: hydrALAZINE 20 MG/ML VIAL SLOW IVP PRN (11:55)
[2019-09-06] MEDS: MEROPENEM 1 GM/50 ML 1 GM in Premix Bag 1 BAG IVPB SCH ×2 (13:43→21:21)
[2019-09-06] MEDS: Propofol 1,000 MG/100 ML VIAL IV PRN (16:39)
--- NOTE | 2019-09-06 17:11 | PDOC.HOSPP ---
- Subjective Encounter Date: 09/06/19 Encounter Time: 11:55 Subjective: on vent, fever, diamox given good urine output. abx changed. sputum bernard - staph aureus. - Objective Vital Signs & Weight: Vital Signs (12 hours) Temp Pulse Resp BP Pulse Ox 09/06/19 16:00 99.5 F 12 09/06/19 15:00 99.5 F 09/06/19 14:25 82 137/56 L 09/06/19 14:24 79 12 98 09/06/19 14:00 100.9 F H 17 09/06/19 13:00 101.0 F H 09/06/19 12:00 101.3 F H 22 H 09/06/19 11:55 84 166/67 H 09/06/19 10:27 84 160/79 H 09/06/19 10:26 87 34 H 92 L 09/06/19 10:00 22 H 09/06/19 08:28 85 156/71 H 09/06/19 08:19 85 156/71 H 09/06/19 08:18 156/71 H 09/06/19 08:00 100.7 F H 30 H 98 09/06/19 06:52 85 156/71 H 09/06/19 06:46 86 34 H 97 09/06/19 06:00 23 H Weight Admit Weight 218 lb Weight 222 lb 10.672 oz Most Recent Monitor Data Heart Rate from ECG 85 NIBP 146/54 NIBP BP-Mean 84 Respiration from ECG 10 SpO2 92 I&O: 09/05/19 09/06/19 09/07/19 06:59 06:59 06:59 Intake Total 1965.4 1935 240 Output Total 3790 3860 1265 [facility]1044.6 -1925 -1025 Result Diagrams: 09/06/19 03:43 09/06/19 03:43 Hospitalist ROS - Medication Medications: Active Medications Generic Name Dose Route Start Last Admin Trade Name Freq PRN Reason Stop Dose Admin Acetaminophen 650 mg 08/27/19 12:11 09/06/19 11:54 Tylenol PO 650 mg Q4H PRN Administration Headache/Fever/Mild Pain (1-3) Acetazolamide Sodium 250 mg 09/05/19 21:00 09/06/19 08:28 Diamox IVP 250 mg BID TONY Administration Albuterol/Ipratropium 3 ml 08/27/19 18:30 09/06/19 14:24 Duoneb NEB 3 ml [id number] TONY Administration Amlodipine Besylate 5 mg 09/04/19 09:00 09/06/19 08:19 Norvasc PER TUBE 5 mg DAILY TONY Administration Amlodipine Besylate 5 mg 09/04/19 09:00 09/06/19 08:28 Norvasc PO Not Given DAILY TONY Budesonide 0.5 mg 09/01/19 18:30 09/06/19 06:55 Pulmicort Neb Solution NEB 0.5 mg BID-RT TONY Administration Clonidine 0.1 mg 09/03/19 15:33 09/04/19 11:18 Catapres PO 0.1 mg Q4H PRN Administration SBP GREATER THAN 160 Divalproex Sodium 750 mg 08/30/19 21:00 09/06/19 08:20 Depakote Sprinkle PO 750 mg BID TONY Administration Enoxaparin Sodium 40 mg 08/27/19 21:00 09/05/19 20:53 Lovenox SC 40 mg 2100 TONY Administration Famotidine 20 mg 09/01/19 09:00 09/06/19 08:19 Pepcid PO 20 mg BID TONY Administration Guaifenesin/Dextromethorphan 10 ml 09/03/19 15:31 09/06/19 08:20 Robitussin Dm PO 10 ml Q4H PRN Administration Cough Hydralazine HCl 20 mg 08/31/19 14:23 09/06/19 11:55 Apresoline SLOW IVP 20 mg Q4H PRN Administration SBP >160 Sodium Chloride 1,000 mls @ 0 mls/hr 08/27/19 16:15 09/01/19 13:13 Normal Saline 0.9% IV Not Given .Q0M TONY KVO Fentanyl Citrate 2,000 mcg/ 100 mls @ 0 mls/hr 08/28/19 23:22 09/02/19 23:35 Sodium Chloride IV 09/27/19 23:22 100 mls INF TONY Administration Protocol Per Protocol Meropenem 1 gm/ Device 50 mls @ 100 mls/hr 09/06/19 14:00 09/06/19 13:43 IVPB 50 mls Q8HR TONY Administration Vancomycin HCl 1 gm/ Device 200 mls @ 200 mls/hr 09/06/19 11:00 09/06/19 11: 18 IVPB 200 mls 1100,2300 TONY Administration Levothyroxine Sodium 75 mcg 08/28/19 06:00 09/06/19 05:20 Synthroid PO 75 mcg 0600 TONY Administration Lisinopril 20 mg 08/28/19 09:00 09/06/19 08:18 Zestril PO 20 mg DAILY TONY Administration Lorazepam 2 mg 08/28/19 23:22 08/31/19 16:12 Ativan SLOW IVP 09/27/19 23:22 2 mg Q1H PRN Administration Breakthrough agitation Methylprednisolone Sodium Succinate 20 mg 09/06/19 09:00 09/06/19 08:31 Solu-Medrol IVP 20 mg DAILY TONY Administration Morphine Sulfate 2 mg 08/28/19 23:22 09/04/19 01:40 Morphine SLOW IVP 09/27/19 23:22 2 mg Q1H PRN Administration BREAKTHROUGH PAIN/Agitation Olanzapine 25 mg 08/27/19 21:00 09/05/19 20:53 Zyprexa PO 25 mg HS TONY Administration Propofol 1,000 mg 08/28/19 23:22 09/06/19 16:39 Diprivan IV 09/27/19 23:22 1,000 mg INF PRN Administration TO ACHIEVE GOAL RASS Protocol Sodium Bicarbonate 650 mg 08/30/19 12:08 08/30/19 12:14 Bicarbonate, Sodium PER TUBE 650 mg PRN PRN Administration TUBE OCCLUSION TX Sodium Chloride 10 ml 08/30/19 21:00 09/06/19 08:37 Flush - Normal Saline IVF 10 ml Q12HR TONY Administration Trazodone HCl 50 mg 09/01/19 21:00 09/05/19 20:53 Desyrel PO 50 mg HS TONY Administration - Exam General - other findings: awake -on vent--dept edema Eye: PERRL ENT: normocephalic atraumatic Neck: supple, symmetric, no JVD Heart: RRR Respiratory: normal chest expansion, no tachypnea Respiratory - other findings: vent Gastrointestinal: soft, normal bowel sounds Extremities - other findings: dept edema Hosp A/P - Plan Sepsis 2/2 Comm acq pneumonia b/l multilobar pneumonia Acute resp failure, requiring intubation (1) Acute hypercapnic respiratory failure Code(s): J96.02 - ACUTE RESPIRATORY FAILURE WITH HYPERCAPNIA Status: Acute Plan: Continue SIMV with current FIO2 30% (2) PNA (pneumonia) Code(s): J18.9 - PNEUMONIA, UNSPECIFIED ORGANISM Status: Acute Plan: Continue Cefepime/Solumedrol (3) UTI (urinary tract infection) Status: Acute Plan: Improved, continue Cefepime, Ziegler catheter (4) Acute on chronic diastolic ACC/AHA stage C congestive heart failure Code(s): I50.33 - ACUTE ON CHRONIC DIASTOLIC (CONGESTIVE) HEART FAILURE Status : Acute (5) Obesity (BMI 30.0-34.9) Code(s): E66.9 - OBESITY, UNSPECIFIED Status: Chronic (6) Schizophrenia Code(s): F20.9 - SCHIZOPHRENIA, UNSPECIFIED Status: Chronic - Plan continue antibiotics, [employer], respiratory therapy, DVT proph w/SCDs Continue critical support with SIMV Weaning sedation Continue Cefepime Levaquin d/c'd Continue Solumedrol IV Lasix 40mg PT daily Persistent fever and leukocytosis -cxr of - b/l pl effusions -sputum bernard w.. s.aureus -off cefepime -vanc & merum started metabolic alkalosis s/p diamox dose given.
[2019-09-06] MEDS: OLANZapine 5 MG TAB PO SCH (21:21)
[2019-09-06] MEDS: Enoxaparin Sodium 40 MG/0.4 ML SYRINGE SC SCH (21:21)
[2019-09-06] MEDS: traZODone HCl 50 MG TAB PO SCH (21:21)
[2019-09-07 04:09] LABS: Band 3 % (5-11); Lymphocytes 4 % (21-51); MDiff Complete? YES; Mean Corpuscular HGB CONC 31.3 g/dL (32.0-36.0); Mean Corpuscular Hemoglobin 30.1 pg (27.0-31.0); Mean Corpuscular Volume 96.2 fL (78.0-98.0); Mean Platelet Volume 7.8 fL (7.4-10.4); Monocytes 11 % (0-10); Neutrophil 82 % (42-75); Platelet Count 281 thou/uL (130-400); Platelet Morphology Comment Appears Adequate; RBC Distribution Width 15.5 % (11.5-14.5); Red Blood Cell (RBC) Count 2.33 mill/uL (4.20-5.40); White Blood Cell (WBC) Count 16.2 thou/uL (4.8-10.8)
[2019-09-07 04:16] LABS: Anion Gap 11 mmol/L (10-20); BUN (Urea Nitrogen) 34 mg/dL (9.8-20.1); Calc. Creatinine Clearance 117 mL/min (70-130); Calcium 8.5 mg/dL (7.8-10.44); Carbon Dioxide 27 mmol/L (23-31); Chloride 103 mmol/L (98-107); Estimated GFR-MDRD 85; Glucose 157 mg/dL (83-110); Potassium 3.5 mmol/L (3.5-5.1); Sodium 137 mmol/L (136-145)
[2019-09-07] MEDS: MEROPENEM 1 GM/50 ML 1 GM in Premix Bag 1 BAG IVPB SCH ×3 (05:55→22:06)
[2019-09-07] MEDS: Levothyroxine Sodium 75 MCG TAB PO SCH (05:56)
[2019-09-07] MEDS: Budesonide 0.5 MG/2 ML NEB NEB SCH ×2 (07:04→18:28)
[2019-09-07 07:19] LABS: Actual Bicarbonate (HCO3a) 26.5 mEq/L (22-28); Base Excess (BEa) 1.9 mEq/L (-2.0 to +3.0); CO2 Tension 41.5 mmHg (35.0-45.0); Calcium, Ionized 1.16 mmol/L (1.12-1.30); Carboxyhemoglobin (COHb) 1.9 gm% (0.0-3.0); Hemoglobin (Hb) 7.2 g/dL (12.0-16.0); O2 Tension (PaO2) 88.6 mmHg (> 70.0); Potassium - ABG Lab 3.35 mmol/L (3.70-5.30); Puncture Site RRA; pH, Arterial 7.42 (7.35-7.45)
[2019-09-07 07:20] LABS: ALV-art Gradient 144.725 (0-20)
[2019-09-07] MEDS: Amlodipine 5 MG TAB PO SCH (08:31)
--- NOTE | 2019-09-07 08:32 | RAD ---
RADIOGRAPH CHEST 1 VIEW: DATE: 09/07/2019 TIME: 4:31 AM HISTORY: 74-year-old female with pneumonia and respiratory failure. COMPARISON: 09/05/2019 3:17 AM FINDINGS: The endotracheal tube has been slightly retracted such that it is now 3 cm superior to the uzair in the mid thoracic trachea. Bilateral pleural effusions remain. Increased attenuation in the bilateral lower lobes are unchanged. Mild infiltrates throughout most of the right lung are unchanged . No pneumothorax. IMPRESSION: 1. Adjustment of endotracheal tube position into better location. 2. No interval change in the bilateral pleural effusions, and the pulmonary opacities.
[2019-09-07] MEDS: methylPREDNISolone Sod Succ 40 MG VIAL IVP SCH (08:41)
[2019-09-07] MEDS: Lisinopril 20 MG TAB PO SCH (08:42)
[2019-09-07] MEDS: Divalproex Sodium 125 mg Sprinkle Capsule PO SCH ×2 (08:42→21:13)
[2019-09-07] MEDS: Famotidine 20 MG TAB PO SCH ×2 (08:42→21:15)
[2019-09-07] MEDS: Morphine 2 MG/ML SYRINGE SLOW IVP PRN (09:39)
--- NOTE | 2019-09-07 10:00 | PRG ---
DATE OF SERVICE: 09/07/2019 SUBJECTIVE: A 74-year-old female who was sedated last night because of coughing and bouts of apnea. OBJECTIVE: VITAL SIGNS: Temperature 98, pulse 72, blood pressure 122/54, respiratory rate 16. I's and O's 2327 in, 2235 out. CHEST: Bilateral rhonchi and crackles. CARDIAC: Normal S1, S2. No gallops. ABDOMEN: No masses. X-ray shows questionable right-sided infiltrate. H and H are 7 and 22, white count 16,000, platelet count is 281. PO2 of 88,pco2 43 ph 7.45. Lytes are normal. ASSESSMENT: 1. 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 2. Respiratory failure, bipolar. She is on meropenem, steroids, and vancomycin. 3. Off all sedation. She is clearly not weanable at this stage. 4. Continue aggressive PT, supportive care. Discuss with family ongoing care, trach, PEG versus comfort care. One-half hour of critical time. Job ID: [id number] MTDD
[2019-09-07] MEDS: Guaifenesin DM 100-10/5 ML UDCUP PO PRN ×3 (10:01→18:27)
[2019-09-07] MEDS: Vancomycin HCl 1 GM in Premix Bag 1 BAG IVPB SCH ×2 (10:32→22:59)
--- NOTE | 2019-09-07 14:23 | PDOC.HOSPP ---
- Subjective Encounter Date: 09/07/19 Encounter Time: 12:32 Subjective: on vent, awake, not on any sedation. afebrile today, wbcs remain the same at 16.2 - Objective Vital Signs & Weight: Vital Signs (12 hours) Temp Pulse Pulse Pulse Resp BP BP 09/07/19 14:00 21 H 09/07/19 13:03 69 09/07/19 12:00 98.9 F 18 09/07/19 10:22 72 09/07/19 10:00 12 09/07/19 09:50 73 76 125/61 09/07/19 08:42 122/54 L 09/07/19 08:31 72 122/54 L 09/07/19 08:00 98.4 F 21 H 09/07/19 07:55 72 09/07/19 06:00 22 H 09/07/19 04:00 98.9 F 12 09/07/19 03:40 88 BP Pulse Ox Pulse Ox Pulse Ox 09/07/19 14:00 09/07/19 13:03 09/07/19 12:00 09/07/19 10:22 09/07/19 10:00 09/07/19 09:50 121/65 98 99 09/07/19 08:42 09/07/19 08:31 09/07/19 08:00 96 09/07/19 07:55 09/07/19 06:00 09/07/19 04:00 09/07/19 03:40 Weight Admit Weight 218 lb Weight 222 lb 10.672 oz Most Recent Monitor Data Heart Rate from ECG 70 NIBP 106/45 NIBP BP-Mean 65 Respiration from ECG 24 SpO2 97 I&O: 09/06/19 09/07/19 09/08/19 06:59 06:59 06:59 Intake Total 1935 2326.7 530 Output Total 2250 2235 951 Balance -1925 91.7 -421 Result Diagrams: 09/07/19 03:44 09/07/19 03:44 Hospitalist ROS - Medication Medications: Active Medications Generic Name Dose Route Start Last Admin Trade Name Freq PRN Reason Stop Dose Admin Acetaminophen 650 mg 08/27/19 12:11 09/06/19 11:54 Tylenol PO 650 mg Q4H PRN Administration Headache/Fever/Mild Pain (1-3) Albuterol/Ipratropium 3 ml 08/27/19 18:30 09/07/19 10:21 Duoneb NEB 3 ml [id number] TONY Administration Amlodipine Besylate 5 mg 09/04/19 09:00 09/07/19 08:31 Norvasc PO Not Given DAILY TONY Budesonide 0.5 mg 09/01/19 18:30 09/07/19 07:04 Pulmicort Neb Solution NEB 0.5 mg BID-RT TONY Administration Clonidine 0.1 mg 09/03/19 15:33 09/04/19 11:18 Catapres PO 0.1 mg Q4H PRN Administration SBP GREATER THAN 160 Divalproex Sodium 750 mg 08/30/19 21:00 09/07/19 08:42 Depakote Sprinkle PO 750 mg BID TONY Administration Enoxaparin Sodium 40 mg 08/27/19 21:00 09/06/19 21:21 Lovenox SC 40 mg 2100 TONY Administration Famotidine 20 mg 09/01/19 09:00 09/07/19 08:42 Pepcid PO 20 mg BID TONY Administration Guaifenesin/Dextromethorphan 10 ml 09/03/19 15:31 09/07/19 10:01 Robitussin Dm PO 10 ml Q4H PRN Administration Cough Hydralazine HCl 20 mg 08/31/19 14:23 09/06/19 11:55 Apresoline SLOW IVP 20 mg Q4H PRN Administration SBP >160 Sodium Chloride 1,000 mls @ 0 mls/hr 08/27/19 16:15 09/01/19 13:13 Normal Saline 0.9% IV Not Given .Q0M TONY KVO Fentanyl Citrate 2,000 mcg/ 100 mls @ 0 mls/hr 08/28/19 23:22 09/02/19 23:35 Sodium Chloride IV 09/27/19 23:22 100 mls INF TONY Administration Protocol Per Protocol Meropenem 1 gm/ Device 50 mls @ 100 mls/hr 09/06/19 14:00 09/07/19 13:34 IVPB 50 mls Q8HR TONY Administration Vancomycin HCl 1 gm/ Device 200 mls @ 200 mls/hr 09/06/19 11:00 09/07/19 10: 32 IVPB 200 mls 1100,2300 TONY Administration Levothyroxine Sodium 75 mcg 08/28/19 06:00 09/07/19 05:56 Synthroid PO 75 mcg 0600 TONY Administration Lisinopril 20 mg 08/28/19 09:00 09/07/19 08:42 Zestril PO 20 mg DAILY TONY Administration Lorazepam 2 mg 08/28/19 23:22 08/31/19 16:12 Ativan SLOW IVP 09/27/19 23:22 2 mg Q1H PRN Administration Breakthrough agitation Methylprednisolone Sodium Succinate 20 mg 09/06/19 09:00 09/07/19 08:41 Solu-Medrol IVP 20 mg DAILY TONY Administration Morphine Sulfate 2 mg 08/28/19 23:22 09/07/19 09:39 Morphine SLOW IVP 09/27/19 23:22 2 mg Q1H PRN Administration BREAKTHROUGH PAIN/Agitation Olanzapine 25 mg 08/27/19 21:00 09/06/19 21:21 Zyprexa PO 25 mg HS TONY Administration Propofol 1,000 mg 08/28/19 23:22 09/06/19 16:39 Diprivan IV 09/27/19 23:22 1,000 mg INF PRN Administration TO ACHIEVE GOAL RASS Protocol Sodium Bicarbonate 650 mg 08/30/19 12:08 08/30/19 12:14 Bicarbonate, Sodium PER TUBE 650 mg PRN PRN Administration TUBE OCCLUSION TX Sodium Chloride 10 ml 08/30/19 21:00 09/07/19 08:43 Flush - Normal Saline IVF 10 ml Q12HR TONY Administration Trazodone HCl 50 mg 09/01/19 21:00 09/06/19 21:21 Desyrel PO 50 mg HS TONY Administration - Exam General Appearance: NAD, awake alert General - other findings: on vent Eye: PERRL ENT: normocephalic atraumatic Neck: supple Heart: RRR Respiratory: CTAB, normal chest expansion Gastrointestinal: normal bowel sounds Extremities: no cyanosis Extremities - other findings: edema seems to be better today Hosp A/P - Plan Sepsis 2/2 Comm acq pneumonia b/l multilobar pneumonia Acute resp failure, requiring intubation (1) Acute hypercapnic respiratory failure Code(s): J96.02 - ACUTE RESPIRATORY FAILURE WITH HYPERCAPNIA Status: Acute Plan: Continue SIMV with current FIO2 30% (2) PNA (pneumonia) Code(s): J18.9 - PNEUMONIA, UNSPECIFIED ORGANISM Status: Acute Plan: (3) UTI (urinary tract infection) stefanie albicans u cx of - Ecoli--sesn to cefepime adn merum, (4) Acute on chronic diastolic ACC/AHA stage C congestive heart failure Code(s): I50.33 - ACUTE ON CHRONIC DIASTOLIC (CONGESTIVE) HEART FAILURE Status : Acute (5) Obesity (BMI 30.0-34.9) Code(s): E66.9 - OBESITY, UNSPECIFIED Status: Chronic (6) Schizophrenia -getting zyprexa HTN - lisionopril Hypothyroidism -- on levothyroxine Persistent fever and leukocytosis -cxr of - b/l pl effusions -sputum bernard w.. s.aureus -vanc & merum started d/t fever of 23rd. Continue Solumedrol IV Lasix 40mg PT daily metabolic alkalosis s/p diamox dose given. Full code.
[2019-09-07] MEDS: Acetaminophen 325 MG TAB PO PRN (15:03)
[2019-09-07] MEDS: Enoxaparin Sodium 40 MG/0.4 ML SYRINGE SC SCH (21:13)
[2019-09-07] MEDS: OLANZapine 5 MG TAB PO SCH (21:13)
[2019-09-07] MEDS: traZODone HCl 50 MG TAB PO SCH (21:14)
[2019-09-08] MEDS: Guaifenesin DM 100-10/5 ML UDCUP PO PRN ×2 (00:13→04:20)
[2019-09-08 04:45] LABS: #Monocytes 1.3 thou/uL (0.11-0.59); #Neutrophils 9.6 thou/uL (1.40-6.50); %Basophils 0.1 % (0.0-1.0); %Eosinophils 0.2 % (0.0-10.0); %Lymphocytes 8.6 % (21.0-51.0); %Neutrophils 80.1 % (42.0-75.0); Hemoglobin 7.2 g/dL (12.0-16.0); Mean Corpuscular HGB CONC 30.1 g/dL (32.0-36.0); Mean Corpuscular Hemoglobin 28.8 pg (27.0-31.0); Mean Corpuscular Volume 95.7 fL (78.0-98.0); Platelet Count 336 thou/uL (130-400); RBC Distribution Width 15.5 % (11.5-14.5)
[2019-09-08 05:05] LABS: Anion Gap 11 mmol/L (10-20); BUN (Urea Nitrogen) 30 mg/dL (9.8-20.1); Calc. Creatinine Clearance 118 mL/min (70-130); Calcium 8.9 mg/dL (7.8-10.44); Carbon Dioxide 28 mmol/L (23-31); Chloride 105 mmol/L (98-107); Estimated GFR-MDRD Greater than 90; Glucose 139 mg/dL (83-110); Potassium 3.6 mmol/L (3.5-5.1); Sodium 140 mmol/L (136-145)
[2019-09-08] MEDS: MEROPENEM 1 GM/50 ML 1 GM in Premix Bag 1 BAG IVPB SCH ×3 (05:14→21:23)
[2019-09-08] MEDS: Levothyroxine Sodium 75 MCG TAB PO SCH (05:15)
[2019-09-08 06:26] LABS: Lymphocytes 10 % (21-51); Monocytes 10 % (0-10); Neutrophil 80 % (42-75)
[2019-09-08] MEDS: Budesonide 0.5 MG/2 ML NEB NEB SCH ×2 (07:25→18:24)
[2019-09-08 07:36] LABS: Actual Bicarbonate (HCO3a) 27.5 mEq/L (22-28); Base Excess (BEa) 2.7 mEq/L (-2.0 to +3.0); CO2 Tension 43.5 mmHg (35.0-45.0); Calcium, Ionized 1.21 mmol/L (1.12-1.30); Carboxyhemoglobin (COHb) 0.8 gm% (0.0-3.0); Hemoglobin (Hb) 8.4 g/dL (12.0-16.0); O2 Tension (PaO2) 73.8 mmHg (> 70.0); Potassium - ABG Lab 3.62 mmol/L (3.70-5.30); pH, Arterial 7.42 (7.35-7.45)
[2019-09-08 07:38] LABS: ALV-art Gradient 157.025 (0-20); Puncture Site RBA
[2019-09-08] MEDS ORDERED: Furosemide 40 MG/4 ML VIAL SLOW IVP SCH (08:45)
--- NOTE | 2019-09-08 09:21 | PRG ---
DATE OF SERVICE: 09/08/2019 SUBJECTIVE: Noy Lara is a 74-year-old female, remains intubated in the vent, on CPAP. All sedation withheld. OBJECTIVE: GENERAL: She is awake, responsive, but extremely weak. CHEST: Extensive rhonchi bilaterally. CARDIAC: Sinus tach. ABDOMEN: Soft without any masses. LABORATORY STUDIES: White count 12,000, H and H are 7 and 23, platelet count 336. PO2 of 73, pCO2 of 40, pH of 7.42. Lytes are normal. BUN is 30, bicarb is 28. Bronch washing is growing MRSA, sensitive to the present antibiotic. ASSESSMENT: 1. MRSA tracheobronchitis, pneumonia. 2. Bipolar. 3. Morbid obesity. 4. Chronic obstructive pulmonary disease, sleep apnea. She is not weanable at this stage. Family is to make a decision regarding a trach, PEG or comfort care with extubation. Otherwise, we will continue steroids, neb treatments, antibiotics. One-half hour of critical care time. Job ID: [id number]
[2019-09-08] MEDS: Lisinopril 20 MG TAB PO SCH (09:33)
[2019-09-08] MEDS: Divalproex Sodium 125 mg Sprinkle Capsule PO SCH ×2 (09:34→21:23)
[2019-09-08] MEDS: Amlodipine 5 MG TAB PO SCH (09:34)
[2019-09-08] MEDS: Famotidine 20 MG TAB PO SCH ×2 (09:34→21:23)
[2019-09-08] MEDS: methylPREDNISolone Sod Succ 40 MG VIAL IVP SCH (09:34)
[2019-09-08] MEDS: Vancomycin HCl 1 GM in Premix Bag 1 BAG IVPB SCH (10:52)
[2019-09-08] MEDS ORDERED: VANCOMYCIN IVPB PRN (12:47)
--- NOTE | 2019-09-08 14:35 | PDOC.HOSPP ---
- Subjective Encounter Date: 09/08/19 Encounter Time: 12:45 Subjective: pt is awake and on vent. afebrile; lytes are ok. wbcs mod..high; sputum cx MRSA - Objective Vital Signs & Weight: Vital Signs (12 hours) Temp Pulse Pulse Pulse Resp BP BP 09/08/19 14:00 21 H 09/08/19 13:15 89 09/08/19 12:00 22 H 09/08/19 10:45 82 09/08/19 10:13 70 74 144/72 H 09/08/19 10:00 22 H 09/08/19 09:34 72 09/08/19 09:33 132/67 09/08/19 08:00 22 H 09/08/19 07:33 72 09/08/19 06:00 13 09/08/19 04:00 99.3 F 20 09/08/19 03:22 76 BP Pulse Ox Pulse Ox Pulse Ox 09/08/19 14:00 09/08/19 13:15 09/08/19 12:00 09/08/19 10:45 09/08/19 10:13 144/70 H 99 97 09/08/19 10:00 09/08/19 09:34 09/08/19 09:33 09/08/19 08:00 95 09/08/19 07:33 09/08/19 06:00 09/08/19 04:00 09/08/19 03:22 Weight Admit Weight 218 lb Weight 210 lb 8.663 oz Most Recent Monitor Data Heart Rate from ECG 85 NIBP 154/62 NIBP BP-Mean 92 Respiration from ECG 31 SpO2 96 I&O: 09/07/19 09/08/19 09/09/19 06:59 06:59 06:59 Intake Total 2326.7 3625 460 Output Total 2235 2796 1970 Balance 91.7 829 -1510 Result Diagrams: 09/08/19 04:15 09/08/19 04:15 Hospitalist ROS - Medication Medications: Active Medications Generic Name Dose Route Start Last Admin Trade Name Freq PRN Reason Stop Dose Admin Acetaminophen 650 mg 08/27/19 12:11 09/07/19 15:03 Tylenol PO 650 mg Q4H PRN Administration Headache/Fever/Mild Pain (1-3) Albuterol/Ipratropium 3 ml 08/27/19 18:30 09/08/19 14:00 Duoneb NEB 3 ml [id number] TONY Administration Amlodipine Besylate 5 mg 09/04/19 09:00 09/08/19 09:34 Norvasc PO 5 mg DAILY TONY Administration Budesonide 0.5 mg 09/01/19 18:30 09/08/19 07:25 Pulmicort Neb Solution NEB 0.5 mg BID-RT TONY Administration Clonidine 0.1 mg 09/03/19 15:33 09/04/19 11:18 Catapres PO 0.1 mg Q4H PRN Administration SBP GREATER THAN 160 Divalproex Sodium 750 mg 08/30/19 21:00 09/08/19 09:34 Depakote Sprinkle PO 750 mg BID TONY Administration Enoxaparin Sodium 40 mg 08/27/19 21:00 09/07/19 21:13 Lovenox SC 40 mg 2100 TONY Administration Famotidine 20 mg 09/01/19 09:00 09/08/19 09:34 Pepcid PO 20 mg BID TONY Administration Guaifenesin/Dextromethorphan 10 ml 09/03/19 15:31 09/08/19 04:20 Robitussin Dm PO 10 ml Q4H PRN Administration Cough Hydralazine HCl 20 mg 08/31/19 14:23 09/06/19 11:55 Apresoline SLOW IVP 20 mg Q4H PRN Administration SBP >160 Sodium Chloride 1,000 mls @ 0 mls/hr 08/27/19 16:15 09/01/19 13:13 Normal Saline 0.9% IV Not Given .Q0M TONY KVO Meropenem 1 gm/ Device 50 mls @ 100 mls/hr 09/06/19 14:00 09/08/19 13:23 IVPB 50 mls Q8HR TONY Administration Vancomycin HCl 1 gm/ Device 200 mls @ 200 mls/hr 09/06/19 11:00 09/08/19 10: 52 IVPB 200 mls 1100,2300 TONY Administration Levothyroxine Sodium 75 mcg 08/28/19 06:00 09/08/19 05:15 Synthroid PO 75 mcg 0600 TONY Administration Lisinopril 20 mg 08/28/19 09:00 02/25/20 09:33 Zestril PO 20 mg DAILY TONY Administration Methylprednisolone Sodium Succinate 20 mg 09/06/19 09:00 09/08/19 09:34 Solu-Medrol IVP 20 mg DAILY TONY Administration Olanzapine 25 mg 08/27/19 21:00 09/07/19 21:13 Zyprexa PO 25 mg HS TONY Administration Propofol 1,000 mg 08/28/19 23:22 09/06/19 16:39 Diprivan IV 09/27/19 23:22 1,000 mg INF PRN Administration TO ACHIEVE GOAL RASS Protocol Sodium Bicarbonate 650 mg 08/30/19 12:08 08/30/19 12:14 Bicarbonate, Sodium PER TUBE 650 mg PRN PRN Administration TUBE OCCLUSION TX Sodium Chloride 10 ml 08/30/19 21:00 09/08/19 09:58 Flush - Normal Saline IVF 10 ml Q12HR TONY Administration Sodium Chloride 10 ml 08/30/19 12:07 09/08/19 09:57 Flush - Normal Saline IVF 10 ml PRN PRN Administration Saline Flush Trazodone HCl 50 mg 09/01/19 21:00 09/07/19 21:14 Desyrel PO 50 mg HS TONY Administration - Exam General Appearance: ill appearing General - other findings: vent ENT: normocephalic atraumatic Neck: supple Heart: RRR Respiratory: normal chest expansion, no tachypnea, rales, rhonchi Gastrointestinal: soft, normal bowel sounds Neurological: cranial nerve grossly intact, no focal deficits Hosp A/P - Plan Sepsis 2/2 Comm acq pneumonia b/l multilobar pneumonia Acute resp failure, requiring intubation (1) Acute hypercapnic respiratory failure Code(s): J96.02 - ACUTE RESPIRATORY FAILURE WITH HYPERCAPNIA Status: Acute Plan: Continue SIMV with current FIO2 30% (2) PNA (pneumonia) Code(s): J18.9 - PNEUMONIA, UNSPECIFIED ORGANISM Status: Acute Plan: (3) UTI (urinary tract infection) stefanie albicans u cx of Eco--sesn to cefepime adn merum, (4) Acute on chronic diastolic ACC/AHA stage C congestive heart failure Code(s): I50.33 - ACUTE ON CHRONIC DIASTOLIC (CONGESTIVE) HEART FAILURE Status : Acute (5) Obesity (BMI 30.0-34.9) Code(s): E66.9 - OBESITY, UNSPECIFIED Status: Chronic (6) Schizophrenia -getting zyprexa HTN - lisionopril Hypothyroidism -- on levothyroxine Persistent fever and leukocytosis MRSA tracheobronchitis sputum bernard --MRSA -cxr of - b/l pl effusions -sputum bernard w.. s.aureus -vanc & merum started d/t fever of 23rd. Continue Solumedrol IV Lasix 40mg PT daily metabolic alkalosis s/p diamox dose given. trach/peg evaluation? Full code.
[2019-09-08] MEDS: Enoxaparin Sodium 40 MG/0.4 ML SYRINGE SC SCH (21:23)
[2019-09-08] MEDS: traZODone HCl 50 MG TAB PO SCH (21:23)
[2019-09-08] MEDS: OLANZapine 5 MG TAB PO SCH (21:23)
[2019-09-08] MEDS: Acetaminophen 325 MG TAB PO PRN (21:36)
[2019-09-08 22:18] LABS: Vancomycin, Trough 21.8 ug/mL
[2019-09-08] MEDS: Vancomycin HCl 750 MG in Sodium Chloride 0.9% 250 ML 250 ML IVPB SCH (23:22)
[2019-09-09] MEDS: hydrALAZINE 20 MG/ML VIAL SLOW IVP PRN (03:37)
[2019-09-09 04:23] LABS: Band 7 % (5-11); Hemoglobin 7.6 g/dL (12.0-16.0); Lymphocytes 9 % (21-51); MDiff Complete? YES; Mean Corpuscular HGB CONC 31.6 g/dL (32.0-36.0); Mean Corpuscular Hemoglobin 30.1 pg (27.0-31.0); Mean Corpuscular Volume 95.2 fL (78.0-98.0); Metamyelocyte 1 % (0-0); Monocytes 9 % (0-10); Neutrophil 74 % (42-75); Platelet Count 426 thou/uL (130-400); Platelet Morphology Comment Appears Increased; RBC Distribution Width 15.4 % (11.5-14.5); Red Blood Cell (RBC) Count 2.53 mill/uL (4.20-5.40); White Blood Cell (WBC) Count 10.5 thou/uL (4.8-10.8)
[2019-09-09 04:36] LABS: Anion Gap 12 mmol/L (10-20); BUN (Urea Nitrogen) 28 mg/dL (9.8-20.1); Calc. Creatinine Clearance 113 mL/min (70-130); Carbon Dioxide 30 mmol/L (23-31); Chloride 104 mmol/L (98-107); Estimated GFR-MDRD 86; Glucose 151 mg/dL (83-110); Potassium 3.5 mmol/L (3.5-5.1); Sodium 142 mmol/L (136-145)
[2019-09-09] MEDS: Levothyroxine Sodium 75 MCG TAB PO SCH (05:19)
[2019-09-09] MEDS: MEROPENEM 1 GM/50 ML 1 GM in Premix Bag 1 BAG IVPB SCH ×3 (06:17→22:05)
[2019-09-09] MEDS: Budesonide 0.5 MG/2 ML NEB NEB SCH ×2 (07:31→18:44)
[2019-09-09 08:12] LABS: Actual Bicarbonate (HCO3a) 29.3 mEq/L (22-28); CO2 Tension 42.5 mmHg (35.0-45.0); Carboxyhemoglobin (COHb) 1.6 gm% (0.0-3.0); Hemoglobin (Hb) 8.1 g/dL (12.0-16.0); O2 Tension (PaO2) 80.1 mmHg (> 70.0); pH, Arterial 7.46 (7.35-7.45)
[2019-09-09 08:15] LABS: ALV-art Gradient 151.975 (0-20); Puncture Site LR
[2019-09-09] MEDS: Famotidine 20 MG TAB PO SCH ×2 (09:04→20:39)
[2019-09-09] MEDS: Lisinopril 20 MG TAB PO SCH (09:04)
[2019-09-09] MEDS: Amlodipine 5 MG TAB PO SCH (09:04)
[2019-09-09] MEDS: methylPREDNISolone Sod Succ 40 MG VIAL IVP SCH (09:05)
[2019-09-09] MEDS: Divalproex Sodium 125 mg Sprinkle Capsule PO SCH (09:05)
[2019-09-09] MEDS: Scopolamine 1.5 mg/72 hour Patch TD SCH (09:06)
--- NOTE | 2019-09-09 09:13 | PRG ---
DATE OF SERVICE: 09/09/2019 SUBJECTIVE: Noy Lara is a 74-year-old morbidly obese female, who remains intubated on the vent without any sedation. OBJECTIVE: VITAL SIGNS: Pulse is 74, blood pressure 140/80, saturations are 98%, and respiratory rate is 19. I's and O's are even. CHEST: Decreased breath sounds. Minimal rhonchi. CARDIAC: Normal S1 and S2. No gallops. ABDOMEN: No masses. LABORATORY DATA: White count 10,000, H and H of 7 and 24, and platelet count is normal. PO2 is 80, pCO2 is 42, and pH is 7.46. Lytes are normal. ASSESSMENT: 1. Respiratory failure. 2. Morbid obesity. 3. Congestive heart failure. 4. Sleep apnea. 5. Tracheobronchial infection pneumonia. PLAN: She is not weanable without a trach and a PEG. Family is to make a decision today regarding comfort care versus a trach and a PEG and maybe long-term placement if they wish to do so. In the meantime, I will continue neb treatments, broad-spectrum antibiotics, supportive care. Once again, we will discuss with family on arrival, their options. One-half hour of critical care time. Job ID: [id number]
[2019-09-09] MEDS: Vancomycin HCl 750 MG in Sodium Chloride 0.9% 250 ML 250 ML IVPB SCH ×2 (12:48→22:06)
[2019-09-09] MEDS ORDERED: Morphine 2 MG/ML SYRINGE SLOW IVP PRN ×2 (13:25→14:25)
[2019-09-09] MEDS ORDERED: Lorazepam 2 MG/ML VIAL SLOW IVP PRN (13:28)
--- NOTE | 2019-09-09 16:10 | PDOC.HOSPP ---
- Subjective Encounter Date: 09/09/19 Encounter Time: 09:15 Subjective: on vent, plan for extubation today. Palliative on board, DNR status, comfort care approach after abx, no PEG or trach. - Objective Vital Signs & Weight: Vital Signs (12 hours) Temp Pulse Pulse Pulse Resp BP BP 09/09/19 14:28 70 132/63 09/09/19 12:00 98.8 F 09/09/19 11:18 78 156/69 H 09/09/19 09:04 76 124/53 L 09/09/19 09:01 76 69 148/58 H 09/09/19 07:31 87 165/67 H 09/09/19 07:20 98.9 F 09/09/19 06:00 10 L BP Pulse Ox Pulse Ox 09/09/19 14:28 09/09/19 12:00 09/09/19 11:18 09/09/19 09:04 09/09/19 09:01 124/53 L 99 99 09/09/19 07:31 09/09/19 07:20 09/09/19 06:00 Weight Admit Weight 218 lb Weight 203 lb 11.314 oz Most Recent Monitor Data Heart Rate from ECG 76 NIBP 124/69 NIBP BP-Mean 87 Respiration from ECG 13 SpO2 99 I&O: 09/08/19 09/09/19 09/10/19 06:59 06:59 06:59 Intake Total 3625 2992 590 Output Total 2796 2955 445 Balance 829 37 145 Result Diagrams: 09/09/19 03:35 09/09/19 03:35 Hospitalist ROS - Medication Medications: Active Medications Generic Name Dose Route Start Last Admin Trade Name Freq PRN Reason Stop Dose Admin Acetaminophen 650 mg 08/27/19 12:11 09/08/19 21:36 Tylenol PO 650 mg Q4H PRN Administration Headache/Fever/Mild Pain (1-3) Albuterol/Ipratropium 3 ml 08/27/19 18:30 09/09/19 14:34 Duoneb NEB Not Given [id number] TONY Amlodipine Besylate 5 mg 09/04/19 09:00 09/09/19 09:04 Norvasc PO 5 mg DAILY TONY Administration Budesonide 0.5 mg 09/01/19 18:30 09/09/19 07:31 Pulmicort Neb Solution NEB 0.5 mg BID-RT TONY Administration Clonidine 0.1 mg 09/03/19 15:33 09/04/19 11:18 Catapres PO 0.1 mg Q4H PRN Administration SBP GREATER THAN 160 Enoxaparin Sodium 40 mg 08/27/19 21:00 09/08/19 21:23 Lovenox SC 40 mg 2100 TONY Administration Famotidine 20 mg 09/01/19 09:00 09/09/19 09:04 Pepcid PO 20 mg BID TONY Administration Guaifenesin/Dextromethorphan 10 ml 09/03/19 15:31 09/08/19 04:20 Robitussin Dm PO 10 ml Q4H PRN Administration Cough Hydralazine HCl 20 mg 08/31/19 14:23 09/09/19 03:37 Apresoline SLOW IVP 20 mg Q4H PRN Administration SBP >160 Sodium Chloride 1,000 mls @ 0 mls/hr 08/27/19 16:15 09/01/19 13:13 Normal Saline 0.9% IV Not Given .Q0M TONY KVO Meropenem 1 gm/ Device 50 mls @ 100 mls/hr 09/06/19 14:00 09/09/19 15:07 IVPB 50 mls Q8HR TONY Administration Vancomycin HCl 750 mg/ Sodium 250 mls @ 250 mls/hr 09/08/19 23:00 09/09/19 12 :48 Chloride IVPB 250 mls 1100,2300 TONY Administration Levothyroxine Sodium 75 mcg 08/28/19 06:00 09/09/19 05:19 Synthroid PO 75 mcg 0600 TONY Administration Lisinopril 20 mg 08/28/19 09:00 09/09/19 09:04 Zestril PO 20 mg DAILY TONY Administration Methylprednisolone Sodium Succinate 20 mg 09/06/19 09:00 09/09/19 09:05 Solu-Medrol IVP 20 mg DAILY TONY Administration Olanzapine 25 mg 08/27/19 21:00 09/08/19 21:23 Zyprexa PO 25 mg HS TONY Administration Propofol 1,000 mg 08/28/19 23:22 09/06/19 16:39 Diprivan IV 09/27/19 23:22 1,000 mg INF PRN Administration TO ACHIEVE GOAL RASS Protocol Scopolamine 1.5 mg 09/09/19 08:30 09/09/19 09:06 Transderm Scop TD 1.5 mg Q3D TONY Administration Sodium Bicarbonate 650 mg 08/30/19 12:08 08/30/19 12:14 Bicarbonate, Sodium PER TUBE 650 mg PRN PRN Administration TUBE OCCLUSION TX Sodium Chloride 10 ml 08/30/19 21:00 09/09/19 09:08 Flush - Normal Saline IVF 10 ml Q12HR TONY Administration Sodium Chloride 10 ml 08/30/19 12:07 09/08/19 09:57 Flush - Normal Saline IVF 10 ml PRN PRN Administration Saline Flush Trazodone HCl 50 mg 09/01/19 21:00 09/08/19 21:23 Desyrel PO 50 mg HS TONY Administration - Exam General Appearance: NAD, awake alert Eye: PERRL ENT: normocephalic atraumatic Neck: supple Heart: RRR Respiratory: CTAB Gastrointestinal: normal bowel sounds Neurological: cranial nerve grossly intact, no focal deficits Hosp A/P - Plan Sepsis 2/2 Comm acq pneumonia b/l multilobar pneumonia Acute resp failure, requiring intubation (1) Acute hypercapnic respiratory failure Code(s): J96.02 - ACUTE RESPIRATORY FAILURE WITH HYPERCAPNIA Status: Acute Plan: Continue SIMV with current FIO2 30% (2) PNA (pneumonia) Code(s): J18.9 - PNEUMONIA, UNSPECIFIED ORGANISM Status: Acute Plan: (3) UTI (urinary tract infection) stefanie albicans u cx of - Ecoli--sesn to cefepime adn merum, (4) Acute on chronic diastolic ACC/AHA stage C congestive heart failure Code(s): I50.33 - ACUTE ON CHRONIC DIASTOLIC (CONGESTIVE) HEART FAILURE Status : Acute (5) Obesity (BMI 30.0-34.9) Code(s): E66.9 - OBESITY, UNSPECIFIED Status: Chronic (6) Schizophrenia -getting zyprexa HTN - lisionopril Hypothyroidism -- on levothyroxine Persistent fever and leukocytosis MRSA tracheobronchitis sputum bernard --MRSA -cxr of - b/l pl effusions -sputum bernard w.. s.aureus -vanc & merum started d/t fever of . Continue Solumedrol IV Lasix 40mg PT daily Palliative on board, DNR status, comfort care approach after abx, no PEG or trach. Can transfer to floor.
[2019-09-09] MEDS: Valproate Sodium 250 mg/5 ml UD Cup PO SCH (20:39)
[2019-09-09] MEDS: OLANZapine 5 MG TAB PO SCH (20:40)
[2019-09-09] MEDS: traZODone HCl 50 MG TAB PO SCH (20:40)
[2019-09-09] MEDS: Acetaminophen 325 MG TAB PO PRN (20:42)
[2019-09-09] MEDS: Enoxaparin Sodium 40 MG/0.4 ML SYRINGE SC SCH (22:05)
[2019-09-10] MEDS: MEROPENEM 1 GM/50 ML 1 GM in Premix Bag 1 BAG IVPB SCH ×3 (06:05→22:31)
[2019-09-10] MEDS: Levothyroxine Sodium 75 MCG TAB PO SCH (06:05)
[2019-09-10 07:08] LABS: Mean Corpuscular HGB CONC 31.1 g/dL (32.0-36.0); Mean Corpuscular Volume 96.2 fL (78.0-98.0); Mean Platelet Volume 7.5 fL (7.4-10.4); Platelet Count 419 thou/uL (130-400); RBC Distribution Width 15.5 % (11.5-14.5); Red Blood Cell (RBC) Count 2.66 mill/uL (4.20-5.40); White Blood Cell (WBC) Count 8.9 thou/uL (4.8-10.8)
[2019-09-10] MEDS: Budesonide 0.5 MG/2 ML NEB NEB SCH ×2 (07:16→18:23)
[2019-09-10 07:18] LABS: Anion Gap 14 mmol/L (10-20); BUN (Urea Nitrogen) 26 mg/dL (9.8-20.1); Calc. Creatinine Clearance 118 mL/min (70-130); Calcium 8.6 mg/dL (7.8-10.44); Carbon Dioxide 26 mmol/L (23-31); Chloride 109 mmol/L (98-107); Estimated GFR-MDRD Greater than 90; Glucose 127 mg/dL (83-110); Potassium 3.7 mmol/L (3.5-5.1); Sodium 145 mmol/L (136-145)
[2019-09-10 09:24] LABS: Band 7 % (5-11); Hypochromia SLIGHT = 6-15 cells (100X) (0-5/hpf); Lymphocytes 18 % (21-51); MDiff Complete? YES; Monocytes 8 % (0-10); Myelocyte 1 % (0-0); Neutrophil 66 % (42-75); Ovalocytes SLIGHT = 2-5 cells (100X) (0-1/hpf); Platelet Morphology Comment Appears Increased; Polychromasia SLIGHT = 2-3 cells (100X) (0-2/hpf)
--- NOTE | 2019-09-10 09:24 | PRG ---
DATE OF SERVICE: 09/10/2019 SUBJECTIVE: Noy Lara was extubated yesterday. Family has made her DNR. Post extubation this morning, she is awake, alert, and responsive. OBJECTIVE: VITAL SIGNS: Pulse 72, blood pressure , and saturations are 88 on 2 L. CHEST: Decreased breath sounds. Bilateral rhonchi. CARDIAC: Normal S1 and S2. No gallops. ABDOMEN: No masses. LABORATORY DATA: White count 8000, H and H are 8 and 27. Lytes are normal. IMPRESSION: 1. Respiratory failure. 2. Morbid obesity. 3. Sleep apnea. 4. Congestive heart failure. PLAN: We are going to discontinue daily lab on the patient. Family wants to continue antibiotics. We are going to transfer her out of the ICU to an unmonitored bed, comfort care. She may need Speech to see whether she can swallow again diet farley. She is still DNR. Prognosis still remains guarded. We are going to continue all her antibiotics, etc. Job ID: [id number]
[2019-09-10] MEDS: Amlodipine 5 MG TAB PO SCH (09:27)
[2019-09-10] MEDS: Lisinopril 20 MG TAB PO SCH (09:27)
[2019-09-10] MEDS: Valproate Sodium 250 mg/5 ml UD Cup PO SCH ×2 (09:28→21:08)
[2019-09-10] MEDS: Famotidine 20 MG TAB PO SCH ×2 (09:28→21:17)
[2019-09-10] MEDS: methylPREDNISolone Sod Succ 40 MG VIAL IVP SCH (09:29)
[2019-09-10] MEDS: Bacteriostatic Water 30 ML VIAL FS PRN (09:41)
[2019-09-10 10:45] LABS: Vancomycin, Trough 20.7 ug/mL
[2019-09-10] MEDS ORDERED: Vancomycin HCl 500 MG in Sodium Chloride 0.9% 250 ML 250 ML IVPB SCH (11:00)
--- NOTE | 2019-09-10 13:37 | PDOC.HOSPP ---
- Subjective Encounter Date: 09/10/19 Encounter Time: 11:50 Subjective: family at bedside, she is alert and having some po soft diet. ok to the floor. comfort care. - Objective Vital Signs & Weight: Vital Signs (12 hours) Temp Pulse Resp BP Pulse Ox 09/10/19 12:00 98.5 F 09/10/19 10:28 72 30 H 94 L 09/10/19 09:27 74 117/61 09/10/19 08:00 98.5 F 90 L 09/10/19 07:17 94 L 09/10/19 07:15 74 32 H 94 L 09/10/19 04:00 97.7 F 09/10/19 02:08 66 24 H 97 Weight Admit Weight 218 lb Weight 203 lb 11.314 oz Most Recent Monitor Data Heart Rate from ECG 79 NIBP 174/87 NIBP BP-Mean 116 Respiration from ECG 25 SpO2 89 I&O: 09/09/19 09/10/19 09/11/19 06:59 06:59 06:59 Intake Total 2992 1730 Output Total 2955 1035 218 Balance 37 695 -218 Result Diagrams: 09/10/19 06:51 09/10/19 06:51 Hospitalist ROS - Medication Medications: Active Medications Generic Name Dose Route Start Last Admin Trade Name Freq PRN Reason Stop Dose Admin Acetaminophen 650 mg 08/27/19 12:11 09/09/19 20:42 Tylenol PO 650 mg Q4H PRN Administration Headache/Fever/Mild Pain (1-3) Albuterol/Ipratropium 3 ml 08/27/19 18:30 09/10/19 10:28 Duoneb NEB 3 ml [id number] TONY Administration Amlodipine Besylate 5 mg 09/04/19 09:00 09/10/19 09:27 Norvasc PO 5 mg DAILY TONY Administration Budesonide 0.5 mg 09/01/19 18:30 09/10/19 07:16 Pulmicort Neb Solution NEB 0.5 mg BID-RT TONY Administration Clonidine 0.1 mg 09/03/19 15:33 09/04/19 11:18 Catapres PO 0.1 mg Q4H PRN Administration SBP GREATER THAN 160 Enoxaparin Sodium 40 mg 08/27/19 21:00 09/09/19 22:05 Lovenox SC 40 mg 2100 TONY Administration Famotidine 20 mg 09/01/19 09:00 09/10/19 09:28 Pepcid PO 20 mg BID TONY Administration Guaifenesin/Dextromethorphan 10 ml 09/03/19 15:31 09/08/19 04:20 Robitussin Dm PO 10 ml Q4H PRN Administration Cough Hydralazine HCl 20 mg 08/31/19 14:23 09/09/19 03:37 Apresoline SLOW IVP 20 mg Q4H PRN Administration SBP >160 Sodium Chloride 1,000 mls @ 0 mls/hr 08/27/19 16:15 09/01/19 13:13 Normal Saline 0.9% IV Not Given .Q0M TONY KVO Meropenem 1 gm/ Device 50 mls @ 100 mls/hr 09/06/19 14:00 09/10/19 06:05 IVPB 50 mls Q8HR TONY Administration Vancomycin HCl 500 mg/ Sodium 250 mls @ 250 mls/hr 09/10/19 11:00 09/10/19 11 :53 Chloride IVPB 250 mls 1100,2300 TONY Administration Levothyroxine Sodium 75 mcg 08/28/19 06:00 09/10/19 06:05 Synthroid PO 75 mcg 0600 TONY Administration Lisinopril 20 mg 08/28/19 09:00 09/10/19 09:27 Zestril PO 20 mg DAILY TONY Administration Methylprednisolone Sodium Succinate 20 mg 09/06/19 09:00 09/10/19 09:29 Solu-Medrol IVP 20 mg DAILY TONY Administration Olanzapine 25 mg 08/27/19 21:00 09/09/19 20:40 Zyprexa PO 25 mg HS TONY Administration Scopolamine 1.5 mg 09/09/19 08:30 09/09/19 09:06 Transderm Scop TD 1.5 mg Q3D TONY Administration Sodium Bicarbonate 650 mg 08/30/19 12:08 08/30/19 12:14 Bicarbonate, Sodium PER TUBE 650 mg PRN PRN Administration TUBE OCCLUSION TX Sodium Chloride 10 ml 08/30/19 21:00 09/10/19 09:41 Flush - Normal Saline IVF 10 ml Q12HR TONY Administration Sodium Chloride 10 ml 08/30/19 12:07 09/08/19 09:57 Flush - Normal Saline IVF 10 ml PRN PRN Administration Saline Flush Sterile Water 1 ml 09/03/19 17:00 09/10/19 09:41 Bacteriostatic Water FS 1 ml PRN PRN Administration RECONSTITUTION Trazodone HCl 50 mg 09/01/19 21:00 09/09/19 20:40 Desyrel PO 50 mg HS TONY Administration Valproic Acid 750 mg 09/09/19 21:00 09/10/19 09:28 Depakene Liquid PO 750 mg BID TONY Administration - Exam General Appearance: NAD, awake alert Eye: PERRL ENT: normocephalic atraumatic Neck: supple Heart: RRR Respiratory: CTAB Gastrointestinal: normal bowel sounds Hosp A/P - Plan Sepsis 2/2 Comm acq pneumonia b/l multilobar pneumonia Acute resp failure, requiring intubation (1) Acute hypercapnic respiratory failure Code(s): J96.02 - ACUTE RESPIRATORY FAILURE WITH HYPERCAPNIA Status: Acute Plan: Continue SIMV with current FIO2 30% (2) PNA (pneumonia) Code(s): J18.9 - PNEUMONIA, UNSPECIFIED ORGANISM Status: Acute Plan: (3) UTI (urinary tract infection) stefanie albicans u cx of Ecoli--sesn to cefepime adn merum, (4) Acute on chronic diastolic ACC/AHA stage C congestive heart failure Code(s): I50.33 - ACUTE ON CHRONIC DIASTOLIC (CONGESTIVE) HEART FAILURE Status : Acute (5) Obesity (BMI 30.0-34.9) Code(s): E66.9 - OBESITY, UNSPECIFIED Status: Chronic (6) Schizophrenia -getting zyprexa HTN - lisionopril Hypothyroidism -- on levothyroxine Persistent fever and leukocytosis MRSA tracheobronchitis sputum bernard --MRSA -cxr of - b/l pl effusions -sputum bernard w.. s.aureus -vanc & merum started d/t fever of . Continue Solumedrol IV Lasix 40mg PT daily Palliative on board, DNR status, comfort care approach after abx, no PEG or trach. Can transfer to floor. Mecha.soft diet.
[2019-09-10] MEDS: Enoxaparin Sodium 40 MG/0.4 ML SYRINGE SC SCH (21:10)
[2019-09-10] MEDS: OLANZapine 5 MG TAB PO SCH (21:12)
[2019-09-10] MEDS: traZODone HCl 50 MG TAB PO SCH (21:17)
[2019-09-10] MEDS: Sodium Chloride 0.9% 1,000 ML IV SCH (22:40)
[2019-09-10] MEDS ORDERED: Vancomycin HCl 500 MG in Sodium Chloride 0.9% 100 ML IVPB SCH (23:00)
[2019-09-11] MEDS: hydrALAZINE 20 MG/ML VIAL SLOW IVP PRN (04:27)
[2019-09-11] MEDS: MEROPENEM 1 GM/50 ML 1 GM in Premix Bag 1 BAG IVPB SCH (05:45)
[2019-09-11] MEDS: Levothyroxine Sodium 75 MCG TAB PO SCH (06:08)
[2019-09-11] MEDS: Budesonide 0.5 MG/2 ML NEB NEB SCH ×2 (07:53→19:29)
[2019-09-11] MEDS: Amlodipine 5 MG TAB PO SCH (08:55)
[2019-09-11] MEDS: Lisinopril 20 MG TAB PO SCH (08:56)
[2019-09-11] MEDS: Famotidine 20 MG TAB PO SCH ×2 (08:56→21:09)
[2019-09-11] MEDS: methylPREDNISolone Sod Succ 40 MG VIAL IVP SCH (09:01)
[2019-09-11] MEDS: Valproate Sodium 250 mg/5 ml UD Cup PO SCH ×2 (09:03→21:07)
--- NOTE | 2019-09-11 09:11 | PRG ---
DATE OF SERVICE: 09/11/2019 SUBJECTIVE: Noy Lara who is a DNR, a 74-year-old bipolar female. This morning, she is awake, alert, and responsive. She is extubated with progressive respiratory failure. No trach and no PEG as per the family. To my surprise, she is doing better post extubation. Awake, alert, responsive. In fact, ate breakfast this morning. OBJECTIVE: VITAL SIGNS: Temperature 97, pulse 80, respirations 24, temperature 98.2, blood pressure 133/62. CHEST: Decreased breath sounds, no wheezing. CARDIAC: Normal S1, S2. No gallops. ASSESSMENT: Tracheobronchitis, MRSA colonization morbid obesity, sleep apnea, bipolar. PLAN: We will switch her to oral antibiotics today, eventually placement. Job ID: [id number]
[2019-09-11] MEDS: Doxycycline 100 MG CAP PO SCH ×2 (10:15→21:09)
--- NOTE | 2019-09-11 12:51 | PDOC.HOSPP ---
- Subjective Encounter Date: 09/11/19 Encounter Time: 10:10 Subjective: sitting and able tos ay few words, appear comfortable. no family at bedside. - Objective Vital Signs & Weight: Vital Signs (12 hours) Temp Pulse Resp BP BP Pulse Ox 09/11/19 11:34 97.5 F L 89 23 H 149/65 H 92 L 09/11/19 11:00 70 18 09/11/19 08:56 133/62 09/11/19 08:55 80 92 L 09/11/19 08:43 97.4 F L 80 24 H 133/62 92 L 09/11/19 07:44 70 18 09/11/19 05:05 92 16 146/65 H 09/11/19 05:03 146/65 H 09/11/19 04:27 65 198/100 H 09/11/19 04:21 97.7 F 65 16 198/100 H 95 09/11/19 02:17 77 18 94 L Weight Admit Weight 218 lb Weight 203 lb 11.314 oz Most Recent Monitor Data Heart Rate from ECG 79 NIBP 125/69 NIBP BP-Mean 87 Respiration from ECG 29 SpO2 91 I&O: 09/10/19 09/11/19 09/12/19 06:59 06:59 06:59 Intake Total 1730 850 Output Total 1035 403 Balance 695 447 Result Diagrams: 09/10/19 06:51 09/10/19 06:51 Hospitalist ROS - Medication Medications: Active Medications Generic Name Dose Route Start Last Admin Trade Name Freq PRN Reason Stop Dose Admin Acetaminophen 650 mg 08/27/19 12:11 09/09/19 20:42 Tylenol PO 650 mg Q4H PRN Administration Headache/Fever/Mild Pain (1-3) Albuterol/Ipratropium 3 ml 08/27/19 18:30 09/11/19 11:00 Duoneb NEB 3 ml [id number] TONY Administration Amlodipine Besylate 5 mg 09/04/19 09:00 09/11/19 08:55 Norvasc PO 5 mg DAILY TONY Administration Budesonide 0.5 mg 09/01/19 18:30 09/11/19 07:53 Pulmicort Neb Solution NEB 0.5 mg BID-RT TONY Administration Clonidine 0.1 mg 09/03/19 15:33 09/04/19 11:18 Catapres PO 0.1 mg Q4H PRN Administration SBP GREATER THAN 160 Doxycycline Hyclate 100 mg 09/11/19 09:00 09/11/19 10:15 Vibramycin PO 09/18/19 09:01 100 mg BID TONY Administration Enoxaparin Sodium 40 mg 08/27/19 21:00 09/10/19 21:10 Lovenox SC 40 mg 2100 TONY Administration Famotidine 20 mg 09/01/19 09:00 09/11/19 08:56 Pepcid PO 20 mg BID TONY Administration Guaifenesin/Dextromethorphan 10 ml 09/03/19 15:31 09/08/19 04:20 Robitussin Dm PO 10 ml Q4H PRN Administration Cough Hydralazine HCl 20 mg 08/31/19 14:23 09/11/19 04:27 Apresoline SLOW IVP 20 mg Q4H PRN Administration SBP >160 Sodium Chloride 1,000 mls @ 0 mls/hr 08/27/19 16:15 09/10/19 22:40 Normal Saline 0.9% IV 1,000 mls .Q0M TONY Administration KVO Levothyroxine Sodium 75 mcg 08/28/19 06:00 09/11/19 06:08 Synthroid PO 75 mcg 0600 TONY Administration Lisinopril 20 mg 08/28/19 09:00 09/11/19 08:56 Zestril PO 20 mg DAILY TONY Administration Olanzapine 25 mg 08/27/19 21:00 09/10/19 21:12 Zyprexa PO 25 mg HS TONY Administration Scopolamine 1.5 mg 09/09/19 08:30 09/09/19 09:06 Transderm Scop TD 1.5 mg Q3D TONY Administration Sodium Bicarbonate 650 mg 08/30/19 12:08 08/30/19 12:14 Bicarbonate, Sodium PER TUBE 650 mg PRN PRN Administration TUBE OCCLUSION TX Sodium Chloride 10 ml 08/30/19 21:00 09/11/19 09:03 Flush - Normal Saline IVF 10 ml Q12HR TONY Administration Sodium Chloride 10 ml 08/30/19 12:07 09/11/19 04:31 Flush - Normal Saline IVF 10 ml PRN PRN Administration Saline Flush Sterile Water 1 ml 09/03/19 17:00 09/10/19 09:41 Bacteriostatic Water FS 1 ml PRN PRN Administration RECONSTITUTION Trazodone HCl 50 mg 09/01/19 21:00 09/10/19 21:17 Desyrel PO 50 mg HS TONY Administration Valproic Acid 750 mg 09/09/19 21:00 09/11/19 09:03 Depakene Liquid PO 750 mg BID TONY Administration - Exam General Appearance: NAD, awake alert Eye: PERRL ENT: normocephalic atraumatic Neck: supple Heart: RRR Respiratory: CTAB Gastrointestinal: normal bowel sounds Hosp A/P - Plan Sepsis 2/2 Comm acq pneumonia b/l multilobar pneumonia Acute resp failure, requiring intubation (1) Acute hypercapnic respiratory failure Code(s): J96.02 - ACUTE RESPIRATORY FAILURE WITH HYPERCAPNIA Status: Acute Plan: Continue SIMV with current FIO2 30% (2) PNA (pneumonia) Code(s): J18.9 - PNEUMONIA, UNSPECIFIED ORGANISM Status: Acute Plan: (3) UTI (urinary tract infection) stefanie albicans u cx of - Ecoli--sesn to cefepime adn merum, (4) Acute on chronic diastolic ACC/AHA stage C congestive heart failure Code(s): I50.33 - ACUTE ON CHRONIC DIASTOLIC (CONGESTIVE) HEART FAILURE Status : Acute (5) Obesity (BMI 30.0-34.9) Code(s): E66.9 - OBESITY, UNSPECIFIED Status: Chronic (6) Schizophrenia -getting zyprexa HTN - lisionopril Hypothyroidism -- on levothyroxine Persistent fever and leukocytosis MRSA tracheobronchitis sputum bernard --MRSA -cxr of - b/l pl effusions -sputum bernard w.. s.aureus -vanc & merum started d/t fever of rd. --------switched to doxy. Palliative on board, no PEG or trach. Mecha.soft diet. DNR comfort care approach.
[2019-09-11] MEDS: traZODone HCl 50 MG TAB PO SCH (21:09)
[2019-09-11] MEDS: Enoxaparin Sodium 40 MG/0.4 ML SYRINGE SC SCH (21:09)
[2019-09-11] MEDS: OLANZapine 5 MG TAB PO SCH (21:09)
[2019-09-12] MEDS: Lorazepam 2 MG/ML VIAL SLOW IVP PRN (01:32)
[2019-09-12] MEDS: Sodium Chloride 0.9% 1,000 ML IV SCH (01:57)
[2019-09-12] MEDS: Levothyroxine Sodium 75 MCG TAB PO SCH (06:29)
[2019-09-12] MEDS: Budesonide 0.5 MG/2 ML NEB NEB SCH ×2 (08:14→19:23)
[2019-09-12] MEDS: predniSONE 20 MG TAB PO SCH (08:52)
[2019-09-12] MEDS: Amlodipine 5 MG TAB PO SCH (08:54)
[2019-09-12] MEDS: Lisinopril 20 MG TAB PO SCH (08:54)
[2019-09-12] MEDS: Famotidine 20 MG TAB PO SCH ×2 (08:54→20:27)
[2019-09-12] MEDS: Scopolamine 1.5 mg/72 hour Patch TD SCH (08:55)
[2019-09-12] MEDS: Doxycycline 100 MG CAP PO SCH ×2 (08:56→20:26)
[2019-09-12] MEDS: Valproate Sodium 250 mg/5 ml UD Cup PO SCH ×2 (09:14→21:00)
--- NOTE | 2019-09-12 12:20 | PDOC.HOSPP ---
- Subjective Encounter Date: 09/12/19 Encounter Time: 12:05 Subjective: f/u for tracheobronchitis and colonized with MRSA on current Doxycycline. Stable per nursing and remains on O2 @ 2L/min NC. More alert and interactive per family at bedside. - Objective Vital Signs & Weight: Vital Signs (12 hours) Temp Pulse Resp BP BP Pulse Ox 09/12/19 11:40 98.7 F 74 24 H 154/65 H 92 L 09/12/19 08:54 76 132/71 09/12/19 08:35 97.5 F L 76 20 132/71 92 L 09/12/19 04:00 98.8 F 87 20 143/65 H 94 L 09/12/19 02:54 16 92 L 09/12/19 02:50 84 16 92 L Weight Admit Weight 218 lb Weight 210 lb Most Recent Monitor Data Heart Rate from ECG 79 NIBP 125/69 NIBP BP-Mean 87 Respiration from ECG 29 SpO2 91 I&O: 09/11/19 09/12/19 09/13/19 06:59 06:59 06:59 Intake Total 850 100 Output Total 403 Balance 447 100 Result Diagrams: 09/10/19 06:51 09/10/19 06:51 Additional Labs: Microbiology 08/28/19 02:32 Sputum Respiratory Culture - Final 08/27/19 10:24 Urine canela catheter Urine Culture - Final Escherichia coli 08/27/19 10:14 Venous blood - Right Hand Blood Culture - Final NO GROWTH IN 5 DAYS 08/27/19 10:14 Venous blood - Right Arm Blood Culture - Final NO GROWTH IN 5 DAYS 08/27/19 09:53 Nasal swab Influenza Types A,B Direct EIA - Final Laboratory Tests 08/29/19 08/30/19 08/31/19 04:05 03:39 03:36 WBC 14.2 H 14.9 H 14.0 H Hgb 8.1 L 8.8 L 8.7 L Plt Count 384 475 H 469 H Band Neuts % (Manual) 28 H 19 H 19 H Vancomycin Trough 09/01/19 09/02/19 09/06/19 03:30 03:30 03:43 WBC 14.2 H 16.0 H 16.7 H Hgb 8.8 L 8.6 L 7.6 L Plt Count 421 H 402 H Band Neuts % (Manual) 19 H Vancomycin Trough 09/07/19 09/08/19 09/08/19 03:44 04:15 21:54 WBC 16.2 H 12.0 H Hgb 7.0 L 7.2 L Plt Count Band Neuts % (Manual) Vancomycin Trough 21.8 09/09/19 09/10/19 03:35 10:04 WBC 10.5 Hgb 7.6 L Plt Count Band Neuts % (Manual) Vancomycin Trough 20.7 Hospitalist ROS - Medication Medications: Active Medications Generic Name Dose Route Start Last Admin Trade Name Freq PRN Reason Stop Dose Admin Acetaminophen 650 mg 08/27/19 12:11 09/09/19 20:42 Tylenol PO 650 mg Q4H PRN Administration Headache/Fever/Mild Pain (1-3) Albuterol/Ipratropium 3 ml 08/27/19 18:30 09/12/19 11:14 Duoneb NEB Not Given [id number] TONY Amlodipine Besylate 5 mg 09/04/19 09:00 09/12/19 08:54 Norvasc PO 5 mg DAILY TONY Administration Budesonide 0.5 mg 09/01/19 18:30 09/12/19 08:14 Pulmicort Neb Solution NEB 0.5 mg BID-RT TONY Administration Clonidine 0.1 mg 09/03/19 15:33 09/04/19 11:18 Catapres PO 0.1 mg Q4H PRN Administration SBP GREATER THAN 160 Doxycycline Hyclate 100 mg 09/11/19 09:00 09/12/19 08:56 Vibramycin PO 09/18/19 09:01 100 mg BID TONY Administration Enoxaparin Sodium 40 mg 08/27/19 21:00 09/11/19 21:09 Lovenox SC 40 mg 2100 TONY Administration Famotidine 20 mg 09/01/19 09:00 09/12/19 08:54 Pepcid PO 20 mg BID TONY Administration Guaifenesin/Dextromethorphan 10 ml 09/03/19 15:31 09/08/19 04:20 Robitussin Dm PO 10 ml Q4H PRN Administration Cough Hydralazine HCl 20 mg 08/31/19 14:23 09/11/19 04:27 Apresoline SLOW IVP 20 mg Q4H PRN Administration SBP >160 Sodium Chloride 1,000 mls @ 0 mls/hr 08/27/19 16:15 09/12/19 01:57 Normal Saline 0.9% IV 1,000 mls .Q0M TONY Administration KVO Levothyroxine Sodium 75 mcg 08/28/19 06:00 09/12/19 06:29 Synthroid PO Not Given 0600 TONY Lisinopril 20 mg 08/28/19 09:00 09/12/19 08:54 Zestril PO 20 mg DAILY TONY Administration Lorazepam 1 mg 09/09/19 14:25 09/12/19 01:32 Ativan SLOW IVP 1 mg Q2H PRN Administration Anxiety/Agitation Olanzapine 25 mg 08/27/19 21:00 09/11/19 21:09 Zyprexa PO 25 mg HS TONY Administration Prednisone 20 mg 09/12/19 08:00 09/12/19 08:52 Prednisone PO 20 mg QAM-WM TONY Administration Scopolamine 1.5 mg 09/09/19 08:30 09/12/19 08:55 Transderm Scop TD 1.5 mg Q3D TONY Administration Sodium Bicarbonate 650 mg 08/30/19 12:08 08/30/19 12:14 Bicarbonate, Sodium PER TUBE 650 mg PRN PRN Administration TUBE OCCLUSION TX Sodium Chloride 10 ml 08/30/19 21:00 09/12/19 08:58 Flush - Normal Saline IVF 10 ml Q12HR TONY Administration Sodium Chloride 10 ml 08/30/19 12:07 09/12/19 01:32 Flush - Normal Saline IVF 10 ml PRN PRN Administration Saline Flush Sterile Water 1 ml 09/03/19 17:00 09/10/19 09:41 Bacteriostatic Water FS 1 ml PRN PRN Administration RECONSTITUTION Trazodone HCl 50 mg 09/01/19 21:00 09/11/19 21:09 Desyrel PO 50 mg HS TONY Administration Valproic Acid 750 mg 09/09/19 21:00 09/12/19 09:14 Depakene Liquid PO 750 mg BID TONY Administration - Exam General Appearance: NAD, awake alert General - other findings: states one word responses Eye: PERRL, anicteric sclera ENT: normocephalic atraumatic, no oropharyngeal lesions Neck: supple, symmetric, no JVD, no thyromegaly, no lymphadenopathy Heart: RRR, no murmur, no gallops, no rubs, normal peripheral pulses Respiratory - other findings: coarse sounds bilat, diminished in bases Gastrointestinal: soft, non-tender, non-distended, normal bowel sounds, no palpable masses, no hepatomegaly Extremities: no cyanosis, no clubbing, 1+ LE edema Skin: normal turgor, no lesions Neurological: no new deficit Musculoskeletal: generalized weakness Psychiatric: oriented to person Hosp A/P (1) Acute hypercapnic respiratory failure Code(s): J96.02 - ACUTE RESPIRATORY FAILURE WITH HYPERCAPNIA Status: Acute Plan: Slowly improved, continues to require low-flow O2 via NC (2) PNA (pneumonia) Code(s): J18.9 - PNEUMONIA, UNSPECIFIED ORGANISM Status: Acute Plan: Slow resolution and component of tracheobronchitis, continue Doxycyline (3) Anemia, normocytic normochromic Code(s): D64.9 - ANEMIA, UNSPECIFIED Status: Chronic Plan: Stable currently, no active loss identified (4) Hypertension Code(s): I10 - ESSENTIAL (PRIMARY) HYPERTENSION Status: Chronic Qualifiers: Hypertension type: essential hypertension Qualified Code(s): I10 - Essential (primary) hypertension Plan: Continue Amlodipine/Lisinopril (5) Schizophrenia Code(s): F20.9 - SCHIZOPHRENIA, UNSPECIFIED Status: Chronic - Plan plan discussed w/ family, continue antibiotics, social problems specialist, speech therapy , respiratory therapy, DVT proph w/SCDs Continue supportive mgmt Continue Doxycycline Add Robitussin Elevate HOB Aspiration precautions Likely back to [facility] in 24-48h
[2019-09-12] MEDS: Guaifenesin DM 100-10/5 ML UDCUP PO PRN (14:51)
--- NOTE | 2019-09-12 19:02 | PRG ---
DATE OF SERVICE: 09/12/2019 SERVICE: Pulmonary Medicine. INTERVAL HISTORY: The patient is doing really well from respiratory standpoint. Breathing comfortably. No complaints of chest discomfort, nausea, or vomiting. She indicates that she is having increasing work of breathing. She is coughing and bringing up some white phlegm. Otherwise, she demonstrates decent strength. PHYSICAL EXAMINATION: VITAL SIGNS: Afebrile with a T-max of 99.8, pulse 65, blood pressure 149/67, respirations 20, and saturation 92% on 2 L nasal cannula. GENERAL: The patient is awake and alert, in no apparent distress. LUNGS: Good air entry bilaterally. Rhonchi and crackles are both present. No prolonged expiratory phase or wheezing is appreciated. HEART: Normal rate and regular. ABDOMEN: Soft, nontender, nondistended. Bowel sounds are positive. MUSCULOSKELETAL: No cyanosis or clubbing. There is trace pitting in the bilateral lower extremities. NEUROLOGIC: Grossly nonfocal. ASSESSMENT: 1. Acute hypoxic respiratory failure. 2. Morbid obesity. 3. Obstructive sleep apnea. 4. Tracheobronchitis secondary to methicillin-resistant Staphylococcus aureus. 5. Deconditioning. DISCUSSION AND PLAN: We will continue our mobilization efforts through time. We will try to get her out of bed into a chair 3 times daily. She will continue working with physical therapy. Antibiotics will be continued. We will look for increasing signs of sepsis. As she mobilizes, her risk of relapse will decrease. Critical Care will continue to follow. Job ID: [id number] [id number]
[2019-09-12] MEDS: OLANZapine 5 MG TAB PO SCH (20:26)
[2019-09-12] MEDS: traZODone HCl 50 MG TAB PO SCH (20:26)
[2019-09-12] MEDS: Enoxaparin Sodium 40 MG/0.4 ML SYRINGE SC SCH (20:27)
--- NOTE | 2019-09-12 23:10 | EKG ---
Test Reason : Blood Pressure : / mmHG Vent. Rate : 092 BPM Atrial Rate : 092 BPM P-R Int : 136 ms QRS Dur : 074 ms QT Int : 350 ms P-R-T Axes : 067 -05 047 degrees QTc Int : 432 ms Normal sinus rhythm with sinus arrhythmia Normal ECG Confirmed by АННА PIRES, СВЕТЛАНА Martel ([id number]), magazine editor MOE PRINCE ([id number]) on 09/12/2019 11:09:49 PM Referred By: Confirmed By:СВЕТЛАНА JJ MD
[2019-09-13] MEDS ORDERED: Lorazepam 0.5 MG TAB PO SCH (03:45)
[2019-09-13] MEDS ORDERED: Lorazepam 0.5 MG TAB PO PRN (04:15)
[2019-09-13] MEDS: Levothyroxine Sodium 75 MCG TAB PO SCH (06:00)
[2019-09-13] MEDS: Budesonide 0.5 MG/2 ML NEB NEB SCH ×2 (06:05→19:57)
[2019-09-13] MEDS: Lisinopril 20 MG TAB PO SCH (09:01)
[2019-09-13] MEDS: predniSONE 20 MG TAB PO SCH (09:01)
[2019-09-13] MEDS: Famotidine 20 MG TAB PO SCH ×2 (09:02→21:59)
[2019-09-13] MEDS: Amlodipine 5 MG TAB PO SCH (09:02)
[2019-09-13] MEDS: Valproate Sodium 250 mg/5 ml UD Cup PO SCH ×2 (09:04→22:00)
[2019-09-13] MEDS: Doxycycline 100 MG CAP PO SCH ×2 (09:04→21:43)
--- NOTE | 2019-09-13 13:31 | RAD ---
Portable chest: HISTORY: Shortness of breath COMPARISON: 09/07/2019 FINDINGS:Cardiomegaly. Mild vascular congestion. Bilateral effusions and bibasilar atelectasis/infilt rates have become more prominent since prior exam. IMPRESSION:Bilateral effusions and bibasilar infiltrate/atelectasis.
[2019-09-13] MEDS ORDERED: Furosemide 40 MG/4 ML VIAL ONE (13:39)
[2019-09-13] MEDS ORDERED: Furosemide 20 MG/2 ML VIAL SLOW IVP SCH ×2 (13:45→14:00)
--- NOTE | 2019-09-13 13:55 | PDOC.HOSPP ---
- Subjective Encounter Date: 09/13/19 Encounter Time: 13:40 Subjective: Called by nursing as pt having increased SOB and hypoxia titrated to 5L/min NC and now a NRB but saturations at 86%. No fever documented but nursing reports breathing rapid, coarse sounds and coughing. - Objective Vital Signs & Weight: Vital Signs (12 hours) Temp Pulse Resp BP BP Pulse Ox 09/13/19 10:18 72 24 H 09/13/19 09:02 74 165/73 H 09/13/19 09:01 165/73 H 09/13/19 08:00 92 L 09/13/19 07:40 98.7 F 74 24 H 165/73 H 92 L 09/13/19 06:05 68 16 09/13/19 03:04 69 24 H Weight Admit Weight 218 lb Weight 214 lb 8 oz Most Recent Monitor Data Heart Rate from ECG 79 NIBP 125/69 NIBP BP-Mean 87 Respiration from ECG 29 SpO2 91 I&O: 09/12/19 09/13/19 09/14/19 06:59 06:59 06:59 Intake Total 100 1300 Balance 100 1300 Result Diagrams: 09/10/19 06:51 09/10/19 06:51 Additional Labs: Microbiology 08/28/19 02:32 Sputum Respiratory Culture - Final 08/27/19 10:24 Urine canela catheter Urine Culture - Final Escherichia coli 08/27/19 10:14 Venous blood - Right Hand Blood Culture - Final NO GROWTH IN 5 DAYS 08/27/19 10:14 Venous blood - Right Arm Blood Culture - Final NO GROWTH IN 5 DAYS 08/27/19 09:53 Nasal swab Influenza Types A,B Direct EIA - Final Laboratory Tests 08/29/19 08/30/19 08/31/19 04:05 03:39 03:36 WBC 14.2 H 14.9 H 14.0 H Hgb 8.1 L 8.8 L 8.7 L Plt Count 384 475 H 469 H Band Neuts % (Manual) 28 H 19 H 19 H Vancomycin Trough 09/01/19 09/02/19 09/06/19 03:30 03:30 03:43 WBC 14.2 H 16.0 H 16.7 H Hgb 8.8 L 8.6 L 7.6 L Plt Count 421 H 402 H Band Neuts % (Manual) 19 H Vancomycin Trough 09/07/19 09/08/19 09/08/19 03:44 04:15 21:54 WBC 16.2 H 12.0 H Hgb 7.0 L 7.2 L Plt Count Band Neuts % (Manual) Vancomycin Trough 21.8 09/09/19 09/10/19 03:35 10:04 WBC 10.5 Hgb 7.6 L Plt Count Band Neuts % (Manual) Vancomycin Trough 20.7 Radiology Reviewed by me: Yes (PCXR - bilat effusions, infilitrates, pulm edema) Hospitalist ROS - Medication Medications: Active Medications Generic Name Dose Route Start Last Admin Trade Name Freq PRN Reason Stop Dose Admin Acetaminophen 650 mg 08/27/19 12:11 09/09/19 20:42 Tylenol PO 650 mg Q4H PRN Administration Headache/Fever/Mild Pain (1-3) Albuterol/Ipratropium 3 ml 08/27/19 18:30 09/13/19 10:18 Duoneb NEB 3 ml [id number] TONY Administration Amlodipine Besylate 5 mg 09/04/19 09:00 09/13/19 09:02 Norvasc PO 5 mg DAILY TONY Administration Budesonide 0.5 mg 09/01/19 18:30 09/13/19 06:05 Pulmicort Neb Solution NEB 0.5 mg BID-RT TONY Administration Clonidine 0.1 mg 09/03/19 15:33 09/04/19 11:18 Catapres PO 0.1 mg Q4H PRN Administration SBP GREATER THAN 160 Doxycycline Hyclate 100 mg 09/11/19 09:00 09/13/19 09:04 Vibramycin PO 09/18/19 09:01 100 mg BID TONY Administration Enoxaparin Sodium 40 mg 08/27/19 21:00 09/12/19 20:27 Lovenox SC 40 mg 2100 TONY Administration Famotidine 20 mg 09/01/19 09:00 09/13/19 09:02 Pepcid PO 20 mg BID TONY Administration Guaifenesin/Dextromethorphan 10 ml 09/03/19 15:31 09/12/19 14:51 Robitussin Dm PO 10 ml Q4H PRN Administration Cough Hydralazine HCl 20 mg 08/31/19 14:23 09/11/19 04:27 Apresoline SLOW IVP 20 mg Q4H PRN Administration SBP >160 Sodium Chloride 1,000 mls @ 0 mls/hr 08/27/19 16:15 09/12/19 01:57 Normal Saline 0.9% IV 1,000 mls .Q0M TONY Administration KVO Levothyroxine Sodium 75 mcg 08/28/19 06:00 09/13/19 06:00 Synthroid PO 75 mcg 0600 TONY Administration Lisinopril 20 mg 08/28/19 09:00 09/13/19 09:01 Zestril PO 20 mg DAILY TONY Administration Lorazepam 1 mg 09/09/19 14:25 09/12/19 01:32 Ativan SLOW IVP 1 mg Q2H PRN Administration Anxiety/Agitation Olanzapine 25 mg 08/27/19 21:00 09/12/19 20:26 Zyprexa PO 25 mg HS TONY Administration Prednisone 20 mg 09/12/19 08:00 09/13/19 09:01 Prednisone PO 20 mg QAM-WM TONY Administration Scopolamine 1.5 mg 09/09/19 08:30 09/12/19 08:55 Transderm Scop TD 1.5 mg Q3D TONY Administration Sodium Bicarbonate 650 mg 08/30/19 12:08 08/30/19 12:14 Bicarbonate, Sodium PER TUBE 650 mg PRN PRN Administration TUBE OCCLUSION TX Sodium Chloride 10 ml 08/30/19 21:00 09/13/19 09:05 Flush - Normal Saline IVF Not Given Q12HR TONY Sodium Chloride 10 ml 08/30/19 12:07 09/12/19 01:32 Flush - Normal Saline IVF 10 ml PRN PRN Administration Saline Flush Sterile Water 1 ml 09/03/19 17:00 09/10/19 09:41 Bacteriostatic Water FS 1 ml PRN PRN Administration RECONSTITUTION Trazodone HCl 50 mg 09/01/19 21:00 09/12/19 20:26 Desyrel PO 50 mg HS TONY Administration Valproic Acid 750 mg 09/09/19 21:00 09/13/19 09:04 Depakene Liquid PO 750 mg BID TONY Administration - Exam General Appearance: ill appearing General - other findings: resp distress, unable to state words, NRB in place Eye: PERRL, anicteric sclera ENT: normocephalic atraumatic, no oropharyngeal lesions Neck: supple, symmetric, no JVD, no thyromegaly, no lymphadenopathy Heart: no murmur, no gallops, no rubs, normal peripheral pulses Heart - other findings: tachycardic, S1, S2 Respiratory: rales, tachypneic Respiratory - other findings: diminished bilat, coarse in all [place] Gastrointestinal: soft, non-tender, non-distended, normal bowel sounds Gastrointestinal - other findings: obese Extremities: no cyanosis, 1+ LE edema Skin - other findings: flushed, warm to touch, diaphoretic Neurological: no new deficit Musculoskeletal: normal tone, generalized weakness Psychiatric: oriented to person Hosp A/P (1) Acute hypercapnic respiratory failure Code(s): J96.02 - ACUTE RESPIRATORY FAILURE WITH HYPERCAPNIA Status: Acute Plan: Persistent, Lasix 20mg IV x 2 doses now, Duonebs now, Solumedrol 125mg IV x 1 now, PCXR showing bilat infiltrates/effusions, trial BiPAP NIMV for comfort Start Cefepime/Clindamycin, Budesonide nebs (2) PNA (pneumonia) Code(s): J18.9 - PNEUMONIA, UNSPECIFIED ORGANISM Status: Acute Plan: Persistent, likely aspiration component, see above #1 (3) Anemia, normocytic normochromic Code(s): D64.9 - ANEMIA, UNSPECIFIED Status: Chronic (4) Hypertension Code(s): I10 - ESSENTIAL (PRIMARY) HYPERTENSION Status: Chronic Qualifiers: Hypertension type: essential hypertension Qualified Code(s): I10 - Essential (primary) hypertension (5) Schizophrenia Code(s): F20.9 - SCHIZOPHRENIA, UNSPECIFIED Status: Chronic - Plan plan discussed w/ family, continue antibiotics, medical social consultant, speech therapy , respiratory therapy, DVT proph w/SCDs Start BiPAP NIMV Solumedrol 125mg IV x 1 now Duonebs now Lasix 40mg IV total now Cefepime/Clindamycin IV now Add Robitussin Elevate HOB Aspiration precautions OIL WELL DIRECTIONAL SURVEYOR re-evaluation Code Status DNAR I personally provided 34min critical care
[2019-09-13] MEDS ORDERED: methylPREDNISolone Sod Succ/PF 125 MG/2 ML VIAL IVP SCH (14:00)
[2019-09-13] MEDS ORDERED: Cefepime 2 GM in Sodium Chloride 0.9% 100 ML IVPB SCH (14:00)
[2019-09-13] MEDS: Clindamycin/D5W 600 MG in Premix Bag 1 BAG IVPB SCH ×2 (14:55→21:10)
[2019-09-13] MEDS: Cefepime 2 GM in Sodium Chloride 0.9% 100 ML IVPB SCH (15:50)
[2019-09-13] MEDS: hydrALAZINE 20 MG/ML VIAL SLOW IVP PRN (16:32)
[2019-09-13] MEDS: Sodium Chloride 0.9% 1,000 ML IV SCH (17:48)
[2019-09-13] MEDS: methylPREDNISolone Sod Succ 40 MG VIAL IVP SCH (17:48)
[2019-09-13] MEDS ORDERED: Potassium Chloride 20 MEQ TAB PO SCH (21:00)
[2019-09-13] MEDS ORDERED: Fluconazole 100 MG TAB PO SCH (21:00)
--- NOTE | 2019-09-13 21:08 | PRG ---
DATE OF SERVICE: 09/13/2019 SERVICE: Pulmonary Medicine. INTERVAL HISTORY: The patient is doing poorly from respiratory standpoint. She was on room air up until 11 or 12 o'clock today. She started having increasing work of breathing. She was placed on BiPAP, and this improved her oxygenation, but she did not like it. As such, it was removed. She went back to nasal cannula, but suggested that she was not breathing well enough again. She got agitated and so she was placed on a nonrebreather. Since then, she has actually been a little bit more comfortable. She ended up getting a dose of Lasix. She had significant urine output with this and it seemed to improve some things. She is coughing and bringing up a little bit of white phlegm. PHYSICAL EXAMINATION: VITAL SIGNS: Afebrile, pulse 92, blood pressure 135/70, respirations 16, saturation 99%, currently on non-rebreather. GENERAL: The patient is awake and alert, in no apparent distress. LUNGS: Decent air entry. There is decreased air entry with no prolonged expiratory phase. Crackles and rhonchi are present. HEART: Normal rate, regular. ABDOMEN: Soft, nontender, nondistended. Bowel sounds are positive. MUSCULOSKELETAL: No cyanosis or clubbing. There is no pitting in the bilateral lower extremities. NEUROLOGIC: Grossly nonfocal. LABORATORY DATA: WBC 8.9, hemoglobin 8.0, platelets 419,000. PH 7.46, pCO2 of 42, pO2 of 80. Basic metabolic profile is essentially unremarkable except for a potassium of 3.7. Sodium 145 and gently up-trending. Sputum is growing methicillin-resistant Staph aureus from the . Urine was previously growing presumptive Leandra albicans. Originally urine culture was growing E coli. IMAGING STUDIES: Chest x-ray demonstrates bilateral effusions and bibasilar infiltrates versus atelectasis. ASSESSMENT: 1. Acute hypoxic respiratory failure with recurrence. 2. Pleural effusions, bilateral. 3. Obstructive sleep apnea. 4. Morbid obesity. 5. Tracheobronchitis secondary to methicillin-resistant Staphylococcus aureus. 6. Deconditioning, quite advanced. 7. Thrush. DISCUSSION AND PLAN: We will go ahead and put her on a 7-day course of fluconazole. Potassium will be replaced. I agree with diuretics through time. Pulmonary/Critical Care will continue to follow along while the patient remains inhouse. Job ID: [id number]
[2019-09-13] MEDS: OLANZapine 5 MG TAB PO SCH (21:39)
[2019-09-13] MEDS: traZODone HCl 50 MG TAB PO SCH (21:44)
[2019-09-13] MEDS: Enoxaparin Sodium 40 MG/0.4 ML SYRINGE SC SCH (21:59)
[2019-09-13] MEDS ORDERED: Potassium Chloride 20 MEQ in Premix Bag 1 BAG IVPB SCH (22:00)
[2019-09-14] MEDS: Lorazepam 2 MG/ML VIAL SLOW IVP PRN ×2 (00:22→05:07)
[2019-09-14] MEDS: methylPREDNISolone Sod Succ 40 MG VIAL IVP SCH ×5 (00:25→23:47)
[2019-09-14] MEDS: Clindamycin/D5W 600 MG in Premix Bag 1 BAG IVPB SCH ×4 (03:14→21:06)
[2019-09-14] MEDS: hydrALAZINE 20 MG/ML VIAL SLOW IVP PRN (04:16)
[2019-09-14] MEDS: Cefepime 2 GM in Sodium Chloride 0.9% 100 ML IVPB SCH ×2 (04:33→16:55)
[2019-09-14] MEDS: Levothyroxine Sodium 75 MCG TAB PO SCH (06:09)
[2019-09-14] MEDS: Bacteriostatic Water 30 ML VIAL FS PRN (06:10)
[2019-09-14] MEDS: Budesonide 0.5 MG/2 ML NEB NEB SCH ×2 (06:42→20:08)
[2019-09-14] MEDS ORDERED: Furosemide 40 MG/4 ML VIAL SLOW IVP SCH (09:00)
--- NOTE | 2019-09-14 09:07 | PDOC.HOSPP ---
- Subjective Encounter Date: 09/14/19 Encounter Time: 08:50 Subjective: f/u for acute resp failure likely multifactorial including CHF/ tracheobronchitis with MRSA/HOLLI/PNA. Brief trial of BiPAP yesterday now on face mask. Remains somnolent this am per nursing. - Objective Vital Signs & Weight: Vital Signs (12 hours) Temp Pulse Resp BP BP Pulse Ox 09/14/19 08:00 99.3 F 86 20 136/70 92 L 09/14/19 06:42 79 20 99 09/14/19 04:16 178/81 H 09/14/19 03:55 18 98 09/13/19 23:55 99.3 F 82 16 141/69 H 94 L 09/13/19 23:16 98 Weight Admit Weight 218 lb Weight 209 lb 1.6 oz Most Recent Monitor Data Heart Rate from ECG 79 NIBP 125/69 NIBP BP-Mean 87 Respiration from ECG 29 SpO2 91 I&O: 09/13/19 09/14/19 09/15/19 06:59 06:59 06:59 Intake Total 1300 1250 Output Total 1700 Balance 1300 -450 Result Diagrams: 09/10/19 06:51 09/10/19 06:51 Additional Labs: Microbiology 08/28/19 02:32 Sputum Respiratory Culture - Final 08/27/19 10:24 Urine canela catheter Urine Culture - Final Escherichia coli 08/27/19 10:14 Venous blood - Right Hand Blood Culture - Final NO GROWTH IN 5 DAYS 08/27/19 10:14 Venous blood - Right Arm Blood Culture - Final NO GROWTH IN 5 DAYS 08/27/19 09:53 Nasal swab Influenza Types A,B Direct EIA - Final Laboratory Tests 08/29/19 08/30/19 08/31/19 04:05 03:39 03:36 WBC 14.2 H 14.9 H 14.0 H Hgb 8.1 L 8.8 L 8.7 L Plt Count 384 475 H 469 H Band Neuts % (Manual) 28 H 19 H 19 H Vancomycin Trough 09/01/19 09/02/19 09/06/19 03:30 03:30 03:43 WBC 14.2 H 16.0 H 16.7 H Hgb 8.8 L 8.6 L 7.6 L Plt Count 421 H 402 H Band Neuts % (Manual) 19 H Vancomycin Trough 09/07/19 09/08/19 09/08/19 03:44 04:15 21:54 WBC 16.2 H 12.0 H Hgb 7.0 L 7.2 L Plt Count Band Neuts % (Manual) Vancomycin Trough 21.8 09/09/19 09/10/19 03:35 10:04 WBC 10.5 Hgb 7.6 L Plt Count Band Neuts % (Manual) Vancomycin Trough 20.7 Radiology Reviewed by me: Yes (PCXR - bilat effusions, infiltrates) Hospitalist ROS - Medication Medications: Active Medications Generic Name Dose Route Start Last Admin Trade Name Freq PRN Reason Stop Dose Admin Acetaminophen 650 mg 08/27/19 12:11 09/09/19 20:42 Tylenol PO 650 mg Q4H PRN Administration Headache/Fever/Mild Pain (1-3) Albuterol/Ipratropium 3 ml 08/27/19 18:30 09/14/19 06:44 Duoneb NEB 3 ml [id number] TONY Administration Amlodipine Besylate 5 mg 09/04/19 09:00 09/13/19 09:02 Norvasc PO 5 mg DAILY TONY Administration Budesonide 0.5 mg 09/01/19 18:30 09/14/19 06:42 Pulmicort Neb Solution NEB 0.5 mg BID-RT TONY Administration Clonidine 0.1 mg 09/03/19 15:33 09/04/19 11:18 Catapres PO 0.1 mg Q4H PRN Administration SBP GREATER THAN 160 Doxycycline Hyclate 100 mg 09/11/19 09:00 09/13/19 21:43 Vibramycin PO 09/18/19 09:01 Not Given BID TONY Enoxaparin Sodium 40 mg 08/27/19 21:00 09/13/19 21:59 Lovenox SC 40 mg 2100 TONY Administration Famotidine 20 mg 09/01/19 09:00 09/13/19 21:59 Pepcid PO Not Given BID TONY Guaifenesin/Dextromethorphan 10 ml 09/03/19 15:31 09/12/19 14:51 Robitussin Dm PO 10 ml Q4H PRN Administration Cough Hydralazine HCl 20 mg 08/31/19 14:23 09/14/19 04:16 Apresoline SLOW IVP 20 mg Q4H PRN Administration SBP >160 Sodium Chloride 1,000 mls @ 0 mls/hr 08/27/19 16:15 09/13/19 17:48 Normal Saline 0.9% IV 1,000 mls .Q0M TONY Administration KVO Clindamycin Phosphate/Dextrose 50 mls @ 100 mls/hr 09/13/19 15:00 09/14/19 03 :14 600 mg/ Device IVPB 50 mls 0300,0900,1500,2100 TONY Administration Cefepime HCl 2 gm/ Sodium 100 mls @ 200 mls/hr 09/13/19 16:00 09/14/19 04:33 Chloride IVPB 100 mls 0400,1600 TONY Administration Levothyroxine Sodium 75 mcg 08/28/19 06:00 09/14/19 06:09 Synthroid PO Not Given 0600 TONY Lisinopril 20 mg 08/28/19 09:00 09/13/19 09:01 Zestril PO 20 mg DAILY TONY Administration Lorazepam 1 mg 09/09/19 14:25 09/14/19 05:07 Ativan SLOW IVP 1 mg Q2H PRN Administration Anxiety/Agitation Methylprednisolone Sodium Succinate 40 mg 09/13/19 18:00 09/14/19 06:10 Solu-Medrol IVP 40 mg Q6HR TONY Administration Morphine Sulfate 2 mg 09/09/19 14:25 09/13/19 15:37 Morphine SLOW IVP 2 mg Q2H PRN Administration SOB/PAIN Olanzapine 25 mg 08/27/19 21:00 09/13/19 21:39 Zyprexa PO Not Given HS TONY Prednisone 20 mg 09/12/19 08:00 09/13/19 09:01 Prednisone PO 20 mg QAM-WM TONY Administration Scopolamine 1.5 mg 09/09/19 08:30 09/12/19 08:55 Transderm Scop TD 1.5 mg Q3D TONY Administration Sodium Bicarbonate 650 mg 08/30/19 12:08 08/30/19 12:14 Bicarbonate, Sodium PER TUBE 650 mg PRN PRN Administration TUBE OCCLUSION TX Sodium Chloride 10 ml 08/30/19 21:00 09/13/19 21:43 Flush - Normal Saline IVF Not Given Q12HR TONY Sodium Chloride 10 ml 08/30/19 12:07 09/12/19 01:32 Flush - Normal Saline IVF 10 ml PRN PRN Administration Saline Flush Sterile Water 1 ml 09/03/19 17:00 09/14/19 06:10 Bacteriostatic Water FS 1 ml PRN PRN Administration RECONSTITUTION Trazodone HCl 50 mg 09/01/19 21:00 09/13/19 21:44 Desyrel PO Not Given HS TONY Valproic Acid 750 mg 09/09/19 21:00 09/13/19 22:00 Depakene Liquid PO Not Given BID TONY - Exam General - other findings: somnolent, mod resp distress Eye: PERRL, anicteric sclera ENT: normocephalic atraumatic, no oropharyngeal lesions Neck: supple, symmetric, no JVD, no thyromegaly Heart: RRR, no murmur, no gallops, no rubs, normal peripheral pulses Respiratory - other findings: diminished and coarse sounds bilat Gastrointestinal: soft, non-tender, non-distended, normal bowel sounds, no palpable masses Extremities: no cyanosis, no clubbing, 1+ LE edema Skin: normal turgor, no lesions Musculoskeletal: generalized weakness Psychiatric: somnolent, lethargic Hosp A/P (1) Acute hypercapnic respiratory failure Code(s): J96.02 - ACUTE RESPIRATORY FAILURE WITH HYPERCAPNIA Status: Acute Plan: Multifactorial process, continue IV Lasix, O2 support to maintain sats >88% (2) PNA (pneumonia) Code(s): J18.9 - PNEUMONIA, UNSPECIFIED ORGANISM Status: Acute Plan: Likely continued aspiration, continue Cefepime/Clindamycin/Doxycycline, Duonebs , O2 support (3) Dysphagia Code(s): R13.10 - DYSPHAGIA, UNSPECIFIED Status: Chronic Qualifiers: Dysphagia type: oral phase Qualified Code(s): R13.11 - Dysphagia, oral phase Plan: PROPAGATION WORKER re-evaluation pending, NPO currently (4) Anemia, normocytic normochromic Code(s): D64.9 - ANEMIA, UNSPECIFIED Status: Chronic (5) Hypertension Code(s): I10 - ESSENTIAL (PRIMARY) HYPERTENSION Status: Chronic Qualifiers: Hypertension type: essential hypertension Qualified Code(s): I10 - Essential (primary) hypertension (6) Schizophrenia Code(s): F20.9 - SCHIZOPHRENIA, UNSPECIFIED Status: Chronic - Plan continue antibiotics, social services designee, speech therapy, respiratory therapy, DVT proph w/SCDs Continue O2 support with FM Jarrell q4h Lasix 40mg IV daily Cefepime/Clindamycin IV Add Robitussin Elevate HOB Aspiration precautions PROPAGATION WORKER re-evaluation NPO pending PROPAGATION WORKER evaluation Code Status DNAR
--- NOTE | 2019-09-14 09:21 | PRG ---
DATE OF SERVICE: 09/14/2019 SUBJECTIVE: This morning, she is surprisingly more lethargic than she was on Saturday. OBJECTIVE: VITAL SIGNS: Temperature 98, pulse is 86, saturations 90% on Ventimask, respirations 20, blood pressure 136/70. She has remained DNR as per family. X-ray surprisingly shows bilateral pleural effusion, left greater than right. CHEST: Decreased breath sounds. No wheezing. CARDIAC: Normal S1 and S2. No gallops. ABDOMEN: Soft. IMPRESSION: 1. Morbid obesity, congestive heart failure, diastolic dysfunction. 2. Aspiration pneumonia, methicillin-resistant Staphylococcus aureus. Primary care physician has restarted antibiotics. More than pneumonia, I think this is all stiff ventricle. Diuretics were initiated, which I would continue. No labs being ordered at this stage. Continue PT, supportive care. Prognosis is guarded, DNR. Job ID: [id number]
[2019-09-14] MEDS: Doxycycline 100 MG CAP PO SCH ×2 (09:31→21:09)
[2019-09-14] MEDS: predniSONE 20 MG TAB PO SCH (09:31)
[2019-09-14] MEDS: Amlodipine 5 MG TAB PO SCH (09:31)
[2019-09-14] MEDS: Famotidine 20 MG TAB PO SCH ×2 (09:31→21:09)
[2019-09-14] MEDS: Fluconazole 100 MG TAB PO SCH (09:32)
[2019-09-14] MEDS: Lisinopril 20 MG TAB PO SCH (09:33)
[2019-09-14] MEDS: Valproate Sodium 250 mg/5 ml UD Cup PO SCH ×2 (09:34→21:10)
--- NOTE | 2019-09-14 16:37 | PDOC.PALPN ---
Palliative Progress Note - Subjective On Venti mask, having visual hallucinations while I was in the room. Mild labored breathing, agitated but redirectable. - Objective Vital Signs: Vital Signs - Most Recent Temp Pulse Resp BP Pulse Ox 99.3 F 74 18 128/65 96 09/14/19 08:00 09/14/19 15:10 09/14/19 15:10 09/14/19 10:40 09/14/19 15:10 - Physical Exam Constitutional: confusion, ill appearing, mild distress HEENT: moist MMs, sclera anicteric Respiratory: diminished lung sound, labored respirations Deviation from normal: Adventicious bilaterally Cardiovascular: RRR Gastrointestinal: soft, non-tender, incontinent Genitourinary: incontinent Musculoskeletal: pulses present Neurology: moves all 4 limbs Skin: bruising, fragile Psychiatric: auditory hallucinations, visual hallucinations - Assessment (1) Palliative care encounter Code(s): Z51.5 - ENCOUNTER FOR PALLIATIVE CARE Current Visit: Yes Status: Acute (2) Physical deconditioning Code(s): R53.81 - OTHER MALAISE Current Visit: Yes Status: Acute (3) Acute hypercapnic respiratory failure Code(s): J96.02 - ACUTE RESPIRATORY FAILURE WITH HYPERCAPNIA Current Visit: Yes Status: Acute (4) Acute on chronic diastolic ACC/AHA stage C congestive heart failure Code(s): I50.33 - ACUTE ON CHRONIC DIASTOLIC (CONGESTIVE) HEART FAILURE Current Visit: No Status: Deleted (5) Obesity (BMI 30.0-34.9) Code(s): E66.9 - OBESITY, UNSPECIFIED Current Visit: No Status: Deleted (6) Schizophrenia Code(s): F20.9 - SCHIZOPHRENIA, UNSPECIFIED Current Visit: No Status: Chronic - Plan Plan: Speech to re-evaluate patient, however they have in the past and family had previously opted not to consider a trach. Sherrie Crenshaw RN to reach back out to family and request a family meeting to discuss goal of care as patient with poor disease trajectory and as they have confirmed decline prior to hospitalization. Once family meeting established will communicate with medical staff and nurse case management involved n care. Multiple family meetings, please refer to Sherrie Crenshaw RN notes in Note section. [40] minutes spent on this encounter with >50% of the time in counseling and coordination of care. - ROS Non Response: due to mental status
[2019-09-14] MEDS: Enoxaparin Sodium 40 MG/0.4 ML SYRINGE SC SCH (21:09)
[2019-09-14] MEDS: OLANZapine 5 MG TAB PO SCH (21:09)
[2019-09-14] MEDS: traZODone HCl 50 MG TAB PO SCH (21:09)
[2019-09-15] MEDS: Lorazepam 2 MG/ML VIAL SLOW IVP PRN (02:07)
[2019-09-15] MEDS: Clindamycin/D5W 600 MG in Premix Bag 1 BAG IVPB SCH ×4 (02:10→21:30)
[2019-09-15] MEDS: Cefepime 2 GM in Sodium Chloride 0.9% 100 ML IVPB SCH ×2 (04:38→15:13)
[2019-09-15] MEDS: methylPREDNISolone Sod Succ 40 MG VIAL IVP SCH ×3 (04:38→18:38)
[2019-09-15] MEDS: Levothyroxine Sodium 75 MCG TAB PO SCH (04:38)
[2019-09-15] MEDS: Budesonide 0.5 MG/2 ML NEB NEB SCH ×2 (07:40→18:21)
[2019-09-15] MEDS: Valproate Sodium 250 mg/5 ml UD Cup PO SCH ×2 (09:18→21:32)
[2019-09-15] MEDS: Famotidine 20 MG TAB PO SCH ×2 (09:19→21:31)
[2019-09-15] MEDS: Fluconazole 100 MG TAB PO SCH (09:19)
[2019-09-15] MEDS: Doxycycline 100 MG CAP PO SCH ×2 (09:19→21:31)
[2019-09-15] MEDS: Amlodipine 5 MG TAB PO SCH (09:19)
[2019-09-15] MEDS: predniSONE 20 MG TAB PO SCH (09:19)
[2019-09-15] MEDS: Lisinopril 20 MG TAB PO SCH (09:19)
--- NOTE | 2019-09-15 10:28 | PRG ---
DATE OF SERVICE: 09/15/2019 SUBJECTIVE: This morning, she is awake, alert, and responsive. OBJECTIVE: VITAL SIGNS: Temperature 97, pulse 80, respirations 40, saturations 98% on a Ventimask 50%, blood pressure 143/65. CHEST: Decreased breath sounds. No wheezing. CARDIAC: Normal S1 and S2. No gallops. ABDOMEN: No masses. IMPRESSION: Respiratory failure, diastolic dysfunction, morbid obesity, sleep apnea, bipolar, gram-positive tracheobronchitis. At this stage, I would continue comfort care. Empiric antibiotics, supportive care. Job ID: [id number]
[2019-09-15] MEDS: Scopolamine 1.5 mg/72 hour Patch TD SCH (11:42)
--- NOTE | 2019-09-15 14:39 | PDOC.HOSPP ---
- Subjective Encounter Date: 09/15/19 Encounter Time: 14:30 Subjective: f/u for PNA/tracheobronchitis with MRSA and aspiration component on current Cefepime/Diflucan/Doxycycline. Remains on O2 by FM but overall alert and interactive per nursing. - Objective Vital Signs & Weight: Vital Signs (12 hours) Temp Pulse Resp BP Pulse Ox 09/15/19 10:41 94 L 09/15/19 10:28 94 20 94 L 09/15/19 08:10 20 09/15/19 08:05 97.4 F L 80 44 H 143/65 H 93 L 09/15/19 07:40 77 20 95 09/15/19 03:18 95 Weight Admit Weight 218 lb Weight 209 lb 1.6 oz Most Recent Monitor Data Heart Rate from ECG 79 NIBP 125/69 NIBP BP-Mean 87 Respiration from ECG 29 SpO2 91 I&O: 09/14/19 09/15/19 09/16/19 06:59 06:59 06:59 Intake Total 1250 Output Total 1700 1400 Balance -450 -1400 Result Diagrams: 09/10/19 06:51 09/10/19 06:51 Additional Labs: Microbiology 08/28/19 02:32 Sputum Respiratory Culture - Final 08/27/19 10:24 Urine canela catheter Urine Culture - Final Escherichia coli 08/27/19 10:14 Venous blood - Right Hand Blood Culture - Final NO GROWTH IN 5 DAYS 08/27/19 10:14 Venous blood - Right Arm Blood Culture - Final NO GROWTH IN 5 DAYS 08/27/19 09:53 Nasal swab Influenza Types A,B Direct EIA - Final Laboratory Tests 08/29/19 08/30/19 08/31/19 04:05 03:39 03:36 WBC 14.2 H 14.9 H 14.0 H Hgb 8.1 L 8.8 L 8.7 L Plt Count 384 475 H 469 H Band Neuts % (Manual) 28 H 19 H 19 H Vancomycin Trough 09/01/19 09/02/19 09/06/19 03:30 03:30 03:43 WBC 14.2 H 16.0 H 16.7 H Hgb 8.8 L 8.6 L 7.6 L Plt Count 421 H 402 H Band Neuts % (Manual) 19 H Vancomycin Trough 09/07/19 09/08/19 09/08/19 03:44 04:15 21:54 WBC 16.2 H 12.0 H Hgb 7.0 L 7.2 L Plt Count Band Neuts % (Manual) Vancomycin Trough 21.8 09/09/19 09/10/19 03:35 10:04 WBC 10.5 Hgb 7.6 L Plt Count Band Neuts % (Manual) Vancomycin Trough 20.7 Hospitalist ROS - Medication Medications: Active Medications Generic Name Dose Route Start Last Admin Trade Name Freq PRN Reason Stop Dose Admin Acetaminophen 650 mg 08/27/19 12:11 09/09/19 20:42 Tylenol PO 650 mg Q4H PRN Administration Headache/Fever/Mild Pain (1-3) Albuterol/Ipratropium 3 ml 08/27/19 18:30 09/15/19 10:28 Duoneb NEB 3 ml [id number] TONY Administration Amlodipine Besylate 5 mg 09/04/19 09:00 09/15/19 09:19 Norvasc PO 5 mg DAILY TONY Administration Budesonide 0.5 mg 09/01/19 18:30 09/15/19 07:40 Pulmicort Neb Solution NEB 0.5 mg BID-RT TONY Administration Clonidine 0.1 mg 09/03/19 15:33 09/04/19 11:18 Catapres PO 0.1 mg Q4H PRN Administration SBP GREATER THAN 160 Doxycycline Hyclate 100 mg 09/11/19 09:00 09/15/19 09:19 Vibramycin PO 09/18/19 09:01 100 mg BID TONY Administration Enoxaparin Sodium 40 mg 08/27/19 21:00 09/14/19 21:09 Lovenox SC 40 mg 2100 TONY Administration Famotidine 20 mg 09/01/19 09:00 09/15/19 09:19 Pepcid PO 20 mg BID TONY Administration Fluconazole 100 mg 09/14/19 09:00 09/15/19 09:19 Diflucan PO 09/20/19 09:01 100 mg DAILY TONY Administration Guaifenesin/Dextromethorphan 10 ml 09/03/19 15:31 09/12/19 14:51 Robitussin Dm PO 10 ml Q4H PRN Administration Cough Hydralazine HCl 20 mg 08/31/19 14:23 09/14/19 04:16 Apresoline SLOW IVP 20 mg Q4H PRN Administration SBP >160 Sodium Chloride 1,000 mls @ 0 mls/hr 08/27/19 16:15 09/13/19 17:48 Normal Saline 0.9% IV 1,000 mls .Q0M TONY Administration KVO Clindamycin Phosphate/Dextrose 50 mls @ 100 mls/hr 09/13/19 15:00 09/15/19 09 :18 600 mg/ Device IVPB 50 mls 0300,0900,1500,2100 TONY Administration Cefepime HCl 2 gm/ Sodium 100 mls @ 200 mls/hr 09/13/19 16:00 09/15/19 04:38 Chloride IVPB 100 mls 0400,1600 TONY Administration Levothyroxine Sodium 75 mcg 08/28/19 06:00 09/15/19 04:38 Synthroid PO 75 mcg 0600 TONY Administration Lisinopril 20 mg 08/28/19 09:00 09/15/19 09:19 Zestril PO 20 mg DAILY TONY Administration Lorazepam 1 mg 09/09/19 14:25 09/15/19 02:07 Ativan SLOW IVP 1 mg Q2H PRN Administration Anxiety/Agitation Methylprednisolone Sodium Succinate 40 mg 09/13/19 18:00 09/15/19 11:40 Solu-Medrol IVP 40 mg Q6HR TONY Administration Morphine Sulfate 2 mg 09/09/19 14:25 09/13/19 15:37 Morphine SLOW IVP 2 mg Q2H PRN Administration SOB/PAIN Olanzapine 25 mg 08/27/19 21:00 09/14/19 21:09 Zyprexa PO 25 mg HS TONY Administration Prednisone 20 mg 09/12/19 08:00 09/15/19 09:19 Prednisone PO 20 mg QAM-WM TONY Administration Scopolamine 1.5 mg 09/09/19 08:30 09/15/19 11:42 Transderm Scop TD 1.5 mg Q3D TONY Administration Sodium Bicarbonate 650 mg 08/30/19 12:08 08/30/19 12:14 Bicarbonate, Sodium PER TUBE 650 mg PRN PRN Administration TUBE OCCLUSION TX Sodium Chloride 10 ml 08/30/19 21:00 09/15/19 10:49 Flush - Normal Saline IVF Not Given Q12HR TONY Sodium Chloride 10 ml 08/30/19 12:07 09/12/19 01:32 Flush - Normal Saline IVF 10 ml PRN PRN Administration Saline Flush Sterile Water 1 ml 09/03/19 17:00 09/14/19 06:10 Bacteriostatic Water FS 1 ml PRN PRN Administration RECONSTITUTION Trazodone HCl 50 mg 09/01/19 21:00 09/14/19 21:09 Desyrel PO 50 mg HS TONY Administration Valproic Acid 750 mg 09/09/19 21:00 09/15/19 09:18 Depakene Liquid PO 750 mg BID TONY Administration - Exam General Appearance: NAD, awake alert Eye: PERRL, anicteric sclera ENT: normocephalic atraumatic, no oropharyngeal lesions Neck: supple, symmetric, no JVD, no thyromegaly Heart: RRR, no murmur, no gallops, no rubs, normal peripheral pulses Respiratory: tachypneic Respiratory - other findings: coarse sounds in bases, diminished in bases Gastrointestinal: soft, non-tender, non-distended, normal bowel sounds, no palpable masses Extremities: no cyanosis, 1+ LE edema Skin: normal turgor, no lesions Neurological: cranial nerve grossly intact, no new deficit Musculoskeletal: normal tone, generalized weakness Psychiatric: oriented to person Hosp A/P (1) Acute hypercapnic respiratory failure Code(s): J96.02 - ACUTE RESPIRATORY FAILURE WITH HYPERCAPNIA Status: Acute Plan: Continue O2 support, Duonebs/Budesonide (2) PNA (pneumonia) Code(s): J18.9 - PNEUMONIA, UNSPECIFIED ORGANISM Status: Acute Plan: Continue Cefepime/Diflucan/Doxycycline (3) Dysphagia Code(s): R13.10 - DYSPHAGIA, UNSPECIFIED Status: Chronic Qualifiers: Dysphagia type: oral phase Qualified Code(s): R13.11 - Dysphagia, oral phase Plan: Diet with risk, family meeting to discuss correction plan and return to [place] setting (4) Anemia, normocytic normochromic Code(s): D64.9 - ANEMIA, UNSPECIFIED Status: Chronic (5) Hypertension Code(s): I10 - ESSENTIAL (PRIMARY) HYPERTENSION Status: Chronic Qualifiers: Hypertension type: essential hypertension Qualified Code(s): I10 - Essential (primary) hypertension (6) Schizophrenia Code(s): F20.9 - SCHIZOPHRENIA, UNSPECIFIED Status: Chronic - Plan continue antibiotics, psych social worker, speech therapy, respiratory therapy, DVT proph w/SCDs Continue O2 support with FM Duonebs q4h/Budesonide BID Cefepime/Diflucan/Doxycycline Add Robitussin Elevate HOB Aspiration precautions CATH LAB TECH re-evaluation Diet with risk currently Code Status DNAR
[2019-09-15] MEDS: Enoxaparin Sodium 40 MG/0.4 ML SYRINGE SC SCH (21:30)
[2019-09-15] MEDS: OLANZapine 5 MG TAB PO SCH (21:31)
[2019-09-15] MEDS: traZODone HCl 50 MG TAB PO SCH (21:32)
[2019-09-16] MEDS: methylPREDNISolone Sod Succ 40 MG VIAL IVP SCH ×4 (00:12→17:44)
[2019-09-16] MEDS: Guaifenesin DM 100-10/5 ML UDCUP PO PRN ×2 (03:10→21:02)
[2019-09-16] MEDS: Clindamycin/D5W 600 MG in Premix Bag 1 BAG IVPB SCH ×4 (03:47→21:01)
[2019-09-16] MEDS: Cefepime 2 GM in Sodium Chloride 0.9% 100 ML IVPB SCH ×2 (04:28→16:46)
[2019-09-16] MEDS: Lorazepam 2 MG/ML VIAL SLOW IVP PRN (04:28)
[2019-09-16] MEDS: Levothyroxine Sodium 75 MCG TAB PO SCH (06:07)
[2019-09-16] MEDS: Budesonide 0.5 MG/2 ML NEB NEB SCH ×2 (08:00→18:11)
--- NOTE | 2019-09-16 09:43 | PRG ---
DATE OF SERVICE: 09/16/2019 SUBJECTIVE: Noy Lara is a 74-year-old female, encephalopathic, short of breath. OBJECTIVE: VITAL SIGNS: Temperature 98, respiratory rate 18 , blood pressure 140/73. CHEST: Rhonchi, crackles. CARDIAC: Normal S1, S2. No gallops. ABDOMEN: No masses. ASSESSMENT AND PLAN: Multiorgan failure, aspiration pneumonia, morbid obesity, chronic obstructive pulmonary disease, bipolar, congestive heart failure. Comfort care. Consider inpatient hospice. Job ID: [id number]
[2019-09-16] MEDS: Lisinopril 20 MG TAB PO SCH (09:58)
[2019-09-16] MEDS: Fluconazole 100 MG TAB PO SCH (09:58)
[2019-09-16] MEDS: Doxycycline 100 MG CAP PO SCH ×2 (09:58→21:01)
[2019-09-16] MEDS: predniSONE 20 MG TAB PO SCH (09:59)
[2019-09-16] MEDS: Amlodipine 5 MG TAB PO SCH (09:59)
[2019-09-16] MEDS: Valproate Sodium 250 mg/5 ml UD Cup PO SCH ×2 (10:00→21:00)
[2019-09-16 13:58] VITALS: BMI 37.0
[2019-09-16] MEDS: Famotidine 20 MG TAB PO SCH ×2 (15:51→21:01)
--- NOTE | 2019-09-16 16:49 | PDOC.PALPN ---
Palliative Progress Note - Subjective Awake, pleasantly confused. O2 via nc. No distress, weakness as patient lists to the left and unable to maintain erect position without support. - Objective Vital Signs: Vital Signs - Most Recent Temp Pulse Resp BP Pulse Ox 98.8 F 90 16 143/73 H 92 L 09/16/19 08:13 09/16/19 15:07 09/16/19 15:07 09/16/19 08:13 09/16/19 15:07 - Physical Exam Constitutional: confusion, ill appearing HEENT: EOMI, moist MMs, sclera anicteric Respiratory: diminished lung sound Deviation from normal: bilaterally adventicious Cardiovascular: RRR Gastrointestinal: soft, non-tender, incontinent Genitourinary: incontinent Musculoskeletal: no cyanosis, no clubbing, diffuse muscle atrophy Neurology: moves all 4 limbs Skin: cap refill <2 seconds, no lesions, no rash Psychiatric: normal mood, auditory hallucinations Deviation from normal: Confusion, - Assessment (1) Palliative care encounter Code(s): Z51.5 - ENCOUNTER FOR PALLIATIVE CARE Current Visit: Yes Status: Acute (2) Physical deconditioning Code(s): R53.81 - OTHER MALAISE Current Visit: Yes Status: Acute (3) Acute hypercapnic respiratory failure Code(s): J96.02 - ACUTE RESPIRATORY FAILURE WITH HYPERCAPNIA Current Visit: Yes Status: Acute (4) Acute on chronic diastolic ACC/AHA stage C congestive heart failure Code(s): I50.33 - ACUTE ON CHRONIC DIASTOLIC (CONGESTIVE) HEART FAILURE Current Visit: No Status: Deleted (5) Obesity (BMI 30.0-34.9) Code(s): E66.9 - OBESITY, UNSPECIFIED Current Visit: No Status: Deleted (6) Schizophrenia Code(s): F20.9 - SCHIZOPHRENIA, UNSPECIFIED Current Visit: No Status: Chronic - Plan Plan: Lengthy conversation with patient sister Daisy and brother Don as well as Sherrie Crenshaw RNmailer via phone, as well as met with Patient sister Daisy in Ms Laras room.. Revisited decline and that a new baseline for Ms Lara has been established. Discussed care and suffering. Discussed continued disease trajectory and respiratory decline as well as comfort verses aggressive measures. Family is requesting to speak with hospice agencies, [facility] and [facility]. Choice letter completed, LEIDA Ace notified as well as Dr Kelsey and Dr Hartman. Family had several questions and concern in relation to discharge back to [facility], discussed that it may be optimal consideration to discharge back to [facility] with hospice overlay and if they remained concerned regarding care at facility they could transition to another [facility]. [75] minutes spent on this encounter with >50% of the time in counseling and coordination of care. - ROS Non Response: due to mental status (Not reliable ROS )
--- NOTE | 2019-09-16 17:33 | PDOC.HOSPP ---
- Subjective Encounter Date: 09/16/19 Encounter Time: 17:30 Subjective: f/u for PNA/tracheobronchitis with MRSA on current Cefepime/Diflucan/ Clindamycin. Remains on O2 @ 5L/min NC. Family meeting with Palliative care service to coordinate care and potential hospice after d/c. - Objective Vital Signs & Weight: Vital Signs (12 hours) Temp Pulse Resp BP Pulse Ox 09/16/19 15:07 90 16 92 L 09/16/19 11:09 75 16 94 L 09/16/19 08:13 98.8 F 68 18 143/73 H 96 09/16/19 08:01 96 09/16/19 08:00 96 09/16/19 07:58 56 L 16 98 Weight Admit Weight 218 lb 4.122 oz Weight 209 lb 1.6 oz Most Recent Monitor Data Heart Rate from ECG 79 NIBP 125/69 NIBP BP-Mean 87 Respiration from ECG 29 SpO2 91 I&O: 09/15/19 09/16/19 09/17/19 06:59 06:59 06:59 Intake Total 520 Output Total 1400 400 Balance -1400 120 Result Diagrams: 09/10/19 06:51 09/10/19 06:51 Additional Labs: Microbiology 08/28/19 02:32 Sputum Respiratory Culture - Final 08/27/19 10:24 Urine canela catheter Urine Culture - Final Escherichia coli 08/27/19 10:14 Venous blood - Right Hand Blood Culture - Final NO GROWTH IN 5 DAYS 08/27/19 10:14 Venous blood - Right Arm Blood Culture - Final NO GROWTH IN 5 DAYS 08/27/19 09:53 Nasal swab Influenza Types A,B Direct EIA - Final Laboratory Tests 08/29/19 08/30/19 08/31/19 04:05 03:39 03:36 WBC 14.2 H 14.9 H 14.0 H Hgb 8.1 L 8.8 L 8.7 L Plt Count 384 475 H 469 H Band Neuts % (Manual) 28 H 19 H 19 H Vancomycin Trough 09/01/19 09/02/19 09/06/19 03:30 03:30 03:43 WBC 14.2 H 16.0 H 16.7 H Hgb 8.8 L 8.6 L 7.6 L Plt Count 421 H 402 H Band Neuts % (Manual) 19 H Vancomycin Trough 09/07/19 09/08/19 09/08/19 03:44 04:15 21:54 WBC 16.2 H 12.0 H Hgb 7.0 L 7.2 L Plt Count Band Neuts % (Manual) Vancomycin Trough 21.8 09/09/19 09/10/19 03:35 10:04 WBC 10.5 Hgb 7.6 L Plt Count Band Neuts % (Manual) Vancomycin Trough 20.7 Hospitalist ROS - Medication Medications: Active Medications Generic Name Dose Route Start Last Admin Trade Name Freq PRN Reason Stop Dose Admin Acetaminophen 650 mg 08/27/19 12:11 09/09/19 20:42 Tylenol PO 650 mg Q4H PRN Administration Headache/Fever/Mild Pain (1-3) Albuterol/Ipratropium 3 ml 08/27/19 18:30 09/16/19 15:07 Duoneb NEB 3 ml [id number] TONY Administration Amlodipine Besylate 5 mg 09/04/19 09:00 09/16/19 09:59 Norvasc PO 5 mg DAILY TONY Administration Budesonide 0.5 mg 09/01/19 18:30 09/16/19 08:00 Pulmicort Neb Solution NEB 0.5 mg BID-RT TONY Administration Clonidine 0.1 mg 09/03/19 15:33 09/04/19 11:18 Catapres PO 0.1 mg Q4H PRN Administration SBP GREATER THAN 160 Doxycycline Hyclate 100 mg 09/11/19 09:00 09/16/19 09:58 Vibramycin PO 09/18/19 09:01 100 mg BID TONY Administration Enoxaparin Sodium 40 mg 08/27/19 21:00 09/15/19 21:30 Lovenox SC 40 mg 2100 TONY Administration Famotidine 20 mg 09/01/19 09:00 09/16/19 15:51 Pepcid PO 20 mg BID TONY Administration Fluconazole 100 mg 09/14/19 09:00 09/16/19 09:58 Diflucan PO 09/20/19 09:01 100 mg DAILY TONY Administration Guaifenesin/Dextromethorphan 10 ml 09/03/19 15:31 09/16/19 03:10 Robitussin Dm PO 10 ml Q4H PRN Administration Cough Hydralazine HCl 20 mg 08/31/19 14:23 09/14/19 04:16 Apresoline SLOW IVP 20 mg Q4H PRN Administration SBP >160 Sodium Chloride 1,000 mls @ 0 mls/hr 08/27/19 16:15 09/13/19 17:48 Normal Saline 0.9% IV 1,000 mls .Q0M TONY Administration KVO Clindamycin Phosphate/Dextrose 50 mls @ 100 mls/hr 09/13/19 15:00 09/16/19 15 :49 600 mg/ Device IVPB 50 mls 0300,0900,1500,2100 TONY Administration Cefepime HCl 2 gm/ Sodium 100 mls @ 200 mls/hr 09/13/19 16:00 09/16/19 16:46 Chloride IVPB 100 mls 0400,1600 TONY Administration Levothyroxine Sodium 75 mcg 08/28/19 06:00 09/16/19 06:07 Synthroid PO 75 mcg 0600 TONY Administration Lisinopril 20 mg 08/28/19 09:00 09/16/19 09:58 Zestril PO 20 mg DAILY TONY Administration Lorazepam 1 mg 09/09/19 14:25 09/16/19 04:28 Ativan SLOW IVP 1 mg Q2H PRN Administration Anxiety/Agitation Methylprednisolone Sodium Succinate 40 mg 09/13/19 18:00 09/16/19 13:47 Solu-Medrol IVP 40 mg Q6HR TONY Administration Morphine Sulfate 2 mg 09/09/19 14:25 09/13/19 15:37 Morphine SLOW IVP 2 mg Q2H PRN Administration SOB/PAIN Olanzapine 25 mg 08/27/19 21:00 09/15/19 21:31 Zyprexa PO 25 mg HS TONY Administration Prednisone 20 mg 09/12/19 08:00 09/16/19 09:59 Prednisone PO 20 mg QAM-WM TONY Administration Scopolamine 1.5 mg 09/09/19 08:30 09/15/19 11:42 Transderm Scop TD 1.5 mg Q3D TONY Administration Sodium Bicarbonate 650 mg 08/30/19 12:08 08/30/19 12:14 Bicarbonate, Sodium PER TUBE 650 mg PRN PRN Administration TUBE OCCLUSION TX Sodium Chloride 10 ml 08/30/19 21:00 09/16/19 10:00 Flush - Normal Saline IVF Not Given Q12HR TONY Sodium Chloride 10 ml 08/30/19 12:07 09/12/19 01:32 Flush - Normal Saline IVF 10 ml PRN PRN Administration Saline Flush Sterile Water 1 ml 09/03/19 17:00 09/14/19 06:10 Bacteriostatic Water FS 1 ml PRN PRN Administration RECONSTITUTION Trazodone HCl 50 mg 09/01/19 21:00 09/15/19 21:32 Desyrel PO 50 mg HS TONY Administration Valproic Acid 750 mg 09/09/19 21:00 09/16/19 10:00 Depakene Liquid PO 750 mg BID TONY Administration - Exam General Appearance: awake alert General - other findings: states a few words Eye: PERRL, anicteric sclera ENT: normocephalic atraumatic, no oropharyngeal lesions Neck: supple, symmetric, no JVD, no thyromegaly Heart: RRR, no murmur, no gallops, no rubs, normal peripheral pulses Respiratory - other findings: diminished in bases, coarse rhonchi scattered Gastrointestinal: soft, non-tender, non-distended, normal bowel sounds, no palpable masses Extremities: no cyanosis, no clubbing, no edema Skin: normal turgor Neurological: no new deficit Musculoskeletal: normal tone, generalized weakness Psychiatric: oriented to person Hosp A/P (1) Acute hypercapnic respiratory failure Code(s): J96.02 - ACUTE RESPIRATORY FAILURE WITH HYPERCAPNIA Status: Acute Plan: Remains on O2 @ 5L/min, continue supplementation (2) PNA (pneumonia) Code(s): J18.9 - PNEUMONIA, UNSPECIFIED ORGANISM Status: Acute Plan: Continue Cefepime/Clindamycin another 24h then de-escalate (3) Dysphagia Code(s): R13.10 - DYSPHAGIA, UNSPECIFIED Status: Chronic Qualifiers: Dysphagia type: oral phase Qualified Code(s): R13.11 - Dysphagia, oral phase Plan: Diet with risks (4) Anemia, normocytic normochromic Code(s): D64.9 - ANEMIA, UNSPECIFIED Status: Chronic (5) Hypertension Code(s): I10 - ESSENTIAL (PRIMARY) HYPERTENSION Status: Chronic Qualifiers: Hypertension type: essential hypertension Qualified Code(s): I10 - Essential (primary) hypertension (6) Schizophrenia Code(s): F20.9 - SCHIZOPHRENIA, UNSPECIFIED Status: Chronic - Plan continue antibiotics, social media editor, speech therapy, respiratory therapy, DVT proph w/SCDs Continue O2 support with FM Duonebs q4h/Budesonide BID Cefepime/Clindamycin another 24h then de-escalate Add Robitussin Elevate HOB Aspiration precautions [employer] re-evaluation Diet with risk currently Code Status DNAR Likely will transition back to SNF with hospice
[2019-09-16] MEDS: hydrALAZINE 20 MG/ML VIAL SLOW IVP PRN (20:59)
[2019-09-16] MEDS: traZODone HCl 50 MG TAB PO SCH (21:00)
[2019-09-16] MEDS: OLANZapine 5 MG TAB PO SCH (21:00)
[2019-09-16] MEDS: Enoxaparin Sodium 40 MG/0.4 ML SYRINGE SC SCH (21:00)
[2019-09-17] MEDS: Lorazepam 2 MG/ML VIAL SLOW IVP PRN (00:12)
[2019-09-17] MEDS: methylPREDNISolone Sod Succ 40 MG VIAL IVP SCH ×4 (00:12→18:20)
[2019-09-17] MEDS: Clindamycin/D5W 600 MG in Premix Bag 1 BAG IVPB SCH ×4 (02:54→20:27)
[2019-09-17] MEDS: Cefepime 2 GM in Sodium Chloride 0.9% 100 ML IVPB SCH ×2 (04:00→16:00)
[2019-09-17] MEDS: Levothyroxine Sodium 75 MCG TAB PO SCH (06:02)
[2019-09-17] MEDS: Valproate Sodium 250 mg/5 ml UD Cup PO SCH ×2 (08:40→20:20)
[2019-09-17] MEDS: predniSONE 20 MG TAB PO SCH (08:41)
[2019-09-17] MEDS: Amlodipine 5 MG TAB PO SCH (08:41)
[2019-09-17] MEDS: Lisinopril 20 MG TAB PO SCH (08:42)
[2019-09-17] MEDS: Doxycycline 100 MG CAP PO SCH ×2 (08:42→20:22)
[2019-09-17] MEDS: Famotidine 20 MG TAB PO SCH ×2 (08:42→20:24)
[2019-09-17] MEDS: Budesonide 0.5 MG/2 ML NEB NEB SCH ×2 (08:45→19:18)
[2019-09-17] MEDS: Fluconazole 100 MG TAB PO SCH (09:32)
--- NOTE | 2019-09-17 09:41 | PRG ---
DATE OF SERVICE: 09/17/2019 SUBJECTIVE: Noy Lara is a 74-year-old female to my surprise this morning living more responsive, though she is clearly encephalopathic and very weak. OBJECTIVE: VITAL SIGNS: Pulse 75, respirations 20, saturations are 95% on 5 L, blood pressure 180/75. CHEST: Bilateral rhonchi. CARDIAC: Normal S1 and S2. No gallops. ABDOMEN: No masses. LABORATORY DATA: No lab or x-ray is being ordered. Palliative Care spoke to family members considering inpatient hospice. IMPRESSION: 1. Respiratory failure secondary to aspiration pneumonia and diastolic dysfunction. 2. Morbid obesity. 3. Encephalopathy. Agree with inpatient hospice. Labs at any time. Job ID: [id number]
--- NOTE | 2019-09-17 19:05 | PDOC.HOSPP ---
- Subjective Encounter Date: 09/17/19 Encounter Time: 19:00 Subjective: f/u for resp failure/PNA/tracheobronchitis on Cefepime/Clindamycin. Nursing reports more awake, alert and interactive. - Objective Vital Signs & Weight: Vital Signs (12 hours) Temp Pulse Resp BP BP Pulse Ox 09/17/19 14:11 89 20 95 09/17/19 11:01 96 20 91 L 09/17/19 08:55 95 09/17/19 08:45 75 20 95 09/17/19 08:42 180/75 H 09/17/19 08:41 87 180/75 H 09/17/19 08:00 97.5 F L 87 18 180/75 H 18 L Weight Admit Weight 218 lb 4.122 oz Weight 209 lb 1.6 oz Most Recent Monitor Data Heart Rate from ECG 79 NIBP 125/69 NIBP BP-Mean 87 Respiration from ECG 29 SpO2 91 I&O: 09/16/19 09/17/19 09/18/19 06:59 06:59 06:59 Intake Total 520 1100 630 Output Total 400 Balance 120 1100 630 Result Diagrams: 09/10/19 06:51 09/10/19 06:51 Additional Labs: Microbiology 08/28/19 02:32 Sputum Respiratory Culture - Final 08/27/19 10:24 Urine canela catheter Urine Culture - Final Escherichia coli 08/27/19 10:14 Venous blood - Right Hand Blood Culture - Final NO GROWTH IN 5 DAYS 08/27/19 10:14 Venous blood - Right Arm Blood Culture - Final NO GROWTH IN 5 DAYS 08/27/19 09:53 Nasal swab Influenza Types A,B Direct EIA - Final Laboratory Tests 08/29/19 08/30/19 08/31/19 04:05 03:39 03:36 WBC 14.2 H 14.9 H 14.0 H Hgb 8.1 L 8.8 L 8.7 L Plt Count 384 475 H 469 H Band Neuts % (Manual) 28 H 19 H 19 H Vancomycin Trough 09/01/19 09/02/19 09/06/19 03:30 03:30 03:43 WBC 14.2 H 16.0 H 16.7 H Hgb 8.8 L 8.6 L 7.6 L Plt Count 421 H 402 H Band Neuts % (Manual) 19 H Vancomycin Trough 09/07/19 09/08/19 09/08/19 03:44 04:15 21:54 WBC 16.2 H 12.0 H Hgb 7.0 L 7.2 L Plt Count Band Neuts % (Manual) Vancomycin Trough 21.8 09/09/19 09/10/19 03:35 10:04 WBC 10.5 Hgb 7.6 L Plt Count Band Neuts % (Manual) Vancomycin Trough 20.7 Hospitalist ROS - Medication Medications: Active Medications Generic Name Dose Route Start Last Admin Trade Name Freq PRN Reason Stop Dose Admin Acetaminophen 650 mg 08/27/19 12:11 09/09/19 20:42 Tylenol PO 650 mg Q4H PRN Administration Headache/Fever/Mild Pain (1-3) Albuterol/Ipratropium 3 ml 08/27/19 18:30 09/17/19 14:11 Duoneb NEB 3 ml [id number] TONY Administration Amlodipine Besylate 5 mg 09/04/19 09:00 09/17/19 08:41 Norvasc PO 5 mg DAILY TONY Administration Budesonide 0.5 mg 09/01/19 18:30 09/17/19 08:45 Pulmicort Neb Solution NEB 0.5 mg BID-RT TONY Administration Clonidine 0.1 mg 09/03/19 15:33 09/04/19 11:18 Catapres PO 0.1 mg Q4H PRN Administration SBP GREATER THAN 160 Doxycycline Hyclate 100 mg 09/11/19 09:00 09/17/19 08:42 Vibramycin PO 09/18/19 09:01 100 mg BID TONY Administration Enoxaparin Sodium 40 mg 08/27/19 21:00 09/16/19 21:00 Lovenox SC 40 mg 2100 TONY Administration Famotidine 20 mg 09/01/19 09:00 09/17/19 08:42 Pepcid PO 20 mg BID TONY Administration Fluconazole 100 mg 09/14/19 09:00 09/17/19 09:32 Diflucan PO 09/20/19 09:01 100 mg DAILY TONY Administration Guaifenesin/Dextromethorphan 10 ml 09/03/19 15:31 09/16/19 21:02 Robitussin Dm PO 10 ml Q4H PRN Administration Cough Hydralazine HCl 20 mg 08/31/19 14:23 09/16/19 20:59 Apresoline SLOW IVP 20 mg Q4H PRN Administration SBP >160 Sodium Chloride 1,000 mls @ 0 mls/hr 08/27/19 16:15 09/13/19 17:48 Normal Saline 0.9% IV 1,000 mls .Q0M TONY Administration KVO Clindamycin Phosphate/Dextrose 50 mls @ 100 mls/hr 09/13/19 15:00 09/17/19 15 :22 600 mg/ Device IVPB 50 mls 0300,0900,1500,2100 TONY Administration Cefepime HCl 2 gm/ Sodium 100 mls @ 200 mls/hr 09/13/19 16:00 09/17/19 16:00 Chloride IVPB 100 mls 0400,1600 TONY Administration Levothyroxine Sodium 75 mcg 08/28/19 06:00 09/17/19 06:02 Synthroid PO 75 mcg 0600 TONY Administration Lisinopril 20 mg 08/28/19 09:00 09/17/19 08:42 Zestril PO 20 mg DAILY TONY Administration Lorazepam 1 mg 09/09/19 14:25 09/17/19 00:12 Ativan SLOW IVP 1 mg Q2H PRN Administration Anxiety/Agitation Methylprednisolone Sodium Succinate 40 mg 09/13/19 18:00 09/17/19 18:20 Solu-Medrol IVP 40 mg Q6HR TONY Administration Morphine Sulfate 2 mg 09/09/19 14:25 09/13/19 15:37 Morphine SLOW IVP 2 mg Q2H PRN Administration SOB/PAIN Olanzapine 25 mg 08/27/19 21:00 09/16/19 21:00 Zyprexa PO 25 mg HS TONY Administration Prednisone 20 mg 09/12/19 08:00 09/17/19 08:41 Prednisone PO 20 mg QAM-WM TONY Administration Scopolamine 1.5 mg 09/09/19 08:30 09/15/19 11:42 Transderm Scop TD 1.5 mg Q3D TONY Administration Sodium Bicarbonate 650 mg 08/30/19 12:08 08/30/19 12:14 Bicarbonate, Sodium PER TUBE 650 mg PRN PRN Administration TUBE OCCLUSION TX Sodium Chloride 10 ml 08/30/19 21:00 09/17/19 09:32 Flush - Normal Saline IVF 10 ml Q12HR TONY Administration Sodium Chloride 10 ml 08/30/19 12:07 09/12/19 01:32 Flush - Normal Saline IVF 10 ml PRN PRN Administration Saline Flush Sterile Water 1 ml 09/03/19 17:00 09/14/19 06:10 Bacteriostatic Water FS 1 ml PRN PRN Administration RECONSTITUTION Trazodone HCl 50 mg 09/01/19 21:00 09/16/19 21:00 Desyrel PO 50 mg HS TONY Administration Valproic Acid 750 mg 09/09/19 21:00 09/17/19 08:40 Depakene Liquid PO 750 mg BID TONY Administration - Exam General Appearance: NAD, awake alert General - other findings: smiling, responds to questions Eye: PERRL, anicteric sclera ENT: normocephalic atraumatic, no oropharyngeal lesions Neck: supple, symmetric, no JVD, no thyromegaly Heart: RRR, no murmur, no gallops, no rubs, normal peripheral pulses Respiratory - other findings: diminished bilat, occasional rhonchi and coarse sound Gastrointestinal: soft, non-tender, non-distended, normal bowel sounds, no palpable masses Extremities: no cyanosis, no clubbing, no edema Skin: normal turgor, no lesions Neurological: no new deficit Musculoskeletal: generalized weakness Psychiatric: oriented to person Hosp A/P (1) Acute hypercapnic respiratory failure Code(s): J96.02 - ACUTE RESPIRATORY FAILURE WITH HYPERCAPNIA Status: Acute Plan: Stable currently, continue O2 supplementation, Duonebs, Prednisone (2) PNA (pneumonia) Code(s): J18.9 - PNEUMONIA, UNSPECIFIED ORGANISM Status: Acute Plan: Continue Cefepime/Clindamycin another 24h then de-escalate (3) Dysphagia Code(s): R13.10 - DYSPHAGIA, UNSPECIFIED Status: Chronic Qualifiers: Dysphagia type: oral phase Qualified Code(s): R13.11 - Dysphagia, oral phase Plan: Modified diet with risks (4) Anemia, normocytic normochromic Code(s): D64.9 - ANEMIA, UNSPECIFIED Status: Chronic (5) Hypertension Code(s): I10 - ESSENTIAL (PRIMARY) HYPERTENSION Status: Chronic Qualifiers: Hypertension type: essential hypertension Qualified Code(s): I10 - Essential (primary) hypertension (6) Schizophrenia Code(s): F20.9 - SCHIZOPHRENIA, UNSPECIFIED Status: Chronic - Plan continue antibiotics, social work program coordinator, speech therapy, respiratory therapy, DVT proph w/SCDs Consults: Palliative Care Continue O2 support with FM Duonebs q4h/Budesonide BID Cefepime/Clindamycin another 24h then de-escalate D/C Solumedrol Add Robitussin Elevate HOB Aspiration precautions PROCESS PUMPER re-evaluation Diet with risk currently Code Status DNAR Likely will transition back to SNF +/- hospice
[2019-09-17] MEDS: OLANZapine 5 MG TAB PO SCH (20:24)
[2019-09-17] MEDS: traZODone HCl 50 MG TAB PO SCH (20:24)
[2019-09-17] MEDS: Enoxaparin Sodium 40 MG/0.4 ML SYRINGE SC SCH (20:26)
[2019-09-18] MEDS: Clindamycin/D5W 600 MG in Premix Bag 1 BAG IVPB SCH ×2 (03:16→09:34)
[2019-09-18] MEDS: Cefepime 2 GM in Sodium Chloride 0.9% 100 ML IVPB SCH (04:21)
[2019-09-18] MEDS: Budesonide 0.5 MG/2 ML NEB NEB SCH (06:20)
[2019-09-18] MEDS: Lisinopril 20 MG TAB PO SCH (09:32)
[2019-09-18] MEDS: Doxycycline 100 MG CAP PO SCH (09:33)
[2019-09-18] MEDS: Levothyroxine Sodium 75 MCG TAB PO SCH (09:33)
[2019-09-18] MEDS: Amlodipine 5 MG TAB PO SCH (09:33)
[2019-09-18] MEDS: predniSONE 20 MG TAB PO SCH (09:33)
[2019-09-18] MEDS: Fluconazole 100 MG TAB PO SCH (09:33)
[2019-09-18] MEDS: Famotidine 20 MG TAB PO SCH (09:33)
[2019-09-18] MEDS: Valproate Sodium 250 mg/5 ml UD Cup PO SCH (09:34)
[2019-09-18] MEDS: Scopolamine 1.5 mg/72 hour Patch TD SCH (09:36)
[2019-09-18 10:15] VITALS: BP 130/60; TEMP 97.8
--- NOTE | 2019-09-18 10:24 | PRG ---
DATE OF SERVICE: 09/18/2019 SUBJECTIVE: Noy Lara this morning more awake, less lethargic. OBJECTIVE: VITAL SIGNS: Pulse 94, blood pressure 180/75, saturations are 94% on 4 L. GENERAL: She apparently ate breakfast. CHEST: Decreased breath sounds, no wheezing. CARDIAC: Normal S1 and S2. No gallops. ABDOMEN: No masses. IMPRESSION: 1. Recurrent aspiration. 2. Bipolar. 3. Schizophrenia. 4. Diastolic dysfunction. PLAN: Pulmonary farley, placement. Nothing additional to offer at this stage. We will follow at a distance. She is a DNR. Job ID: [id number]
--- NOTE | 2019-09-19 00:24 | DIS ---
DATE OF ADMISSION: 08/27/2019 DATE OF DISCHARGE: 09/18/2019 DISCHARGE DIAGNOSES: 1. Acute hypercapnic hypoxic respiratory failure, multifactorial. 2. Pneumonia hospital acquired suspected gram-negative organisms. 3. Dysphagia. 4. Anemia secondary to chronic disease. 5. Hypertension. 6. Deconditioning. 7. Schizophrenia. 8. Nonambulatory status. CONSULTATIONS: Dr. Kelsey and Dr. James with Pulmonology Critical Care Service. PERTINENT LABORATORY AND X-RAY FINDINGS: BNP 200. Potassium level ranged between 3.5 to 5.3. CBC showed a white blood cell count ranged between 8.9 to 16.0, hemoglobin ranged between 7.0 to 8.9. Influenza A and B antigen dated 08/27/2019, negative. Blood cultures x2 dated 08/27/2019, showed no growth at 5 days. Urine culture dated 08/27/2019, showed greater than 100,000 colonies of E coli. Sputum culture dated 08/28/2019, showed rare normal respiratory lita. Urine culture dated 09/05/2019, showed 10 to 10003 colonies of presumptive Leandra species. Blood cultures x2 dated 09/05/2019, showed no growth at 5 days. Sputum culture dated 09/05/2019, showed methicillin resistant Staphylococcus aureus. Portable chest x-ray dated 08/27/2019, showed infiltrates in the right infrahilar left mid and left basilar lung regions. CT angiogram of the chest dated 08/27/2019, showed no evidence for pulmonary embolus. Infiltrates noted in the left perihilar region of the left upper lobe and superior segment of the right lower lobe. 2D transthoracic echocardiogram dated 08/28/2019, showed ejection fraction of 60% to 65%. Grade 1/3 diastolic dysfunction. Portable chest x-ray dated 08/31/2019, showed bilateral perihilar infiltrates. HOSPITAL COURSE: The patient was initially admitted after presenting with hypoxic respiratory failure and generalized weakness. Initial O2 sats were in the mid 80% range with low-grade fever and concern for sepsis. The patient was given initial trial of noninvasive mechanical ventilation with BiPAP, however, without specific improvement was placed on mechanical ventilation and transferred to the Critical Care Unit. The patient was treated for sepsis secondary to suspected initial bacterial community-acquired pneumonia. However, chest imaging did show multilobar involvement. The patient was evaluated by the Critical Care service and continued on broad-spectrum IV antibiotic therapy and given aggressive pulmonary supportive management. The patient remained on prolonged mechanical ventilation with concern for need for tracheostomy placement. The patient was given weaning trials and was able to tolerate weaning off mechanical ventilation, transitioning to oxygen by nasal cannula. The patient transitioned to the medical floor and remained on aggressive pulmonary supportive management. The patient's hospital stay was prolonged due to recurrent bouts of hypoxic respiratory failure, recurrent dysphagia and likely aspiration pneumonia. The patient was treated with a variety of IV antibiotic regimens including cefepime and clindamycin. The patient was also treated for suspected tracheobronchitis after methicillin-resistant Staphylococcus organism was identified on sputum culture, 09/05/2019. Due to patient's tenuous comorbid status, discussions were had with Palliative Care Service regarding long-term goals and potential for palliative measures. The family decided to pursue palliative and hospice care on an outpatient basis after transferring to nursing home. I have examined the patient at the time of discharge with followup instructions relayed to the family. Family in agreement for discharge on 09/18/2019. DISCHARGE MEDICATIONS: 1. Amlodipine 5 mg p.o. daily. 2. Vitamin C 500 mg p.o. daily. 3. Vitamin B12 of 1000 mcg p.o. daily. 4. Depakote 750 mg p.o. b.i.d. 5. Colace 100 mg p.o. daily. 6. Lasix 20 mg p.o. daily. 7. Robitussin DM 10 mL p.o. q.4 hours p.r.n. 8. Levothyroxine 75 mcg p.o. daily. 9. Lisinopril 20 mg p.o. daily. 10. Zyprexa 25 mg p.o. at bedtime. 11. Trazodone 50 mg p.o. at bedtime. 12. Multivitamin 1 tablet p.o. b.i.d. 13. Zantac 150 mg p.o. daily. 14. Budesonide nebulized solution 0.5 mg nebulized b.i.d. 15. Clindamycin 300 mg p.o. q.6 hours until 09/26/2019. 16. Diflucan 100 mg p.o. daily until 09/22/2019. 17. DuoNeb 3 mL nebulized q.6 hours p.r.n. 18. Prednisone 20 mg p.o. q.a.m. 19. Scopolamine patch 1.5 mg transdermally q.3 days. FOLLOWUP: The patient may follow up with at [facility]. CONDITION ON DISCHARGE: Guarded. ACTIVITY: Ad-miah. Bedbound status. DIET: Heart healthy with nectar thick liquids. Pureed texture. No straws and liquid by spoon. CODE STATUS: Do not attempt resuscitation. DISPOSITION: Discharged to [facility] with [facility], 09/18/2019. TIME SPENT: Total time preparing and coordinating discharge is 38 minutes. Job ID: [id number]
== END 2019-09-18 15:27 | DRG 870 ==
LOC: ERS 09:44 → CCU 11:44 → ONC 09-10 14:49
PROVIDERS: ADMIT Internal Medicine; ATTEND Family Medicine
PROC: 5A1935Z Respiratory Ventilation, Less than 24 Consecutive Hours (ICD-10-PCS; 2019-08-27)
PROC: 0BH17EZ Insertion of Endotracheal Airway into Trachea, Via Natural or Artificial Opening (ICD-10-PCS; 2019-08-27)
PROC: 5A1955Z Respiratory Ventilation, Greater than 96 Consecutive Hours (ICD-10-PCS; principal; 2019-08-28)
PROC: 0BH18EZ Insertion of Endotracheal Airway into Trachea, Via Natural or Artificial Opening Endoscopic (ICD-10-PCS; 2019-08-28)
DX: A41.50 Gram-negative sepsis, unspecified (principal); J96.01 Acute respiratory failure with hypoxia; G93.41 Metabolic encephalopathy; I50.33 Acute on chronic diastolic (congestive) heart failure; J96.02 Acute respiratory failure with hypercapnia; J69.0 Pneumonitis due to inhalation of food and vomit; J15.6 Pneumonia due to other Gram-negative bacteria; J44.0 Chronic obstructive pulmonary disease with (acute) lower respiratory infection; E66.2 Morbid (severe) obesity with alveolar hypoventilation; E87.4 Mixed disorder of acid-base balance; B37.49 Other urogenital candidiasis; N39.0 Urinary tract infection, site not specified; Z51.5 Encounter for palliative care; Z66 Do not resuscitate; Y95 Nosocomial condition; R13.10 Dysphagia, unspecified; D63.8 Anemia in other chronic diseases classified elsewhere; F20.9 Schizophrenia, unspecified; F31.9 Bipolar disorder, unspecified; E03.9 Hypothyroidism, unspecified; F03.90 Unspecified dementia, unspecified severity, without behavioral disturbance, psychotic disturbance, mood disturbance, and anxiety; E87.5 Hyperkalemia; B96.20 Unspecified Escherichia coli [E. coli] as the cause of diseases classified elsewhere; J40 Bronchitis, not specified as acute or chronic; R62.7 Adult failure to thrive; B95.62 Methicillin resistant Staphylococcus aureus infection as the cause of diseases classified elsewhere; I11.0 Hypertensive heart disease with heart failure; B37.9 Candidiasis, unspecified; Z74.01 Bed confinement status; Z99.3 Dependence on wheelchair; Z79.899 Other long term (current) drug therapy; Z79.890 Hormone replacement therapy; Z88.0 Allergy status to penicillin; Z68.37 Body mass index [BMI] 37.0-37.9, adult
CPT/HCPCS: 31500; 36415; 51702; 71045; 71275; 80048; 80053; 80202; 81003; 81015; 82805; 83605; 83880; 84484; 85007; 85025; 85027; 87040; 87070; 87077; 87086; 87186; 87205; 87804; 93005; 93306; 94002; 94003; 94640; 94660; 94760; 96361; 96365; 96375; J0360; J0456; J0692; J0696; J1120; J1650; J1940; J1956; J2060; J2185; J2250; J2270; J2704; J2920; J2930; J3010; J3370; J3480; J3490; J7050; J7512; J7620; J7626; Q9967; S0028